=== PATIENT | male | born 1980 ===

== ENCOUNTER 2017-09-23 04:29 | Inpatient (IN) | payer OTHER ==
[2017-09-23 04:47] VITALS: BMI 35.9
[2017-09-23 05:37] LABS: EOS # 0.1 K/uL (0.0-0.7); HEMOGLOBIN 7.9 g/dL (12.0-18.0); NRBC % 0.1 % (0.0-2.0)
[2017-09-23 05:48] LABS: ALB/GLOB RATIO 0.6 (1.0-2.1); ALBUMIN 3.6 g/dL (3.5-5.0); ALT/SGPT 20 U/L (21-72); AST/SGOT 126 U/L (17-59); BLOOD UREA NITROGEN 12 mg/dL (9-20); CALCIUM 8.7 mg/dl (8.6-10.4); GFR AFRICAN-AMERICAN > 60; GFR NON-AFRICAN AMERICAN > 60; LIPASE 507 U/L (23-300)
[2017-09-23 05:50] LABS: BASO # 0.1 K/uL (0.0-0.2); EOS % 1.1 % (0.0-4.0); LYMPH # 0.6 K/uL (1.0-4.3); LYMPH % 6.6 % (20.0-40.0); MEAN CELL VOLUME 100.6 fL (80.0-94.0); MEAN CORPUSCULAR HEMOGLOBIN 34.8 pg (27.0-31.0); MEAN CORPUSCULAR HGB CONC 34.6 g/dL (33.0-37.0); MEAN PLATELET VOLUME 8.5 fL (7.2-11.7); MONO % 10.6 % (0.0-10.0); NEUT # 7.4 K/uL (1.8-7.0); NEUT % 80.7 % (50.0-75.0); PLATELET COUNT 64 K/uL (130-400); RBC 2.27 Mil/uL (4.40-5.90); RED CELL DISTRIBUTION WIDTH 19.7 % (11.5-14.5); WHITE BLOOD COUNT 9.1 K/uL (4.8-10.8)
[2017-09-23 05:54] LABS: INR 1.9; PROTHROMBIN TIME 21.5 SECONDS (9.7-12.2)
[2017-09-23] MEDS ORDERED: Iodixanol 320 MG/ML 100 ML BOTTLE IV ONE (05:55)
[2017-09-23 06:20] LABS: BARBITURATES, UR NEGATIVE (NEGATIVE); BENZODIAZEPINES, UR NEGATIVE (NEGATIVE); OPIATES, UR NEGATIVE (NEGATIVE); PHENCYCLIDINE, UR NEGATIVE (NEGATIVE)
--- NOTE | 2017-09-23 06:24 | C.PDOC ---
History Of Present Illness <Bhaskar Burrows - Last Filed: 09/23/17 06:39> <Devi Richards - Last Filed: 09/23/17 17:32> 37 year old male presents to the ER with a complaint of dark stools, icteric skin, and increasing leg edema for the past 4 days. Patient reports he drinks a liter of vodka a day for many years. Patient participated in ETOG detox in 2016 but relapsed soon after. Denies chest pain, SOB, fever, or chills. (Bhaskar Burrows) History Per: Patient History/Exam Limitations: no limitations Onset/Duration Of Symptoms: Days Current Symptoms Are (Timing): Still Present Recent travel outside of the [place]: No <Bhaskar Burrows - Last Filed: 09/23/17 06:39> <Devi Richards - Last Filed: 09/23/17 17:32> Time Seen by Provider: 09/23/17 04:55 Chief Complaint (Nursing): Lower Extremity Problem/Injury Past Medical History Reviewed: Historical Data, Nursing Documentation, Vital Signs Family History: States: Unknown Family Hx - Social History Hx Alcohol Use: Yes (1 LITER OF VODKA) Hx Substance Use: No - Immunization History Hx Tetanus Toxoid Vaccination: Yes Hx Influenza Vaccination: No Hx Pneumococcal Vaccination: No <Bhaskar Burrows - Last Filed: 09/23/17 06:39> Vital Signs: Last Vital Signs Temp 99.1 F 09/23/17 15:30 Pulse 112 H 09/23/17 15:30 Resp 20 09/23/17 15:30 BP 123/60 09/23/17 15:30 Pulse Ox 98 09/23/17 15:30 Review Of Systems Constitutional: Negative for: Fever, Chills Cardiovascular: Negative for: Chest Pain, Palpitations Respiratory: Negative for: Shortness of Breath Gastrointestinal: Positive for: Other (Dark stools). Negative for: Abdominal Pain Skin: Positive for: Jaundice <Bhaskar Burrows - Last Filed: 09/23/17 06:39> Physical Exam - Physical Exam Appears: Non-toxic, Other (Tremulous and anxious) Skin: Warm, Dry, Jaundice Head: Atraumatic, Normacephalic Eye(s): bilateral: Scleral Icterus Oral Mucosa: Moist Neck: Normal, Supple Chest: Symmetrical, No Tenderness Cardiovascular: Rhythm Regular Respiratory: Normal Breath Sounds, No Rales, No Rhonchi, No Wheezing Gastrointestinal/Abdominal: Soft, Other (Obese, enlarged liver, positive fluid wave) Extremity: Pedal Edema (Pitting to lower extremity up to the hips 4/4 symmetrically) Neurological/Psych: Oriented x3, Normal Speech <Bhaskar Burrows - Last Filed: 09/23/17 06:39> ED Course And Treatment - Laboratory Results Result Diagrams: 09/23/17 05:29 09/23/17 05:29 Lab Interpretation: Abnormal (t-bili) O2 Sat by Pulse Oximetry: 98 (Room air) Pulse Ox Interpretation: Normal - Radiology CXR: Interpreted by Hi CXR Interpretation: Yes: No Acute Disease Progress Note: CT abd/pel, blood work, CXR, and urinalysis ordered. Ativan administered. Reevaluation Time: 06:41 Reassessment Condition: Improved - Physician Consult Information Outcome Of Conversation: [id number]: d/w Medicine Household Coordinator- Dr. Kvng Ballard, ok to admit. <Bhaskar Burrows - Last Filed: 09/23/17 06:39> - Laboratory Results Result Diagrams: 09/23/17 11:18 09/23/17 05:29 <Devi Richards - Last Filed: 09/23/17 17:32> Medical Decision Making <Bhaskar Burrows - Last Filed: 09/23/17 06:39> <Devi Richards - Last Filed: 09/23/17 17:32> Medical Decision Making: alcohol abuse, hepatic cirrhosis, hepato-splenomegaly, upper GI bleed, probably variceal vs gastritis, liver failure with icterus. (Bhaskar Burrows) Disposition Doctor Will See Patient In The: Hospital Counseled Patient/Family Regarding: Studies Performed, Diagnosis - Disposition Disposition Time: 06:43 <Bhaskar Burrows - Last Filed: 09/23/17 06:39> <Devi Richards - Last Filed: 09/23/17 17:32> - Disposition Disposition: HOSPITALIZED Condition: FAIR - Clinical Impression Clinical Impression: Upper GI bleed, Decompensated hepatic cirrhosis - Scribe Statement The provider has reviewed the documentation as recorded by the Scribe <Bhaskar Burrows - Last Filed: 09/23/17 06:39> <Devi Richards - Last Filed: 09/23/17 17:32> - Scribe Statement Melvin Giraldo All medical record entries made by the Scribe were at my direction and personally dictated by me. I have reviewed the chart and agree that the record accurately reflects my personal performance of the history, physical exam, medical decision making, and the department course for this patient. I have also personally directed, reviewed, and agree with the discharge instructions and disposition. (Bhaskar Burrows) Addendum <Bhaskar Burrows - Last Filed: 09/23/17 06:39> <Devi Richards - Last Filed: 09/23/17 17:32> Addendum: 09/23/17 17:32 I was not involved in the care of this patient. (Devi Richards)
[2017-09-23 06:25] LABS: GRANULAR CAST 10 /lpf (0-1); SQUAMOUS EPITHIAL 1 /hpf (0-5); URINE BACTERIA RARE (<OCC); URINE BILIRUBIN 1+ (NEGATIVE); URINE BLOOD NEGATIVE (NEGATIVE); URINE CLARITY Hazy (Clear); URINE COLOR Amber (YELLOW); URINE GLUCOSE (UA) NORMAL (Normal); URINE LEUKOCYTE ESTERASE NEG Leu/uL (Negative); URINE PROTEIN 2+ mg/dL (NEGATIVE)
[2017-09-23 07:06] LABS: ANISOCYTOSIS MODERATE; BASOPHIL 1 % (0-2); EOSINOPHIL 1 % (0-4); LYMPHOCYTE 4 % (20-40); MONOCYTE 8 % (0-10); NEUTROPHIL 86 % (50-75); PLATELET ESTIMATE DECREASED (NORMAL); TARGET CELLS SLIGHT; TOTAL CELLS COUNTED 100
[2017-09-23 07:07] LABS: POLYCHROMIC SLIGHT; TEARDROP CELLS SLIGHT
--- NOTE | 2017-09-23 07:59 | CT ---
EXAM: CT Abdomen and Pelvis With Intravenous Contrast EXAM DATE/TIME: 09/23/2017 5:10 AM CLINICAL HISTORY: 37 years old, male; Pain; Abdominal pain and other: Abd ascites, liver failure TECHNIQUE: Axial computed tomography images of the abdomen and pelvis with intravenous contrast. All CT scans at this facility use one or more dose reduction techniques, viz.: automated exposure control; ma/kV adjustment per patient size (including targeted exams where dose is matched to indication; i.e. head); or iterative reconstruction technique. Coronal and sagittal reformatted images were created and reviewed. CONTRAST: 100 mL of [id number] administered intravenously. COMPARISON: No relevant prior studies available. FINDINGS: There is only faint contrast present within the vasculature and solid organs. There is sludge and calculi within the gallbladder. The gallbladder wall is thickened which could be due to overall edema versus acute infectious/inflammatory process. The liver and spleen are enlarged. There are varices throughout the upper abdomen. Pancreas, adrenals, and kidneys are normal. Decompressed urinary bladder limiting evaluation for wall thickness. The suprarenal aorta measures 2.1 cm in maximal dimensions of the infrarenal aorta measures 1.8 cm. There is a trace amount of perihepatic fluid. The right psoas muscle and right iliopsoas muscle are enlarged with indistinct borders (measuring 8 x 6.5 cm on the right compared to 5 x 4.5 cm on the left). There is stranding surrounding the right psoas muscle most notably along the anterior aspect. Diagnostic possibilities would include infectious/inflammatory process versus hematoma. Correlation with clinical symptoms and laboratory values may be helpful. There is slight mass effect upon the right femoral vessels by the enlarged right iliopsoas muscle. IMPRESSION: Hepatomegaly and splenomegaly. Varices. Cholelithiasis with thickened gallbladder wall. Clinical correlation with regard to signs/symptoms of cholecystitis. Ultrasound if indicated. Enlarged indistinct right psoas muscle and right iliopsoas muscle with surrounding stranding most notably along the anterior aspect. Diagnostic possibilities would include infectious/inflammatory process versus hematoma. Correlation with clinical symptoms and laboratory values may be helpful
--- NOTE | 2017-09-23 08:39 | RAD ---
PROCEDURE: CHEST RADIOGRAPH, 1 VIEW HISTORY: abd pain COMPARISON: None available. FINDINGS: LUNGS: Examination limited by severe apical lordotic positioning. No infiltrate. PLEURA: No pneumothorax or pleural fluid seen. CARDIOVASCULAR: Normal. OSSEOUS STRUCTURES: No significant abnormalities. VISUALIZED UPPER ABDOMEN: Normal. OTHER FINDINGS: None. IMPRESSION: No active disease.
[2017-09-23] MEDS ORDERED: Pneumococcal 23-Valent Vaccine SC ONE (09:41)
[2017-09-23] MEDS: Potassium Chloride 20 mEq ER Tab PO SCH (11:04)
[2017-09-23 11:51] LABS: BASO # 0.1 K/uL (0.0-0.2); BASO % 0.9 % (0.0-2.0); EOS # 0.1 K/uL (0.0-0.7); EOS % 1.5 % (0.0-4.0); HEMOGLOBIN 7.3 g/dL (12.0-18.0); LYMPH # 1.1 K/uL (1.0-4.3); LYMPH % 12.8 % (20.0-40.0); MEAN CORPUSCULAR HEMOGLOBIN 34.4 pg (27.0-31.0); MEAN CORPUSCULAR HGB CONC 34.1 g/dL (33.0-37.0); MEAN PLATELET VOLUME 8.5 fL (7.2-11.7); MONO % 11.9 % (0.0-10.0); NEUT % 72.9 % (50.0-75.0); NRBC % 0.2 % (0.0-2.0); RBC 2.11 Mil/uL (4.40-5.90); WHITE BLOOD COUNT 8.3 K/uL (4.8-10.8)
[2017-09-23] MEDS ORDERED: FOLIC ACID IV SCH (14:30)
[2017-09-23] MEDS: metroNIDAZOLE IV 250mg/50 ml 250 MG/50 ML BAG IVPB SCH (14:30)
[2017-09-23] MEDS ORDERED: THIAMINE IV SCH (14:30)
[2017-09-23] MEDS ORDERED: [UNRECOGNIZED DRUG - OTHER] IV SCH (14:30)
[2017-09-23] MEDS ORDERED: MULTIVITAMIN IV SCH (14:30)
--- NOTE | 2017-09-23 14:40 | CP.PCM.HP ---
Past Patient History - Past Medical History & Family History Past Medical History?: No - Past Social History Smoking Status: Former Smoker - HEMATOLOGICAL/ONCOLOGICAL Hx Cirrhosis: Yes - MUSCULOSKELETAL/RHEUMATOLOGICAL Hx Falls: Yes - PSYCHIATRIC Hx Substance Use: No - SURGICAL HISTORY Hx Surgeries: No - ANESTHESIA Hx Anesthesia: No Meds Allergies/Adverse Reactions: Allergies Allergy/AdvReac Type Severity Reaction Status Date / Time No Known Allergies Allergy Verified 09/23/17 04:46 Physical Exam - Constitutional Appears: Well - Head Exam Head Exam: ATRAUMATIC, NORMAL INSPECTION, NORMOCEPHALIC - Eye Exam Eye Exam: EOMI, Normal appearance, PERRL Pupil Exam: NORMAL ACCOMODATION, PERRL - ENT Exam ENT Exam: Mucous Membranes Moist, Normal Exam - Neck Exam Neck exam: Positive for: Normal Inspection - Respiratory Exam Respiratory Exam: Decreased Breath Sounds - Cardiovascular Exam Cardiovascular Exam: REGULAR RHYTHM, +S1, +S2 - GI/Abdominal Exam GI & Abdominal Exam: Diminished Bowel Sounds, Soft - Rectal Exam Rectal Exam: Deferred Results - Vital Signs Recent Vital Signs: Last Vital Signs Temp 98.6 F 09/23/17 08:39 Pulse 114 H 09/23/17 08:39 Resp 20 09/23/17 08:39 BP 127/60 09/23/17 10:59 Pulse Ox 99 09/23/17 08:39 - Labs Result Diagrams: 09/23/17 11:18 09/23/17 05:29 Labs: Laboratory Results - last 24 hr 09/23/17 09/23/17 09/23/17 05:29 05:29 05:29 WBC 9.1 RBC 2.27 L Hgb 7.9 L Hct 22.8 L MCV 100.6 H MCH 34.8 H MCHC 34.6 RDW 19.7 H Plt Count 64 L MPV 8.5 Neut % (Auto) 80.7 H Lymph % (Auto) 6.6 L Crawford % (Auto) 10.6 H Eos % (Auto) 1.1 Baso % (Auto) 1.0 Neut # (Auto) 7.4 H Lymph # (Auto) 0.6 L Crawford # (Auto) 1.0 H Eos # (Auto) 0.1 Baso # (Auto) 0.1 Neutrophils % (Manual) 86 H Lymphocytes % (Manual) 4 L Monocytes % (Manual) 8 Eosinophils % (Manual) 1 Basophils % (Manual) 1 Platelet Estimate Decreased L Polychromasia Slight Anisocytosis (manual) Moderate Macrocytosis (manual) Moderate Target Cells Slight Tear Drop Cells Slight PT 21.5 H INR 1.9 APTT 39 H Sodium 140 Potassium 3.3 L Chloride 101 Carbon Dioxide 17 L Anion Gap 25 H BUN 12 Creatinine 0.6 L Est GFR ( Amer) > 60 Est GFR (Non-Af Amer) > 60 Random Glucose 116 H Lactic Acid Calcium 8.7 Total Bilirubin 12.1 H AST 126 H ALT 20 L Alkaline Phosphatase 147 H Ammonia Total Protein 9.7 H Albumin 3.6 Globulin 6.1 H Albumin/Globulin Ratio 0.6 L Lipase 507 H Urine Color Urine Clarity Urine pH Ur Specific [place] Urine Protein Urine Glucose (UA) Urine Ketones Urine Blood Urine Nitrate Urine Bilirubin Urine Urobilinogen Ur Leukocyte Esterase Urine WBC (Auto) Urine RBC (Auto) Ur Squamous Epith Cells Urine Bacteria Hyaline Casts Granular Casts (Auto) Urine Opiates Screen Urine Methadone Screen Ur Barbiturates Screen Ur Phencyclidine Scrn Ur Amphetamines Screen U Benzodiazepines Scrn U Oth Cocaine Metabols U Cannabinoids Screen Alcohol, Quantitative < 10 Blood Type Blood Type Confirm Antibody Screen 09/23/17 09/23/17 09/23/17 05:29 05:36 06:01 WBC RBC Hgb Hct MCV MCH MCHC RDW Plt Count MPV Neut % (Auto) Lymph % (Auto) Crawford % (Auto) Eos % (Auto) Baso % (Auto) Neut # (Auto) Lymph # (Auto) Crawford # (Auto) Eos # (Auto) Baso # (Auto) Neutrophils % (Manual) Lymphocytes % (Manual) Monocytes % (Manual) Eosinophils % (Manual) Basophils % (Manual) Platelet Estimate Polychromasia Anisocytosis (manual) Macrocytosis (manual) Target Cells Tear Drop Cells PT INR APTT Sodium Potassium Chloride Carbon Dioxide Anion Gap BUN Creatinine Est GFR ( Amer) Est GFR (Non-Af Amer) Random Glucose Lactic Acid 4.0 H* Calcium Total Bilirubin AST ALT Alkaline Phosphatase Ammonia 40 H Total Protein Albumin Globulin Albumin/Globulin Ratio Lipase Urine Color Shahana Urine Clarity Hazy Urine pH 5.0 Ur Specific [place] 1.023 Urine Protein 2+ H Urine Glucose (UA) Normal Urine Ketones 1+ H Urine Blood Negative Urine Nitrate Negative Urine Bilirubin 1+ H Urine Urobilinogen 4.0 Ur Leukocyte Esterase Neg Urine WBC (Auto) 3 Urine RBC (Auto) < 1 Ur Squamous Epith Cells 1 Urine Bacteria Rare Hyaline Casts 6-10 H Granular Casts (Auto) 10 Urine Opiates Screen Urine Methadone Screen Ur Barbiturates Screen Ur Phencyclidine Scrn Ur Amphetamines Screen U Benzodiazepines Scrn U Oth Cocaine Metabols U Cannabinoids Screen Alcohol, Quantitative Blood Type Blood Type Confirm Antibody Screen 09/23/17 09/23/17 09/23/17 06:01 06:50 11:18 WBC 8.3 RBC 2.11 L Hgb 7.3 L Hct 21.3 L MCV 101.0 H MCH 34.4 H MCHC 34.1 RDW 20.0 H Plt Count 61 L MPV 8.5 Neut % (Auto) 72.9 Lymph % (Auto) 12.8 L Crawford % (Auto) 11.9 H Eos % (Auto) 1.5 Baso % (Auto) 0.9 Neut # (Auto) 6.0 Lymph # (Auto) 1.1 Crawford # (Auto) 1.0 H Eos # (Auto) 0.1 Baso # (Auto) 0.1 Neutrophils % (Manual) Lymphocytes % (Manual) Monocytes % (Manual) Eosinophils % (Manual) Basophils % (Manual) Platelet Estimate Polychromasia Anisocytosis (manual) Macrocytosis (manual) Target Cells Tear Drop Cells PT INR APTT Sodium Potassium Chloride Carbon Dioxide Anion Gap BUN Creatinine Est GFR ( Amer) Est GFR (Non-Af Amer) Random Glucose Lactic Acid Calcium Total Bilirubin AST ALT Alkaline Phosphatase Ammonia Total Protein Albumin Globulin Albumin/Globulin Ratio Lipase Urine Color Urine Clarity Urine pH Ur Specific [place] Urine Protein Urine Glucose (UA) Urine Ketones Urine Blood Urine Nitrate Urine Bilirubin Urine Urobilinogen Ur Leukocyte Esterase Urine WBC (Auto) Urine RBC (Auto) Ur Squamous Epith Cells Urine Bacteria Hyaline Casts Granular Casts (Auto) Urine Opiates Screen Negative Urine Methadone Screen Negative Ur Barbiturates Screen Negative Ur Phencyclidine Scrn Negative Ur Amphetamines Screen Negative U Benzodiazepines Scrn Negative U Oth Cocaine Metabols Negative U Cannabinoids Screen Negative Alcohol, Quantitative Blood Type B NEGATIVE Blood Type Confirm B NEGATIVE Antibody Screen Negative 09/23/17 11:38 WBC RBC Hgb Hct MCV MCH MCHC RDW Plt Count MPV Neut % (Auto) Lymph % (Auto) Crawford % (Auto) Eos % (Auto) Baso % (Auto) Neut # (Auto) Lymph # (Auto) Crawford # (Auto) Eos # (Auto) Baso # (Auto) Neutrophils % (Manual) Lymphocytes % (Manual) Monocytes % (Manual) Eosinophils % (Manual) Basophils % (Manual) Platelet Estimate Polychromasia Anisocytosis (manual) Macrocytosis (manual) Target Cells Tear Drop Cells PT INR APTT Sodium Potassium Chloride Carbon Dioxide Anion Gap BUN Creatinine Est GFR ( Amer) Est GFR (Non-Af Amer) Random Glucose Lactic Acid 1.3 Calcium Total Bilirubin AST ALT Alkaline Phosphatase Ammonia Total Protein Albumin Globulin Albumin/Globulin Ratio Lipase Urine Color Urine Clarity Urine pH Ur Specific [place] Urine Protein Urine Glucose (UA) Urine Ketones Urine Blood Urine Nitrate Urine Bilirubin Urine Urobilinogen Ur Leukocyte Esterase Urine WBC (Auto) Urine RBC (Auto) Ur Squamous Epith Cells Urine Bacteria Hyaline Casts Granular Casts (Auto) Urine Opiates Screen Urine Methadone Screen Ur Barbiturates Screen Ur Phencyclidine Scrn Ur Amphetamines Screen U Benzodiazepines Scrn U Oth Cocaine Metabols U Cannabinoids Screen Alcohol, Quantitative Blood Type Blood Type Confirm Antibody Screen
--- NOTE | 2017-09-23 15:55 | CP.PCM.CON ---
Addendum entered and electronically signed by Katrina Ballard DO 09/23/17 16:09: Abdominal varcies thorugout noted on CT, will start on octreotide Original Note: <Katrina Ballard - Last Filed: 09/23/17 15:55> History of Present Illness - History of Present Illness History of Present Illness: PGY4 Initial GI Consult Liam Haque is a 37M w/ hx of ETOH abuse who presents to the ER due to juandice. He reports drinking 1L of vodka daily for the past 4-5 years. He notes that he was sober for a few months after attending rehab in 03/2017, but soon relapsed after discharge. He denies ny abd pain. He notes having black stool for 3-4 days at the beginning of the week. He notes that his last drink was 2-3 days prior to arrival. He denies any previous admission for liver or pancreatitis related issues. He currently denies any melena, hematemesis, or coffee-ground emesis. He was found to have a hgb of 7.9. Her was started on PPI and ativan for withdrawl protocol. Denies any previous endoscopies or colonoscopies. Denies any recent NSAID use. PMHx: ETOH use PSHx: Denies Social hx: ETOH use 1L daily for 4-5 years, denies smoking or other illicit drug use Family hx: denies any colon or GI related cancer Endo Hx: denies ROS: 12-point ROS conducted, neg other than above Past Patient History - Past Medical History & Family History Past Medical History?: No - Past Social History Smoking Status: Former Smoker - HEMATOLOGICAL/ONCOLOGICAL Hx Cirrhosis: Yes - MUSCULOSKELETAL/RHEUMATOLOGICAL Hx Falls: Yes - PSYCHIATRIC Hx Substance Use: No - SURGICAL HISTORY Hx Surgeries: No - ANESTHESIA Hx Anesthesia: No Meds Allergies/Adverse Reactions: Allergies Allergy/AdvReac Type Severity Reaction Status Date / Time No Known Allergies Allergy Verified 09/23/17 04:46 - Medications Medications: Current Medications Furosemide (Lasix) 20 mg IVP DAILY [facility] Last Admin: 09/23/17 10:59 Dose: 20 mg Ceftriaxone Sodium 1 gm/ (Sodium Chloride) 100 mls @ 100 mls/hr IVPB Q24H [facility] PRN Reason: Protocol Last Admin: 09/23/17 12:11 Dose: 100 mls/hr Metronidazole (Flagyl) 250 mg in 50 mls @ 100 mls/hr IVPB Q8 [facility] PRN Reason: Protocol Last Admin: 09/23/17 14:30 Dose: 100 mls/hr Multivitamins/Vitamin C 10 ml/Folic Acid 1 mg/ Thiamine HCl 1 mg/ Dextrose/ Sodium Chloride 1,010.21 mls @ 100 mls/hr IV .Q10H7M [facility] Stop: 09/24/17 00:36 Last Admin: 09/23/17 15:28 Dose: 100 mls/hr Potassium Chloride (K-Dur 20 Meq Er Tab) 40 meq PO DAILY [facility] Stop: 09/24/17 10:01 Last Admin: 09/23/17 11:04 Dose: 40 meq Physical Exam - Constitutional Appears: No Acute Distress, Chronically Ill - Head Exam Head Exam: ATRAUMATIC, NORMOCEPHALIC - Eye Exam Eye Exam: Scleral icterus - ENT Exam ENT Exam: Mucous Membranes Moist, Normal Exam - Neck Exam Neck exam: Positive for: Normal Inspection - Respiratory Exam Respiratory Exam: Clear to Auscultation Bilateral, NORMAL BREATHING PATTERN. absent: Rales, Rhonchi, Wheezes - Cardiovascular Exam Cardiovascular Exam: REGULAR RHYTHM, +S1, +S2 - GI/Abdominal Exam GI & Abdominal Exam: Normal Bowel Sounds, Soft. absent: Organomegaly, Rebound, Rigid - Rectal Exam Rectal Exam: NORMAL INSPECTION. absent: Black Stool, Bloody Stool - Extremities Exam Extremities exam: Positive for: pedal edema. Negative for: joint swelling - Psychiatric Exam Psychiatric exam: Normal Affect, Normal Mood - Skin Skin Exam: Dry, Intact, Warm Additional comments: juandice Results - Vital Signs Recent Vital Signs: Last Vital Signs Temp 99.1 F 09/23/17 15:30 Pulse 112 H 09/23/17 15:30 Resp 20 09/23/17 15:30 BP 123/60 09/23/17 15:30 Pulse Ox 98 09/23/17 15:30 - Labs Result Diagrams: 09/23/17 11:18 09/23/17 05:29 Labs: Laboratory Results - last 24 hr 09/23/17 09/23/17 09/23/17 05:29 05:29 05:29 WBC 9.1 RBC 2.27 L Hgb 7.9 L Hct 22.8 L MCV 100.6 H MCH 34.8 H MCHC 34.6 RDW 19.7 H Plt Count 64 L MPV 8.5 Neut % (Auto) 80.7 H Lymph % (Auto) 6.6 L [place] % (Auto) 10.6 H Eos % (Auto) 1.1 Baso % (Auto) 1.0 Neut # (Auto) 7.4 H Lymph # (Auto) 0.6 L [place] # (Auto) 1.0 H Eos # (Auto) 0.1 Baso # (Auto) 0.1 Neutrophils % (Manual) 86 H Lymphocytes % (Manual) 4 L Monocytes % (Manual) 8 Eosinophils % (Manual) 1 Basophils % (Manual) 1 Platelet Estimate Decreased L Polychromasia Slight Anisocytosis (manual) Moderate Macrocytosis (manual) Moderate Target Cells Slight Tear Drop Cells Slight PT 21.5 H INR 1.9 APTT 39 H Sodium 140 Potassium 3.3 L Chloride 101 Carbon Dioxide 17 L Anion Gap 25 H BUN 12 Creatinine 0.6 L Est GFR ( Amer) > 60 Est GFR (Non-Af Amer) > 60 Random Glucose 116 H Lactic Acid Calcium 8.7 Total Bilirubin 12.1 H AST 126 H ALT 20 L Alkaline Phosphatase 147 H Ammonia Total Protein 9.7 H Albumin 3.6 Globulin 6.1 H Albumin/Globulin Ratio 0.6 L Lipase 507 H Urine Color Urine Clarity Urine pH Ur Specific [place] Urine Protein Urine Glucose (UA) Urine Ketones Urine Blood Urine Nitrate Urine Bilirubin Urine Urobilinogen Ur Leukocyte Esterase Urine WBC (Auto) Urine RBC (Auto) Ur Squamous Epith Cells Urine Bacteria Hyaline Casts Granular Casts (Auto) Urine Opiates Screen Urine Methadone Screen Ur Barbiturates Screen Ur Phencyclidine Scrn Ur Amphetamines Screen U Benzodiazepines Scrn U Oth Cocaine Metabols U Cannabinoids Screen Alcohol, Quantitative < 10 Blood Type Blood Type Confirm Antibody Screen 09/23/17 09/23/17 09/23/17 05:29 05:36 06:01 WBC RBC Hgb Hct MCV MCH MCHC RDW Plt Count MPV Neut % (Auto) Lymph % (Auto) [place] % (Auto) Eos % (Auto) Baso % (Auto) Neut # (Auto) Lymph # (Auto) [place] # (Auto) Eos # (Auto) Baso # (Auto) Neutrophils % (Manual) Lymphocytes % (Manual) Monocytes % (Manual) Eosinophils % (Manual) Basophils % (Manual) Platelet Estimate Polychromasia Anisocytosis (manual) Macrocytosis (manual) Target Cells Tear Drop Cells PT INR APTT Sodium Potassium Chloride Carbon Dioxide Anion Gap BUN Creatinine Est GFR ( Amer) Est GFR (Non-Af Amer) Random Glucose Lactic Acid 4.0 H* Calcium Total Bilirubin AST ALT Alkaline Phosphatase Ammonia 40 H Total Protein Albumin Globulin Albumin/Globulin Ratio Lipase Urine Color Shahana Urine Clarity Hazy Urine pH 5.0 Ur Specific [place] 1.023 Urine Protein 2+ H Urine Glucose (UA) Normal Urine Ketones 1+ H Urine Blood Negative Urine Nitrate Negative Urine Bilirubin 1+ H Urine Urobilinogen 4.0 Ur Leukocyte Esterase Neg Urine WBC (Auto) 3 Urine RBC (Auto) < 1 Ur Squamous Epith Cells 1 Urine Bacteria Rare Hyaline Casts 6-10 H Granular Casts (Auto) 10 Urine Opiates Screen Urine Methadone Screen Ur Barbiturates Screen Ur Phencyclidine Scrn Ur Amphetamines Screen U Benzodiazepines Scrn U Oth Cocaine Metabols U Cannabinoids Screen Alcohol, Quantitative Blood Type Blood Type Confirm Antibody Screen 09/23/17 09/23/17 09/23/17 06:01 06:50 11:18 WBC 8.3 RBC 2.11 L Hgb 7.3 L Hct 21.3 L MCV 101.0 H MCH 34.4 H MCHC 34.1 RDW 20.0 H Plt Count 61 L MPV 8.5 Neut % (Auto) 72.9 Lymph % (Auto) 12.8 L [place] % (Auto) 11.9 H Eos % (Auto) 1.5 Baso % (Auto) 0.9 Neut # (Auto) 6.0 Lymph # (Auto) 1.1 [place] # (Auto) 1.0 H Eos # (Auto) 0.1 Baso # (Auto) 0.1 Neutrophils % (Manual) Lymphocytes % (Manual) Monocytes % (Manual) Eosinophils % (Manual) Basophils % (Manual) Platelet Estimate Polychromasia Anisocytosis (manual) Macrocytosis (manual) Target Cells Tear Drop Cells PT INR APTT Sodium Potassium Chloride Carbon Dioxide Anion Gap BUN Creatinine Est GFR ( Amer) Est GFR (Non-Af Amer) Random Glucose Lactic Acid Calcium Total Bilirubin AST ALT Alkaline Phosphatase Ammonia Total Protein Albumin Globulin Albumin/Globulin Ratio Lipase Urine Color Urine Clarity Urine pH Ur Specific [place] Urine Protein Urine Glucose (UA) Urine Ketones Urine Blood Urine Nitrate Urine Bilirubin Urine Urobilinogen Ur Leukocyte Esterase Urine WBC (Auto) Urine RBC (Auto) Ur Squamous Epith Cells Urine Bacteria Hyaline Casts Granular Casts (Auto) Urine Opiates Screen Negative Urine Methadone Screen Negative Ur Barbiturates Screen Negative Ur Phencyclidine Scrn Negative Ur Amphetamines Screen Negative U Benzodiazepines Scrn Negative U Oth Cocaine Metabols Negative U Cannabinoids Screen Negative Alcohol, Quantitative Blood Type B NEGATIVE Blood Type Confirm B NEGATIVE Antibody Screen Negative 09/23/17 11:38 WBC RBC Hgb Hct MCV MCH MCHC RDW Plt Count MPV Neut % (Auto) Lymph % (Auto) [place] % (Auto) Eos % (Auto) Baso % (Auto) Neut # (Auto) Lymph # (Auto) [place] # (Auto) Eos # (Auto) Baso # (Auto) Neutrophils % (Manual) Lymphocytes % (Manual) Monocytes % (Manual) Eosinophils % (Manual) Basophils % (Manual) Platelet Estimate Polychromasia Anisocytosis (manual) Macrocytosis (manual) Target Cells Tear Drop Cells PT INR APTT Sodium Potassium Chloride Carbon Dioxide Anion Gap BUN Creatinine Est GFR ( Amer) Est GFR (Non-Af Amer) Random Glucose Lactic Acid 1.3 Calcium Total Bilirubin AST ALT Alkaline Phosphatase Ammonia Total Protein Albumin Globulin Albumin/Globulin Ratio Lipase Urine Color Urine Clarity Urine pH Ur Specific [place] Urine Protein Urine Glucose (UA) Urine Ketones Urine Blood Urine Nitrate Urine Bilirubin Urine Urobilinogen Ur Leukocyte Esterase Urine WBC (Auto) Urine RBC (Auto) Ur Squamous Epith Cells Urine Bacteria Hyaline Casts Granular Casts (Auto) Urine Opiates Screen Urine Methadone Screen Ur Barbiturates Screen Ur Phencyclidine Scrn Ur Amphetamines Screen U Benzodiazepines Scrn U Oth Cocaine Metabols U Cannabinoids Screen Alcohol, Quantitative Blood Type Blood Type Confirm Antibody Screen Assessment & Plan - Assessment and Plan (Free Text) Assessment: Liam Haque is a 37M w/ hx of chronic ETOH use who presents for juandice Juandice Alcoholic hepatitis, DF 51 Anemia Plan: -clears okay -EGD on monday -continue PPI BID -transfuse if hgb < 7 or symptomatic -Abd U/S -will send for viral hep serologies and autoimmune -steroids not indicated in possible setting of GI bleed -monitor LFTs and INR -will continue to follow -advised ETOH cessation D/W Dr. Edwards <Breonna Edwards - Last Filed: 09/23/17 17:24> Meds - Medications Medications: Current Medications Furosemide (Lasix) 20 mg IVP DAILY [facility] Last Admin: 09/23/17 10:59 Dose: 20 mg Ceftriaxone Sodium 1 gm/ (Sodium Chloride) 100 mls @ 100 mls/hr IVPB Q24H [facility] PRN Reason: Protocol Last Admin: 09/23/17 12:11 Dose: 100 mls/hr Metronidazole (Flagyl) 250 mg in 50 mls @ 100 mls/hr IVPB Q8 [facility] PRN Reason: Protocol Last Admin: 09/23/17 14:30 Dose: 100 mls/hr Multivitamins/Vitamin C 10 ml/Folic Acid 1 mg/ Thiamine HCl 1 mg/ Dextrose/ Sodium Chloride 1,010.21 mls @ 100 mls/hr IV .Q10H7M [facility] Stop: 09/24/17 00:36 Last Admin: 09/23/17 15:28 Dose: 100 mls/hr Octreotide Acetate 1,250 mcg/ (Sodium Chloride) 252.5 mls @ 5.05 mls/hr SC .Q24H [facility]; 25 MCG/HR PRN Reason: Protocol Pantoprazole Sodium (Protonix Inj) 40 mg IVP Q12H [facility] Potassium Chloride (K-Dur 20 Meq Er Tab) 40 meq PO DAILY [facility] Stop: 09/24/17 10:01 Last Admin: 09/23/17 11:04 Dose: 40 meq Results - Vital Signs Recent Vital Signs: Last Vital Signs Temp 99.1 F 09/23/17 15:30 Pulse 112 H 09/23/17 15:30 Resp 20 09/23/17 15:30 BP 123/60 09/23/17 15:30 Pulse Ox 98 09/23/17 15:30 - Labs Result Diagrams: 09/23/17 11:18 09/23/17 05:29 Labs: Laboratory Results - last 24 hr 09/23/17 09/23/17 09/23/17 05:29 05:29 05:29 WBC 9.1 RBC 2.27 L Hgb 7.9 L Hct 22.8 L MCV 100.6 H MCH 34.8 H MCHC 34.6 RDW 19.7 H Plt Count 64 L MPV 8.5 Neut % (Auto) 80.7 H Lymph % (Auto) 6.6 L [place] % (Auto) 10.6 H Eos % (Auto) 1.1 Baso % (Auto) 1.0 Neut # (Auto) 7.4 H Lymph # (Auto) 0.6 L [place] # (Auto) 1.0 H Eos # (Auto) 0.1 Baso # (Auto) 0.1 Neutrophils % (Manual) 86 H Lymphocytes % (Manual) 4 L Monocytes % (Manual) 8 Eosinophils % (Manual) 1 Basophils % (Manual) 1 Platelet Estimate Decreased L Polychromasia Slight Anisocytosis (manual) Moderate Macrocytosis (manual) Moderate Target Cells Slight Tear Drop Cells Slight PT 21.5 H INR 1.9 APTT 39 H Sodium 140 Potassium 3.3 L Chloride 101 Carbon Dioxide 17 L Anion Gap 25 H BUN 12 Creatinine 0.6 L Est GFR ( Amer) > 60 Est GFR (Non-Af Amer) > 60 Random Glucose 116 H Lactic Acid Calcium 8.7 Total Bilirubin 12.1 H AST 126 H ALT 20 L Alkaline Phosphatase 147 H Ammonia Total Protein 9.7 H Albumin 3.6 Globulin 6.1 H Albumin/Globulin Ratio 0.6 L Lipase 507 H Urine Color Urine Clarity Urine pH Ur Specific [place] Urine Protein Urine Glucose (UA) Urine Ketones Urine Blood Urine Nitrate Urine Bilirubin Urine Urobilinogen Ur Leukocyte Esterase Urine WBC (Auto) Urine RBC (Auto) Ur Squamous Epith Cells Urine Bacteria Hyaline Casts Granular Casts (Auto) Urine Opiates Screen Urine Methadone Screen Ur Barbiturates Screen Ur Phencyclidine Scrn Ur Amphetamines Screen U Benzodiazepines Scrn U Oth Cocaine Metabols U Cannabinoids Screen Alcohol, Quantitative < 10 Blood Type Blood Type Confirm Antibody Screen 09/23/17 09/23/17 09/23/17 05:29 05:36 06:01 WBC RBC Hgb Hct MCV MCH MCHC RDW Plt Count MPV Neut % (Auto) Lymph % (Auto) [place] % (Auto) Eos % (Auto) Baso % (Auto) Neut # (Auto) Lymph # (Auto) [place] # (Auto) Eos # (Auto) Baso # (Auto) Neutrophils % (Manual) Lymphocytes % (Manual) Monocytes % (Manual) Eosinophils % (Manual) Basophils % (Manual) Platelet Estimate Polychromasia Anisocytosis (manual) Macrocytosis (manual) Target Cells Tear Drop Cells PT INR APTT Sodium Potassium Chloride Carbon Dioxide Anion Gap BUN Creatinine Est GFR ( Amer) Est GFR (Non-Af Amer) Random Glucose Lactic Acid 4.0 H* Calcium Total Bilirubin AST ALT Alkaline Phosphatase Ammonia 40 H Total Protein Albumin Globulin Albumin/Globulin Ratio Lipase Urine Color Shahana Urine Clarity Hazy Urine pH 5.0 Ur Specific [place] 1.023 Urine Protein 2+ H Urine Glucose (UA) Normal Urine Ketones 1+ H Urine Blood Negative Urine Nitrate Negative Urine Bilirubin 1+ H Urine Urobilinogen 4.0 Ur Leukocyte Esterase Neg Urine WBC (Auto) 3 Urine RBC (Auto) < 1 Ur Squamous Epith Cells 1 Urine Bacteria Rare Hyaline Casts 6-10 H Granular Casts (Auto) 10 Urine Opiates Screen Urine Methadone Screen Ur Barbiturates Screen Ur Phencyclidine Scrn Ur Amphetamines Screen U Benzodiazepines Scrn U Oth Cocaine Metabols U Cannabinoids Screen Alcohol, Quantitative Blood Type Blood Type Confirm Antibody Screen 09/23/17 09/23/17 09/23/17 06:01 06:50 11:18 WBC 8.3 RBC 2.11 L Hgb 7.3 L Hct 21.3 L MCV 101.0 H MCH 34.4 H MCHC 34.1 RDW 20.0 H Plt Count 61 L MPV 8.5 Neut % (Auto) 72.9 Lymph % (Auto) 12.8 L [place] % (Auto) 11.9 H Eos % (Auto) 1.5 Baso % (Auto) 0.9 Neut # (Auto) 6.0 Lymph # (Auto) 1.1 [place] # (Auto) 1.0 H Eos # (Auto) 0.1 Baso # (Auto) 0.1 Neutrophils % (Manual) Lymphocytes % (Manual) Monocytes % (Manual) Eosinophils % (Manual) Basophils % (Manual) Platelet Estimate Polychromasia Anisocytosis (manual) Macrocytosis (manual) Target Cells Tear Drop Cells PT INR APTT Sodium Potassium Chloride Carbon Dioxide Anion Gap BUN Creatinine Est GFR ( Amer) Est GFR (Non-Af Amer) Random Glucose Lactic Acid Calcium Total Bilirubin AST ALT Alkaline Phosphatase Ammonia Total Protein Albumin Globulin Albumin/Globulin Ratio Lipase Urine Color Urine Clarity Urine pH Ur Specific [place] Urine Protein Urine Glucose (UA) Urine Ketones Urine Blood Urine Nitrate Urine Bilirubin Urine Urobilinogen Ur Leukocyte Esterase Urine WBC (Auto) Urine RBC (Auto) Ur Squamous Epith Cells Urine Bacteria Hyaline Casts Granular Casts (Auto) Urine Opiates Screen Negative Urine Methadone Screen Negative Ur Barbiturates Screen Negative Ur Phencyclidine Scrn Negative Ur Amphetamines Screen Negative U Benzodiazepines Scrn Negative U Oth Cocaine Metabols Negative U Cannabinoids Screen Negative Alcohol, Quantitative Blood Type B NEGATIVE Blood Type Confirm B NEGATIVE Antibody Screen Negative 09/23/17 11:38 WBC RBC Hgb Hct MCV MCH MCHC RDW Plt Count MPV Neut % (Auto) Lymph % (Auto) [place] % (Auto) Eos % (Auto) Baso % (Auto) Neut # (Auto) Lymph # (Auto) [place] # (Auto) Eos # (Auto) Baso # (Auto) Neutrophils % (Manual) Lymphocytes % (Manual) Monocytes % (Manual) Eosinophils % (Manual) Basophils % (Manual) Platelet Estimate Polychromasia Anisocytosis (manual) Macrocytosis (manual) Target Cells Tear Drop Cells PT INR APTT Sodium Potassium Chloride Carbon Dioxide Anion Gap BUN Creatinine Est GFR ( Amer) Est GFR (Non-Af Amer) Random Glucose Lactic Acid 1.3 Calcium Total Bilirubin AST ALT Alkaline Phosphatase Ammonia Total Protein Albumin Globulin Albumin/Globulin Ratio Lipase Urine Color Urine Clarity Urine pH Ur Specific [place] Urine Protein Urine Glucose (UA) Urine Ketones Urine Blood Urine Nitrate Urine Bilirubin Urine Urobilinogen Ur Leukocyte Esterase Urine WBC (Auto) Urine RBC (Auto) Ur Squamous Epith Cells Urine Bacteria Hyaline Casts Granular Casts (Auto) Urine Opiates Screen Urine Methadone Screen Ur Barbiturates Screen Ur Phencyclidine Scrn Ur Amphetamines Screen U Benzodiazepines Scrn U Oth Cocaine Metabols U Cannabinoids Screen Alcohol, Quantitative Blood Type Blood Type Confirm Antibody Screen Attending/Attestation - Attestation I have personally seen and examined this patient.: Yes I have fully participated in the care of the patient.: Yes I have reviewed all pertinent clinical information: Yes Notes (Text): 09/23/17 17:00 Patient seen with GI fellow. This is a 37 yr old M with alcohol dependance and chronic ETOH use who presents for new onset jaundice in setting of alcoholic hepatitis. GI consulted for GI bleeding. Patient denies melena, hematemesis and hematochezia. rectal exam with brown stool. DF 51. Had dried blood on lips and mouth. EGD on Monday. Continue PPI bid. Will send for hepatitis and autoimmune serologies. Transfuse if hgb < 7 or symptomatic. Steroids not indicated in possible setting of GI bleed. Monitor LFTs and INR. Will continue to follow and alcohol cessation advised
[2017-09-23] MEDS ORDERED: Octreotide 1,250 MCG in Dextrose 5% In Water 250 ML SC SCH (16:15)
[2017-09-24] MEDS: metroNIDAZOLE IV 250mg/50 ml 250 MG/50 ML BAG IVPB SCH ×2 (06:37)
[2017-09-24 08:43] LABS: PROTHROMBIN TIME 22.9 SECONDS (9.7-12.2)
[2017-09-24 09:13] LABS: ALB/GLOB RATIO 0.6 (1.0-2.1); ALBUMIN 3.3 g/dL (3.5-5.0); ALT/SGPT 28 U/L (21-72); AST/SGOT 155 U/L (17-59); BLOOD UREA NITROGEN 13 mg/dL (9-20); CALCIUM 7.9 mg/dl (8.6-10.4); GFR AFRICAN-AMERICAN > 60; GFR NON-AFRICAN AMERICAN > 60
[2017-09-24 09:24] LABS: HEMOGLOBIN 6.7 g/dL (12.0-18.0); MEAN CELL VOLUME 101.4 fL (80.0-94.0); MEAN CORPUSCULAR HEMOGLOBIN 34.9 pg (27.0-31.0); MEAN CORPUSCULAR HGB CONC 34.5 g/dL (33.0-37.0); MEAN PLATELET VOLUME 8.7 fL (7.2-11.7); PLATELET COUNT 69 K/uL (130-400); RBC 1.92 Mil/uL (4.40-5.90); RED CELL DISTRIBUTION WIDTH 19.9 % (11.5-14.5); WHITE BLOOD COUNT 9.5 K/uL (4.8-10.8)
[2017-09-24 10:23] LABS: BASO # 0.1 K/uL (0.0-0.2); EOS # 0.4 K/uL (0.0-0.7); LYMPH # 0.4 K/uL (1.0-4.3); MONO # 1.2 K/uL (0.0-0.8); NEUT # 7.4 K/uL (1.8-7.0)
[2017-09-24 10:24] LABS: ANISOCYTOSIS MODERATE; BANDS 2 % (0-2); BASOPHIL 1 % (0-2); EOSINOPHIL 5 % (0-4); LYMPHOCYTE 4 % (20-40); MONOCYTE 12 % (0-10); NEUTROPHIL 76 % (50-75); PLATELET ESTIMATE DECREASED (NORMAL); TOTAL CELLS COUNTED 100
[2017-09-24 10:25] LABS: HYPOCHROMIC MODERATE; POIKILOCYTOSIS SLIGHT
[2017-09-24 10:26] LABS: TARGET CELLS SLIGHT; TOXIC GRANULATION PRESENT
[2017-09-24 10:36] VITALS: BP 124/62
[2017-09-24] MEDS: Potassium Chloride 20 mEq ER Tab PO SCH (10:36)
--- NOTE | 2017-09-24 10:54 | US ---
HISTORY: eval liver, r/o portal vein thrombosis COMPARISON: None. TECHNIQUE: Sonographic evaluation of the abdomen. FINDINGS: LIVER: Measures enlarged, measuring 25.3 cm craniocaudal. Diffusely increased echogenicity. Smooth contour. No mass. No intrahepatic biliary dilatation. Portal vein is patent and demonstrates normal direction of flow. GALLBLADDER: Sludge. No cholelithiasis. Mural thickening up to 5 mm. Negative sonographic Castillo sign. Probable adenomyomatosis. COMMON BILE DUCT: Measures 6 mm. No stones. No dilatation. PANCREAS: Unremarkable as visualized. No mass. No ductal dilatation. RIGHT KIDNEY: Measures 14.4cm. Normal echogenicity. No calculus, mass, or hydronephrosis. LEFT KIDNEY: Measures 14.3cm. Normal echogenicity. No calculus, mass, or hydronephrosis. SPLEEN: Splenomegaly. The spleen measures 18.2 cm in greatest dimension. No focal mass. AORTA: No aneurysmal dilatation. IVC: Unremarkable. OTHER FINDINGS: None. IMPRESSION: Hepatic splenomegaly. Fatty liver. Gallbladder sludge. Adenomyomatosis the gallbladder. Nonspecific mural thickening of the gallbladder. Negative sonographic Castillo sign. Patent portal vein with normal direction of flow.
--- NOTE | 2017-09-24 10:58 | PCM.PSYCH ---
Initial Psychiatric Evaluation - Initial Psychiatric Evaluation Type of Admission: Voluntary Legal Status: Capacity Chief Complaint (in patient's own words): "I'm fine" History of Present Illness and Precipitating Events: Consultation was asked for his alcohol dependence The pt is seen, chart reviewed and case discussed He is a 37 y/o male, single, no child, lives with a friend, recently left work He has hepatic failure, jaundiced, has bilateral edema, but still he minimizes his condition adn thinks if he can only eat better he would be OK. He acknowledged that he had been drinking 1 lt x5 years and denied any major issues so far. Agreed with detox but later on left AMA Past psych hx: Denied. One detox/rehab, no drugs, smokes 1 ppd Medical hx: As above Family hx: None Current Medications: Active Medications Generic Name Dose Route Start Last Admin Trade Name Freq PRN Reason Stop Dose Admin Furosemide 20 mg 09/23/17 10:00 09/24/17 10:35 Lasix IVP 20 mg DAILY [facility] Administration Ceftriaxone Sodium 1 gm/ 100 mls @ 100 mls/hr 09/23/17 11:30 09/24/17 10:35 Sodium Chloride IVPB 100 mls/hr Q24H [facility] Administration Protocol Metronidazole 250 mg in 50 mls @ 100 mls/hr 09/23/17 14:00 09/24/17 06:37 Flagyl IVPB 100 mls/hr Q8 [facility] Administration Protocol Octreotide Acetate 1,250 mcg/ 252.5 mls @ 5.05 mls/hr 09/23/17 16:30 17:25 Sodium Chloride SC 5.05 mls/hr .Q24H [facility] Administration Protocol 25 MCG/HR Pantoprazole Sodium 40 mg 09/23/17 16:15 09/24/17 04:15 Protonix Inj IVP 40 mg Q12H [facility] Administration Past Psychiatric History - Past Psychiatric History Previous Treatment History: None Pertinent Medical Hx (Current Medical&Sleep Prob, Allergies): Allergies Allergy/AdvReac Type Severity Reaction Status Date / Time No Known Allergies Allergy Verified 09/23/17 04:46 No Known Home Med 09/23/17 Review of Systems - Psychiatric Psychiatric: Abnormal Sleep Pattern, Anxiety, Irritability. absent: Hallucinations, Homicidal Ideation, Suicidal Ideation Mental Status Examination - Personal Presentation Personal Presentation: Looks stated age - Affect Affect: Constricted - Motor Activity Motor Activity: Calm - Reliability in Providing Information Reliability in Providing Information: Good - Speech Speech: Organized - Mood Mood: Anxious - Formal Thought Process Formal Thought Process: No Impairment - Cognitive Functions Orientation: Person, Place, Situation, Time Sensorium: Alert Attention/Concentration: Attentive Estimate of Intelligence: Average Judgement: Imparied, as evidence by: Poor judgement (wants to leave) Memory: Recent intact, as evidence by: Ability to recall events of the day, Remote intact, as evidenced by: Abilit to recall sig. life events - Risk Risk: Seizure, Withdrawal, Diminished functioning - Strength & Assets Inventory Strength & Assets Inventory: Cooperative - Limitations Limitations: Living alone DSM 5 DX - DSM 5 DSM 5 Diagnosis: Alcohol withdrawal Alcohol use d/o - severe - Recommended/Plan of Treatment Treatment Recommendations and Plan of Treatment: Ativan detox As needed medications Gabapentin for augmentation All risks, benefits and alternatives of medications, including no medications, discussed and the patient understood and agreed. Supportive therapy and psychoeducation [place] for abstinence CBT for relapse prevention Refer to rehab or IOP Attend self-help groups as well AK for smoking cessation and patch if needed 34 min
[2017-09-24] MEDS ORDERED: Multiple Vitamins Tab PO SCH (11:00)
--- NOTE | 2017-09-24 13:13 | CP.PCM.PN ---
<Katrina Ballard - Last Filed: 09/24/17 13:19> Subjective - Date & Time of Evaluation Date of Evaluation: 09/24/17 Time of Evaluation: 12:00 - Subjective Subjective: PGY4 GI Follow-up Pt seen and examined bedside state that he feels better does not want an endoscopy at this time tolerating diet ROS: 10 point ROS conducted neg other than above Objective - Vital Signs/Intake and Output Vital Signs (last 24 hours): Temp Pulse Resp BP Pulse Ox 99.6 F 103 H 20 124/62 96 09/24/17 00:05 09/24/17 01:00 09/24/17 00:05 09/24/17 10:35 09/24/17 00:05 - Medications Medications: Current Medications Folic Acid (Folic Acid) 1 mg PO DAILY [facility] Last Admin: 09/24/17 11:42 Dose: 1 mg Furosemide (Lasix) 20 mg IVP DAILY [facility] Last Admin: 09/24/17 10:35 Dose: 20 mg Ceftriaxone Sodium 1 gm/ (Sodium Chloride) 100 mls @ 100 mls/hr IVPB Q24H [place] PRN Reason: Protocol Last Admin: 09/24/17 10:35 Dose: 100 mls/hr Metronidazole (Flagyl) 250 mg in 50 mls @ 100 mls/hr IVPB Q8 [place] PRN Reason: Protocol Last Admin: 09/24/17 06:37 Dose: 100 mls/hr Octreotide Acetate 1,250 mcg/ (Sodium Chloride) 252.5 mls @ 5.05 mls/hr IV .Q24H [place]Y; 25 MCG/HR PRN Reason: Protocol Lorazepam (Ativan) 1 mg PO Q4H PRN PRN Reason: Symptoms of alcohol withdrawl Lorazepam (Ativan) 1 mg PO Q4H [place] PRN Reason: Taper Stop: 09/28/17 10:59 Last Admin: 09/24/17 11:42 Dose: 1 mg Multivitamins (Hexavitamin) 1 tab PO DAILY [facility] Last Admin: 09/24/17 11:42 Dose: 1 tab Pantoprazole Sodium (Protonix Inj) 40 mg IVP Q12H [place] Last Admin: 09/24/17 04:15 Dose: 40 mg Thiamine HCl (Vitamin B1 Tab) 100 mg PO DAILY [facility] Last Admin: 09/24/17 11:42 Dose: 100 mg Trazodone HCl (Desyrel) 50 mg PO HS [facility] - Labs Labs: 09/24/17 09:14 09/24/17 08:29 PT 22.9 SECONDS (9.7-12.2) H 09/24/17 08:29 INR 2.0 09/24/17 08:29 APTT 39 SECONDS (21-34) H 09/23/17 05:29 - Constitutional Appears: Well, No Acute Distress - Head Exam Head Exam: ATRAUMATIC, NORMOCEPHALIC - Eye Exam Eye Exam: Scleral icterus - ENT Exam ENT Exam: Mucous Membranes Moist, Normal Exam - Neck Exam Neck Exam: Normal Inspection - Respiratory Exam Respiratory Exam: Clear to Ausculation Bilateral, NORMAL BREATHING PATTERN. absent: Rales, Rhonchi, Wheezes, Respiratory Distress - Cardiovascular Exam Cardiovascular Exam: REGULAR RHYTHM, +S1, +S2 - GI/Abdominal Exam GI & Abdominal Exam: Soft, Normal Bowel Sounds. absent: Guarding, Rigid, Tenderness, Organomegaly - Extremities Exam Extremities Exam: absent: Joint Swelling, Pedal Edema - Neurological Exam Neurological Exam: Alert, Awake, Oriented x3 - Psychiatric Exam Psychiatric exam: Normal Affect, Normal Mood - Skin Skin Exam: Dry, Intact, Warm Additional comments: juandice Assessment and Plan - Assessment and Plan (Free Text) Assessment: Liam Haque is a 37M w/ hx of chronic ETOH use who presents for juandice. U/S revealed patent portal vein, fatty infiltrate Alcoholic hepatitis Juandice Anemia, hgb 6.7 Plan: -advance to full liquid -refused EGD for tomorrow, will reeval tomorrow -NPO after midnight, for possible EGD tomorrow -continue PPI BID -will hold on octreotide for now -no blood or melena, initial rectal was neg -transfuse if hgb < 7 or symptomatic -steroids not indicated in possible setting of GI bleed -monitor LFTs and INR -will continue to follow -advised ETOH cessation D/W Dr. Edwards <Breonna Edwards - Last Filed: 09/24/17 17:06> Objective - Vital Signs/Intake and Output Vital Signs (last 24 hours): Temp Pulse Resp BP Pulse Ox 98.2 F 118 H 18 124/62 97 09/24/17 08:10 09/24/17 08:10 09/24/17 08:10 09/24/17 10:35 09/24/17 08:10 Intake and Output: 09/24/17 09/24/17 06:59 18:59 Intake Total 730 Balance 730 - Labs Labs: 09/24/17 09:14 09/24/17 08:29 PT 22.9 SECONDS (9.7-12.2) H 09/24/17 08:29 INR 2.0 09/24/17 08:29 APTT 39 SECONDS (21-34) H 09/23/17 05:29 Attending/Attestation - Attestation I have personally seen and examined this patient.: Yes I have fully participated in the care of the patient.: Yes I have reviewed all pertinent clinical information, including history, physical exam and plan: Yes Notes (Text): 09/24/17 17:06 Patient seen with GI fellow. This is a 37 yr old M with alcohol dependance and chronic ETOH use who presents for new onset jaundice in setting of alcoholic hepatitis. GI consulted for GI bleeding. Patient denies melena, hematemesis and hematochezia. rectal exam with brown stool. DF 53. Had dried blood on lips and mouth. EGD on Monday. Continue PPI bid. Will send for hepatitis and autoimmune serologies. Transfuse if hgb < 7 or symptomatic. Steroids not indicated in possible setting of GI bleed. Monitor LFTs and INR. Will continue to follow and alcohol cessation advised
--- NOTE | 2017-09-24 14:24 | CP.PCM.PN ---
Subjective - Date & Time of Evaluation Date of Evaluation: 09/24/17 Time of Evaluation: 01:00 - Subjective Subjective: Patient requested to sign out against medical advise. Risks and dangers of leaving against medical advise was extensively discussed with the patient. Patient understood and insisted on leaving. AMA form sign with RN witness. Attending physician Dr. Ballard was notified. Objective - Vital Signs/Intake and Output Vital Signs (last 24 hours): Temp Pulse Resp BP Pulse Ox 99.6 F 103 H 20 124/62 96 09/24/17 00:05 09/24/17 01:00 09/24/17 00:05 09/24/17 10:35 09/24/17 00:05 - Labs Labs: 09/24/17 09:14 09/24/17 08:29 PT 22.9 SECONDS (9.7-12.2) H 09/24/17 08:29 INR 2.0 09/24/17 08:29 APTT 39 SECONDS (21-34) H 09/23/17 05:29
[2017-09-24 16:21] VITALS: PULSE 118; RESP 18; TEMP 98.2; O2SAT 97
[2017-09-26 08:56] LABS: CERULOPLASMIN 30 mg/dL (18-36)
== END 2017-09-24 13:44 | disposition left against medical advice (07) | DRG 557 ==
LOC: C.ER 04:29 → C.5S 06:38 → MERGE 06:38 → C.5S 18:20
PROVIDERS: ADMIT Internal Medicine Nephrology; ATTEND Internal Medicine Nephrology
DX: K70.10 Alcoholic hepatitis without ascites (principal); K72.90 Hepatic failure, unspecified without coma; K74.60 Unspecified cirrhosis of liver; K92.2 Gastrointestinal hemorrhage, unspecified; R16.1 Splenomegaly, not elsewhere classified; F10.239 Alcohol dependence with withdrawal, unspecified; D64.9 Anemia, unspecified; Z87.891 Personal history of nicotine dependence

== ENCOUNTER 2018-06-18 17:57 | Inpatient (IN) | payer SELFPAY ==
[2018-06-18] MEDS ORDERED: Dextrose 50% SYRINGE Inj (50 ml) IVP STA (18:00)
[2018-06-18 18:01] VITALS: BMI 32.8
[2018-06-18] MEDS ORDERED: Dextrose 50% SYRINGE Inj (50 ml) ONE (18:14)
[2018-06-18 18:16] LABS: VENOUS BLOOD GAS PCO2 53 mmHg (40-60); VENOUS BLOOD GAS PO2 41 mm/Hg (30-55); VENOUS BLOOD PH < 6.80 (7.32-7.43)
[2018-06-18 18:20] LABS: BASO # 0.1 K/uL (0.0-0.2); BASO % 0.9 % (0.0-2.0); EOS % 0.2 % (0.0-4.0); LYMPH # 1.2 K/uL (1.0-4.3); MEAN CORPUSCULAR HEMOGLOBIN 38.7 pg (27.0-31.0); MEAN CORPUSCULAR HGB CONC 29.7 g/dL (33.0-37.0); MEAN PLATELET VOLUME 8.3 fL (7.2-11.7); MONO # 1.9 K/uL (0.0-0.8); MONO % 15.8 % (0.0-10.0); NEUT # 8.9 K/uL (1.8-7.0); NEUT % 73.1 % (50.0-75.0); RBC 0.88 Mil/uL (4.40-5.90); RED CELL DISTRIBUTION WIDTH 19.2 % (11.5-14.5); WHITE BLOOD COUNT 12.2 K/uL (4.8-10.8)
--- NOTE | 2018-06-18 18:23 | C.PDOC ---
History Of Present Illness 38 y/o male,w/PMhx of liver cirrhosis,renal failure, and GI bleed, brought to ER by ambulance for evaluation s/p cardiac arrest. Per EMS, patient was in respiratory distress and hypoxia upon arrival to patient's home. EMS reports that he was struggling to breathe and they used BIPAP. However, the patient went into cardiac arrest as they were transferring him down the stairs of his home. Patient was intubated and given 2 epi and bicarb. ROSC occurred upon patient's arrival to ER. Patient has positive pulse and blood pressure. Time Seen by Provider: 06/18/18 18:05 Chief Complaint (Nursing): Cardiac Arrest History Per: EMS Circumstances: Brought To ED By EMS Medications Given Prior To MD Arrival: Yes: Epinephrine, Sodium Bicarb Past Medical History Reviewed: Historical Data, Nursing Documentation, Vital Signs Vital Signs: Last Vital Signs Temp 100.1 F H 06/18/18 18:01 Pulse 93 H 06/18/18 18:01 Resp 18 06/18/18 18:01 BP 170/145 H 06/18/18 18:01 Pulse Ox 96 06/18/18 18:01 - Medical History PMH: No Chronic Diseases Surgical History: No Surg Hx Family History: States: No Known Family Hx - Social History Hx Alcohol Use: Yes Hx Substance Use: No - Immunization History Hx Tetanus Toxoid Vaccination: Yes Hx Influenza Vaccination: No Hx Pneumococcal Vaccination: No Review Of Systems Review Of Systems: ROS cannot be obtained secondary to pt's inabilty to answer questions. Physical Exam - Physical Exam Appears: No Acute Distress Skin: Warm, Dry, Jaundice Head: Atraumatic, Normacephalic Eye(s): bilateral: Normal Inspection Nose: Normal Oral Mucosa: Moist Neck: Supple Chest: Symmetrical Cardiovascular: Rhythm Regular Respiratory: Decreased Breath Sounds (mild diminished breath sounds), No Rales, No Rhonchi, No Wheezing Gastrointestinal/Abdominal: Soft, No Tenderness, Distention (tympanic to percussion), No Guarding, No Rebound, Ascites (significant ascites) Extremity: Normal ROM, Swelling (anasarca) Neurological/Psych: Oriented x3 ED Course And Treatment O2 Sat by Pulse Oximetry: 96 (RA) Pulse Ox Interpretation: Normal Disposition Discussed With : Yoon Leal Doctor Will See Patient In The: Hospital Counseled Patient/Family Regarding: Studies Performed, Diagnosis - Disposition Disposition: HOSPITALIZED Disposition Time: 18:22 Condition: CRITICAL Forms: [facility] (Citizen Of [place]) - Clinical Impression Clinical Impression: Cardiac arrest - Scribe Statement The provider has reviewed the documentation as recorded by the Ramiroibe Adan Brooks Provider Attestation: All medical record entries made by the Scribe were at my direction and personally dictated by me. I have reviewed the chart and agree that the record accurately reflects my personal performance of the history, physical exam, medical decision making, and the department course for this patient. I have also personally directed, reviewed, and agree with the discharge instructions and disposition. Decision To Admit - Pt Status Changed To: Hospital Disposition Of: Inpatient - Admit Certification Admit to Inpatient:: After my assessment, the patient will require hospitalization for at least two midnights. This is because of the severity of symptoms shown, intensity of services needed, and/or the medical risk in this patient being treated as an outpatient. - InPatient: Physician Admission Certification:: post cardiac arrest - . Bed Request Type: ICU Patient Diagnosis: Cardiac arrest
[2018-06-18 18:27] LABS: HEMOGLOBIN 3.4 g/dL (12.0-18.0)
[2018-06-18 18:31] LABS: MEAN CELL VOLUME 130.3 fL (80.0-94.0); PLATELET COUNT 57 K/uL (130-400)
--- NOTE | 2018-06-18 18:38 | RAD ---
Date of service: 06/18/2018 HISTORY: chest pain COMPARISON: None available. FINDINGS: In situ ETT, tip of which lies approximately 2.1 cm above jl. LUNGS: Low lung volumes with crowded bronchovascular markings and bibasilar atelectasis. Right greater the than left. PLEURA: No significant pleural effusion identified, no pneumothorax apparent. CARDIOVASCULAR: No aortic atherosclerotic calcification present. Heart size upper limits of normal.. No pulmonary vascular congestion. OSSEOUS STRUCTURES: No significant abnormalities. VISUALIZED UPPER ABDOMEN: Normal. OTHER FINDINGS: None. IMPRESSION: In situ ETT as described. Low lung volumes with crowded bronchovascular markings and bibasilar atelectasis. Right greater the than left.
[2018-06-18 18:40] LABS: ALBUMIN 2.4 g/dL (3.5-5.0); BLOOD UREA NITROGEN 9 mg/dL (9-20); CALCIUM 7.4 mg/dl (8.6-10.4); GFR NON-AFRICAN AMERICAN > 60
[2018-06-18 18:41] LABS: ALB/GLOB RATIO 0.6 (1.0-2.1); ALT/SGPT 24 U/L (21-72); AST/SGOT 129 U/L (17-59); HDL CHOLESTEROL 41 mg/dL (30-70); LIPASE 160 U/L (23-300); PROTHROMBIN TIME 64.3 SECONDS (9.7-12.2)
[2018-06-18 18:42] LABS: INR 5.8
[2018-06-18 18:44] LABS: LDL CHOLESTEROL < 30 mg/dL (0-129)
[2018-06-18] MEDS ORDERED: Phytonadione 10 mg/ml Inj (Adult) IV STA (18:45)
[2018-06-18 18:47] LABS: B-TYPE NATRIURETIC PEPTIDE 1730 pg/mL (0-450)
[2018-06-18 18:51] LABS: BARBITURATES, UR NEGATIVE (NEGATIVE); BENZODIAZEPINES, UR NEGATIVE (NEGATIVE); OPIATES, UR NEGATIVE (NEGATIVE); PHENCYCLIDINE, UR NEGATIVE (NEGATIVE)
[2018-06-18 18:53] LABS: URINE BILIRUBIN 1+ (NEGATIVE); URINE BLOOD 1+ (NEGATIVE); URINE CLARITY Hazy (Clear); URINE COLOR Amber (YELLOW); URINE GLUCOSE (UA) NORMAL (Normal); URINE LEUKOCYTE ESTERASE NEG Leu/uL (Negative); URINE PROTEIN 1+ mg/dL (NEGATIVE)
[2018-06-18] MEDS ORDERED: Phytonadione 10 mg/ml Inj (Adult) ONE (19:01)
[2018-06-18 19:06] LABS: ARTERIAL BLOOD GAS HCO3 6.9 mmol/L (21-28); ARTERIAL BLOOD GAS HEMOGLOBIN 3.3 g/dL (11.7-17.4); ARTERIAL BLOOD GAS O2 SAT 101.9 % (95-98); ARTERIAL BLOOD GAS PCO2 30 mm/Hg (35-45); ARTERIAL BLOOD GAS PH 6.93 (7.35-7.45); ARTERIAL BLOOD GAS PO2 233 mm/Hg (80-100); ARTERIAL BLOOD GAS TCO2 7.2 mmol/L (22-28)
[2018-06-18] MEDS ORDERED: Sodium Bicarbonate (8.4%) 50 Meq Syringe IVP ONE (20:55)
[2018-06-18 21:07] LABS: BANDS 9 % (0-2); LYMPHOCYTE 14 % (20-40); MONOCYTE 9 % (0-10); MYELOCYTE 5 % (0-0); NEUTROPHIL 63 % (50-75); TOTAL CELLS COUNTED 100
[2018-06-18 21:08] LABS: ANISOCYTOSIS MODERATE; MICROCYTOSIS MODERATE; NUCLEATED RED BLOOD CELL 6 % (0-0); PLATELET ESTIMATE DECREASED (NORMAL); POIKILOCYTOSIS MODERATE
[2018-06-18 21:09] LABS: ACANTHOCYTES MODERATE; BURR CELLS MODERATE; HYPOCHROMIC MARKED; OVALOCYTES SLIGHT; POLYCHROMIC SLIGHT; TARGET CELLS SLIGHT; TEARDROP CELLS SLIGHT
[2018-06-18] MEDS ORDERED: Norepinephrine 16 MG in Sodium Chloride 0.9% 500 ML IV PRN (21:50)
--- NOTE | 2018-06-18 21:50 | CP.PCM.CON ---
History of Present Illness - History of Present Illness History of Present Illness: 38 y/o male with h/o alchohol abuse,liver disease brought to ER intubated.Patient had complained of difficulty breathing and 911 was ca lled.Patient was intubated by EMS for cardiac arrest.In ER patient with severe anemia Hb 3.4 with INR of 5.8,respiratory acidosis transferred to ICU after Ct scans patient with recurrent siezures,bleeding from mouth,NGT with coffee ground secretions Patient lives alone.Spoke to Uncle and patients frient.He has not left home in atleast 2 wks.Patient has been yellow for some time no further history available Review of Systems - Review of Systems Review of Systems: patient unresponsive,ho history available Past Patient History - Past Medical History & Family History Past Medical History?: No - Past Social History Smoking Status: Former Smoker Alcohol: > 2 Drinks/Day - HEMATOLOGICAL/ONCOLOGICAL Hx Blood Disorders: Yes Hx Cirrhosis: Yes Other/Comment: liver problems - MUSCULOSKELETAL/RHEUMATOLOGICAL Hx Musculoskeletal Disorders: Yes Hx Falls: Yes - PSYCHIATRIC Hx Substance Use: No - SURGICAL HISTORY Hx Surgeries: No - ANESTHESIA Hx Anesthesia: No Meds Allergies/Adverse Reactions: Allergies Allergy/AdvReac Type Severity Reaction Status Date / Time No Known Allergies Allergy Verified 06/18/18 18:00 - Medications Medications: Current Medications Norepinephrine Bitartrate 4 mg (/ Dextrose) 254 mls @ 15.24 mls/hr IV .[id number] PRN; Protocol PRN Reason: TITRATE PER MD ORDER Last Titration: 06/18/18 19:30 Dose: 30 mcg/min, 114.3 mls/hr Vasopressin 40 units/ Dextrose 40 mls @ 0.6 mls/hr IV .Q24H [facility]; Protocol Sodium Bicarbonate 150 meq/ (Dextrose) 1,150 mls @ 150 mls/hr IV .Q7H40M [facility] Piperacillin Sod/Tazobactam (Sod 3.375 gm/ Sodium Chloride) 100 mls @ 200 mls/hr IVPB Q6H [facility]; Protocol Physical Exam - Constitutional Additional comments: orally intubated,siezing,bloody discharge from mouth - Head Exam Head Exam: ATRAUMATIC, NORMOCEPHALIC - Eye Exam Eye Exam: Conjunctival injection, Scleral icterus - ENT Exam ENT Exam: Mucous Membranes Moist - Neck Exam Neck exam: Positive for: Normal Inspection - Respiratory Exam Additional comments: decreased breath sounds in bases - Cardiovascular Exam Cardiovascular Exam: REGULAR RHYTHM. absent: JVD - GI/Abdominal Exam GI & Abdominal Exam: Distended, Firm, Normal Bowel Sounds, Soft Additional comments: ascites + - Extremities Exam Additional comments: bilateral 3+ leg edema - Neurological Exam Additional comments: unresponsive to verbal or painful stimuli - Skin Skin Exam: Intact, Pallor Results - Vital Signs Recent Vital Signs: Last Vital Signs Temp 97.5 F L 06/18/18 21:15 Pulse 87 06/18/18 21:15 Resp 22 06/18/18 21:15 BP 76/23 L 06/18/18 21:15 Pulse Ox 96 06/18/18 18:44 - Labs Result Diagrams: 06/18/18 18:15 06/18/18 18:15 Labs: Laboratory Results - last 24 hr 06/18/18 06/18/18 06/18/18 18:10 18:15 18:15 WBC 12.2 H RBC 0.88 L Hgb 3.4 L* D Hct 11.5 L MCV 130.3 H D MCH 38.7 H MCHC 29.7 L RDW 19.2 H Plt Count 57 L MPV 8.3 Neut % (Auto) 73.1 Lymph % (Auto) 10.0 L [place] % (Auto) 15.8 H Eos % (Auto) 0.2 Baso % (Auto) 0.9 Neut # (Auto) 8.9 H Lymph # (Auto) 1.2 Sab[place] # (Auto) 1.9 H Eos # (Auto) 0.0 Baso # (Auto) 0.1 Neutrophils % (Manual) 63 Band Neutrophils % 9 H Lymphocytes % (Manual) 14 L Monocytes % (Manual) 9 Myelocytes % 5 H Nucleated RBC % 6 H Platelet Estimate Decreased L Polychromasia Slight Hypochromasia (manual) Marked Poikilocytosis (manual Moderate Anisocytosis (manual) Moderate Microcytosis (manual) Moderate Macrocytosis (manual) Moderate Target Cells Slight Tear Drop Cells Slight Ovalocytes Slight [place] Cells Moderate Acanthocytes (Spur) Moderate PT 64.3 H INR 5.8 H* APTT 97 H Puncture Site pCO2 pO2 41 HCO3 ABG pH ABG Total CO2 ABG O2 Saturation ABG Base Excess ABG Hemoglobin ABG Carboxyhemoglobin POC ABG HHb (Measured) ABG Methemoglobin Jorge Test VBG pH < 6.80 L* VBG pCO2 53 VBG O2 Sat (Calc) 52.9 VBG Potassium 4.2 A-a O2 Difference Respiratory Index Hgb O2 Saturation Sodium 134.0 Chloride 104.0 Glucose 64 L Lactate 18.7 H* Vent Mode Mechanical Rate FiO2 Tidal Volume PEEP Crit Value Called To Dr carrasco Crit Value Called By Edie rt Crit Value Read Back Y Blood Gas Notified Time 1815 Potassium Carbon Dioxide Anion Gap BUN Creatinine Est GFR ( Amer) Est GFR (Non-Af Amer) Random Glucose Calcium Phosphorus Magnesium Total Bilirubin AST ALT Alkaline Phosphatase Ammonia Troponin I NT-Pro-B Natriuret Pep Total Protein Albumin Globulin Albumin/Globulin Ratio Triglycerides Cholesterol LDL Cholesterol Direct HDL Cholesterol Lipase Venous Blood Potassium 4.2 Urine Color Urine Clarity Urine pH Ur Specific [place] Urine Protein Urine Glucose (UA) Urine Ketones Urine Blood Urine Nitrate Urine Bilirubin Urine Urobilinogen Ur Leukocyte Esterase Urine WBC (Auto) Urine RBC (Auto) Urine Opiates Screen Urine Methadone Screen Ur Barbiturates Screen Ur Phencyclidine Scrn Ur Amphetamines Screen U Benzodiazepines Scrn U Oth Cocaine Metabols U Cannabinoids Screen Blood Type Antibody Screen 06/18/18 06/18/18 06/18/18 18:15 18:15 18:15 WBC RBC Hgb Hct MCV MCH MCHC RDW Plt Count MPV Neut % (Auto) Lymph % (Auto) [place] % (Auto) Eos % (Auto) Baso % (Auto) Neut # (Auto) Lymph # (Auto) [place] # (Auto) Eos # (Auto) Baso # (Auto) Neutrophils % (Manual) Band Neutrophils % Lymphocytes % (Manual) Monocytes % (Manual) Myelocytes % Nucleated RBC % Platelet Estimate Polychromasia Hypochromasia (manual) Poikilocytosis (manual Anisocytosis (manual) Microcytosis (manual) Macrocytosis (manual) Target Cells Tear Drop Cells Ovalocytes Luis Cells Acanthocytes (Spur) PT INR APTT Puncture Site pCO2 pO2 HCO3 ABG pH ABG Total CO2 ABG O2 Saturation ABG Base Excess ABG Hemoglobin ABG Carboxyhemoglobin POC ABG HHb (Measured) ABG Methemoglobin Jorge Test VBG pH VBG pCO2 VBG O2 Sat (Calc) VBG Potassium A-a O2 Difference Respiratory Index Hgb O2 Saturation Sodium 132 Chloride 101 Glucose Lactate Vent Mode Mechanical Rate FiO2 Tidal Volume PEEP Crit Value Called To Crit Value Called By Crit Value Read Back Blood Gas Notified Time Potassium 4.5 Carbon Dioxide 7 L* D Anion Gap 28 H BUN 9 Creatinine 1.2 Est GFR ( Amer) > 60 Est GFR (Non-Af Amer) > 60 Random Glucose 63 L Calcium 7.4 L Phosphorus Magnesium Total Bilirubin 11.8 H AST 129 H ALT 24 Alkaline Phosphatase 76 Ammonia 235 H D Troponin I 0.0860 NT-Pro-B Natriuret Pep 1730 H Total Protein 6.3 Albumin 2.4 L D Globulin 3.9 Albumin/Globulin Ratio 0.6 L Triglycerides 92 Cholesterol 127 LDL Cholesterol Direct < 30 HDL Cholesterol 41 Lipase 160 Venous Blood Potassium Urine Color Urine Clarity Urine pH Ur Specific [place] Urine Protein Urine Glucose (UA) Urine Ketones Urine Blood Urine Nitrate Urine Bilirubin Urine Urobilinogen Ur Leukocyte Esterase Urine WBC (Auto) Urine RBC (Auto) Urine Opiates Screen Urine Methadone Screen Ur Barbiturates Screen Ur Phencyclidine Scrn Ur Amphetamines Screen U Benzodiazepines Scrn U Oth Cocaine Metabols U Cannabinoids Screen Blood Type B NEGATIVE Antibody Screen Negative 06/18/18 06/18/18 06/18/18 18:30 18:30 19:00 WBC RBC Hgb Hct MCV MCH MCHC RDW Plt Count MPV Neut % (Auto) Lymph % (Auto) [place] % (Auto) Eos % (Auto) Baso % (Auto) Neut # (Auto) Lymph # (Auto) [place] # (Auto) Eos # (Auto) Baso # (Auto) Neutrophils % (Manual) Band Neutrophils % Lymphocytes % (Manual) Monocytes % (Manual) Myelocytes % Nucleated RBC % Platelet Estimate Polychromasia Hypochromasia (manual) Poikilocytosis (manual Anisocytosis (manual) Microcytosis (manual) Macrocytosis (manual) Target Cells Tear Drop Cells Ovalocytes [place] Cells Acanthocytes (Spur) PT INR APTT Puncture Site Rba pCO2 30 L pO2 233 H HCO3 6.9 L* ABG pH 6.93 L* ABG Total CO2 7.2 L ABG O2 Saturation 101.9 H ABG Base Excess -23.2 L ABG Hemoglobin 3.3 L ABG Carboxyhemoglobin 5.2 H POC ABG HHb (Measured) -1.8 L ABG Methemoglobin 2.4 Jorge Test Na VBG pH VBG pCO2 VBG O2 Sat (Calc) VBG Potassium A-a O2 Difference 443.0 Respiratory Index 1.9 Hgb O2 Saturation 94.3 L Sodium Chloride Glucose Lactate Vent Mode Prvc Mechanical Rate 18 FiO2 100.0 Tidal Volume 550 PEEP 6 Crit Value Called To Er nurse vance Crit Value Called By Edie rt Crit Value Read Back Y Blood Gas Notified Time 190 Potassium Carbon Dioxide Anion Gap BUN Creatinine Est GFR ( Amer) Est GFR (Non-Af Amer) Random Glucose Calcium Phosphorus Magnesium Total Bilirubin AST ALT Alkaline Phosphatase Ammonia Troponin I NT-Pro-B Natriuret Pep Total Protein Albumin Globulin Albumin/Globulin Ratio Triglycerides Cholesterol LDL Cholesterol Direct HDL Cholesterol Lipase Venous Blood Potassium Urine Color Shahana Urine Clarity Hazy Urine pH 5.0 Ur Specific [place] 1.015 Urine Protein 1+ H Urine Glucose (UA) Normal Urine Ketones Negative Urine Blood 1+ H Urine Nitrate Negative Urine Bilirubin 1+ H Urine Urobilinogen 4.0 Ur Leukocyte Esterase Neg Urine WBC (Auto) < 1 Urine RBC (Auto) < 1 Urine Opiates Screen Negative Urine Methadone Screen Negative Ur Barbiturates Screen Negative Ur Phencyclidine Scrn Negative Ur Amphetamines Screen Negative U Benzodiazepines Scrn Negative U Oth Cocaine Metabols Negative U Cannabinoids Screen Negative Blood Type Antibody Screen 06/18/18 19:02 WBC RBC Hgb Hct MCV MCH MCHC RDW Plt Count MPV Neut % (Auto) Lymph % (Auto) [place] % (Auto) Eos % (Auto) Baso % (Auto) Neut # (Auto) Lymph # (Auto) [place] # (Auto) Eos # (Auto) Baso # (Auto) Neutrophils % (Manual) Band Neutrophils % Lymphocytes % (Manual) Monocytes % (Manual) Myelocytes % Nucleated RBC % Platelet Estimate Polychromasia Hypochromasia (manual) Poikilocytosis (manual Anisocytosis (manual) Microcytosis (manual) Macrocytosis (manual) Target Cells Tear Drop Cells Ovalocytes Luis Cells Acanthocytes (Spur) PT INR APTT Puncture Site pCO2 pO2 HCO3 ABG pH ABG Total CO2 ABG O2 Saturation ABG Base Excess ABG Hemoglobin ABG Carboxyhemoglobin POC ABG HHb (Measured) ABG Methemoglobin Jorge Test VBG pH VBG pCO2 VBG O2 Sat (Calc) VBG Potassium A-a O2 Difference Respiratory Index Hgb O2 Saturation Sodium Chloride Glucose Lactate Vent Mode Mechanical Rate FiO2 Tidal Volume PEEP Crit Value Called To Crit Value Called By Crit Value Read Back Blood Gas Notified Time Potassium Carbon Dioxide Anion Gap BUN Creatinine Est GFR ( Amer) Est GFR (Non-Af Amer) Random Glucose Calcium Phosphorus 8.8 H Magnesium 2.0 Total Bilirubin AST ALT Alkaline Phosphatase Ammonia Troponin I NT-Pro-B Natriuret Pep Total Protein Albumin Globulin Albumin/Globulin Ratio Triglycerides Cholesterol LDL Cholesterol Direct HDL Cholesterol Lipase Venous Blood Potassium Urine Color Urine Clarity Urine pH Ur Specific [place] Urine Protein Urine Glucose (UA) Urine Ketones Urine Blood Urine Nitrate Urine Bilirubin Urine Urobilinogen Ur Leukocyte Esterase Urine WBC (Auto) Urine RBC (Auto) Urine Opiates Screen Urine Methadone Screen Ur Barbiturates Screen Ur Phencyclidine Scrn Ur Amphetamines Screen U Benzodiazepines Scrn U Oth Cocaine Metabols U Cannabinoids Screen Blood Type Antibody Screen - EKG Data EKG Interpreted by: Myself - Imaging and Cardiology Chest x-ray Status: Image reviewed by me, Report reviewed by me CT scan - abdomen Status: Image reviewed by me, Report reviewed by me Assessment & Plan - Assessment and Plan (Free Text) Assessment: 1.Cardiopulmonary arrest/Hypotension/Severe acidosis continue Vent support pressors 2.Siezures-CT head done discussed with Neurologist.continue dilantin,start phenobarb 3.Pneumonia/r/o sepsis-Antibiotics 4.Liver disease/Coagulopathy,retroperitoneal bleed,severe anemia transfuse RBC,FFP condition Critical/Prognosis poor spoke to patients Uncle,friend ([facility]) and mother in [place] over the phone.aware of condition central line inserted as emergency
[2018-06-18] MEDS: Vasopressin 40 UNITS in Dextrose 5% In Water 38 ML IV SCH (21:54)
[2018-06-18] MEDS: Sodium Bicarbonate 8.4% 150 MEQ in Dextrose 5% In Water 1,000 ML IV SCH (22:10)
[2018-06-18] MEDS: Piperacillin/Tazobact 3.375 GM in Sodium Chloride 100 ML IVPB SCH (22:11)
[2018-06-18] MEDS ORDERED: PHENobarbital 1,000 MG in Sodium Chloride 0.9% 100 ML IV ONE (22:15)
[2018-06-18] MEDS ORDERED: Folic Acid 1 MG, Thiamine 100 MG, Multivitamin (MVI) 10 ML in Dextrose 5% In Water 1,00... IV SCH (22:30)
[2018-06-18] MEDS ORDERED: DOPamine 400mg/250ml D5W 400 MG/250 ML BAG IV ONE (22:33)
--- NOTE | 2018-06-18 22:34 | PCM.PROC ---
Procedures Attestation:: I certify that I have explained the specified Operation(s) or Procedure(s), risks, benefits and reasonable alternatives to the Patient and/or other person responsible. The opportunity was given to ask questions and all questions answered - Central Line Placement Right Femoral Aseptic technique was employed throughout the procedure: Full sterile barriers (mask, hair cover, sterile gown, sterile gloves), Full body sterile drape, Chloraprep Antiseptic: 2 minute prep for Femoral CVP Time Out Performed: Yes Pt. Placed on Pulse Ox Monitor: Yes Central Line Prep: Chlorhexidine-Alcohol Combination Local Anesthesia Used: Lidocaine 2% Amount of Anesthesia Used (mls): 5 Ultrasound Used for Placement: No Central Line Lumen Inserted: triple Post Procedure: Sutured in Place Secured by: Suture Post procedure dressing: Gauze Post Procedure X-Ray: No
[2018-06-18] MEDS ORDERED: Gentamicin 240 MG in Sodium Chloride 0.9% 100 ML IVPB STA (22:37)
[2018-06-18] MEDS ORDERED: Midazolam 50 mg/10 ml 100 MG in Dextrose 5% In Water 80 ML IV SCH (22:45)
[2018-06-18] MEDS: DOPamine 400mg/250ml D5W 400 MG/250 ML BAG IV PRN (22:46)
[2018-06-18] MEDS: Phenylephrine 30 MG in Sodium Chloride 0.9% 250 ML IV PRN (22:59)
[2018-06-18 23:27] LABS: BASO # 0.1 K/uL (0.0-0.2); BASO % 0.5 % (0.0-2.0); EOS # 0.1 K/uL (0.0-0.7); EOS % 0.6 % (0.0-4.0); LYMPH # 2.1 K/uL (1.0-4.3); LYMPH % 13.1 % (20.0-40.0); MEAN CELL VOLUME 109.4 fL (80.0-94.0); MEAN CORPUSCULAR HEMOGLOBIN 34.5 pg (27.0-31.0); MEAN CORPUSCULAR HGB CONC 31.6 g/dL (33.0-37.0); MEAN PLATELET VOLUME 11.1 fL (7.2-11.7); MONO # 1.9 K/uL (0.0-0.8); MONO % 12.2 % (0.0-10.0); NEUT # 11.7 K/uL (1.8-7.0); NEUT % 73.6 % (50.0-75.0); NRBC % 4.6 % (0.0-2.0); RBC 1.12 Mil/uL (4.40-5.90); RED CELL DISTRIBUTION WIDTH 25.5 % (11.5-14.5); WHITE BLOOD COUNT 15.9 K/uL (4.8-10.8)
[2018-06-18 23:29] LABS: HEMOGLOBIN 3.9 g/dL (12.0-18.0)
[2018-06-19 00:11] LABS: PROTHROMBIN TIME 97.9 SECONDS (9.7-12.2)
[2018-06-19 00:13] LABS: INR 8.9
[2018-06-19 00:26] LABS: ARTERIAL BLOOD GAS HCO3 3.6 mmol/L (21-28); ARTERIAL BLOOD GAS O2 SAT 99.5 % (95-98); ARTERIAL BLOOD GAS PCO2 31 mm/Hg (35-45); ARTERIAL BLOOD GAS PH 6.87 (7.35-7.45); ARTERIAL BLOOD GAS PO2 99 mm/Hg (80-100); ARTERIAL BLOOD GAS TCO2 6.7 mmol/L (22-28)
[2018-06-19] MEDS ORDERED: Sodium Bicarbonate (8.4%) 50 Meq Syringe IVP ONE ×5 (00:27→07:47)
[2018-06-19 01:00] LABS: BLOOD UREA NITROGEN 10 mg/dL (9-20); CALCIUM 6.5 mg/dl (8.6-10.4); GFR NON-AFRICAN AMERICAN 52
[2018-06-19] MEDS: DOPamine 400mg/250ml D5W 400 MG/250 ML BAG IV PRN ×5 (01:26→11:25)
[2018-06-19] MEDS: Phenylephrine 30 MG in Sodium Chloride 0.9% 250 ML IV PRN ×4 (01:53→11:28)
[2018-06-19 02:09] LABS: VENOUS BLOOD GAS PCO2 32 mmHg (40-60); VENOUS BLOOD GAS PO2 102 mm/Hg (30-55); VENOUS BLOOD PH 6.93 (7.32-7.43)
[2018-06-19] MEDS: Piperacillin/Tazobact 3.375 GM in Sodium Chloride 100 ML IVPB SCH (04:49)
[2018-06-19] MEDS: Vasopressin 40 UNITS in Dextrose 5% In Water 38 ML IV SCH (05:06)
[2018-06-19] MEDS: Sodium Bicarbonate 8.4% 150 MEQ in Dextrose 5% In Water 1,000 ML IV SCH (05:10)
[2018-06-19 05:18] LABS: BASO % 0.3 % (0.0-2.0); EOS % 0.5 % (0.0-4.0); LYMPH # 0.9 K/uL (1.0-4.3); LYMPH % 9.6 % (20.0-40.0); MEAN CELL VOLUME 101.7 fL (80.0-94.0); MEAN CORPUSCULAR HGB CONC 32.5 g/dL (33.0-37.0); MEAN PLATELET VOLUME 6.9 fL (7.2-11.7); MONO # 1.4 K/uL (0.0-0.8); MONO % 14.6 % (0.0-10.0); NEUT # 7.1 K/uL (1.8-7.0); NRBC % 6.3 % (0.0-2.0); PLATELET COUNT 44 K/uL (130-400); RBC 0.79 Mil/uL (4.40-5.90); RED CELL DISTRIBUTION WIDTH 17.4 % (11.5-14.5); WHITE BLOOD COUNT 9.4 K/uL (4.8-10.8)
[2018-06-19 05:21] LABS: HEMOGLOBIN 2.6 g/dL (12.0-18.0)
[2018-06-19 05:44] LABS: ALB/GLOB RATIO 0.7 (1.0-2.1); ALBUMIN 1.4 g/dL (3.5-5.0); CALCIUM 5.7 mg/dl (8.6-10.4)
[2018-06-19 05:50] LABS: ARTERIAL BLOOD GAS HCO3 3.2 mmol/L (21-28); ARTERIAL BLOOD GAS HEMOGLOBIN < 3.0 g/dL (11.7-17.4); ARTERIAL BLOOD GAS PCO2 31 mm/Hg (35-45); ARTERIAL BLOOD GAS PO2 45 mm/Hg (80-100); ARTERIAL BLOOD GAS TCO2 7.1 mmol/L (22-28)
[2018-06-19 05:59] LABS: PROTHROMBIN TIME 36.1 SECONDS (9.7-12.2)
[2018-06-19 06:00] LABS: INR 3.3
[2018-06-19] MEDS ORDERED: SODIUM CHLORIDE 0.9% IM SCH (06:00)
[2018-06-19] MEDS ORDERED: PHENOBARBITAL IM SCH (06:00)
[2018-06-19] MEDS ORDERED: Calcium Gluconate 4.65 mEq/10 ml Inj ONE (06:29)
--- NOTE | 2018-06-19 07:26 | CP.PCM.CON ---
History of Present Illness - History of Present Illness History of Present Illness: CONSULTATION DICTATED ANOXIC ENCEPHALOPATHY S/P STATUS EPILEPTICUS ON DPH AND PB WITH GIVEN MIDALZOM BOLUS - CLINICAL SZ CONTROLLED COMATOSED NO PHYSOLOGICAL REFLEXES OVER ALL PROGNOSIS - GRAVE EEG CONTINUE SUPPORTIVE CARE Past Patient History - Past Medical History & Family History Past Medical History?: Yes - Past Social History Smoking Status: Former Smoker Alcohol: > 2 Drinks/Day - HEMATOLOGICAL/ONCOLOGICAL Hx Blood Disorders: Yes Hx Cirrhosis: Yes Other/Comment: liver problems - INTEGUMENTARY Hx Dermatological Problems: No - MUSCULOSKELETAL/RHEUMATOLOGICAL Hx Musculoskeletal Disorders: Yes Hx Falls: Yes - GASTROINTESTINAL Hx Liver Failure: Yes - GENITOURINARY/GYNECOLOGICAL Hx Genitourinary Disorders: No - PSYCHIATRIC Hx Substance Use: No - SURGICAL HISTORY Hx Surgeries: No - ANESTHESIA Hx Anesthesia: No Meds Allergies/Adverse Reactions: Allergies Allergy/AdvReac Type Severity Reaction Status Date / Time No Known Allergies Allergy Verified 06/18/18 18:00 - Medications Medications: Current Medications Vasopressin 40 units/ Dextrose 40 mls @ 0.6 mls/hr IV .Q24H [facility]; Protocol Last Admin: 06/19/18 05:06 Dose: 0.04 units/min, 2.4 mls/hr Sodium Bicarbonate 150 meq/ (Dextrose) 1,150 mls @ 150 mls/hr IV .Q7H40M [facility] Last Admin: 06/19/18 05:10 Dose: 150 mls/hr Piperacillin Sod/Tazobactam (Sod 3.375 gm/ Sodium Chloride) 100 mls @ 200 mls/hr IVPB Q6H [facility]; Protocol Last Admin: 06/19/18 04:49 Dose: 200 mls/hr Norepinephrine Bitartrate 16 (mg/ Sodium Chloride) 516 mls @ 7.74 mls/hr IV .Q24H PRN; Protocol PRN Reason: TITRATE PER MD ORDER Last Admin: 06/18/18 22:07 Dose: 30 mcg/min, 58.05 mls/hr Phenytoin 100 mg/ Sodium (Chloride) 52 mls @ 240 mls/hr IVPB Q8H [facility] Last Admin: 06/19/18 04:51 Dose: 240 mls/hr Phenobarbital 90 mg/ Sodium (Chloride) 101.3846 mls @ 200 mls/hr IM Q8H [facility] Last Admin: 06/19/18 05:09 Dose: 200 mls/hr Folic Acid 1 mg/ Thiamine HCl 100 mg/ Multivitamins/Vitamin C 10 ml/ Dextrose 1,011.2 mls @ 40 mls/hr IV .Q24H [facility] Last Admin: 06/19/18 04:51 Dose: 40 mls/hr Dopamine HCl/Dextrose (Dopamine 400mg/250ml D5w) 400 mg in 250 mls @ 8.233 mls/hr IV .Q24H PRN; Protocol PRN Reason: TITRATE PER MD ORDER Last Admin: 06/19/18 05:22 Dose: 20 mcg/kg/min, 82.327 mls/hr Phenylephrine HCl 30 mg/ (Sodium Chloride) 253 mls @ 10.12 mls/hr IV .Q24H PRN; Protocol PRN Reason: TITRATE PER MD ORDER Last Admin: 06/19/18 05:11 Dose: 180 mcg/min, 91.08 mls/hr Midazolam HCl 100 mg/ Dextrose 100 mls @ 4.39 mls/hr IV .[id number] [facility]; Protocol Last Admin: 06/18/18 23:12 Dose: 0.04 mg/kg/hr, 4.39 mls/hr Calcium Gluconate 4.65 meq/ (Sodium Chloride) 110 mls @ 100 mls/hr IV ONCE ONE Stop: 06/19/18 07:26 Last Admin: 06/19/18 06:54 Dose: 100 mls/hr Calcium Gluconate 9.3 meq/ (Sodium Chloride) 120 mls @ 100 mls/hr IV ONCE ONE Stop: 06/19/18 07:54 Results - Vital Signs Recent Vital Signs: Last Vital Signs Temp 96 F L 06/19/18 06:40 Pulse 66 06/19/18 06:40 Resp 23 06/19/18 06:40 BP 119/78 06/19/18 06:40 Pulse Ox 100 06/19/18 01:26 - Labs Result Diagrams: 06/19/18 05:15 06/19/18 05:15 Labs: Laboratory Results - last 24 hr 06/18/18 06/18/18 06/18/18 18:10 18:15 18:15 WBC 12.2 H RBC 0.88 L Hgb 3.4 L* D Hct 11.5 L MCV 130.3 H D MCH 38.7 H MCHC 29.7 L RDW 19.2 H Plt Count 57 L MPV 8.3 Neut % (Auto) 73.1 Lymph % (Auto) 10.0 L [place] % (Auto) 15.8 H Eos % (Auto) 0.2 Baso % (Auto) 0.9 Neut # (Auto) 8.9 H Lymph # (Auto) 1.2 [place] # (Auto) 1.9 H Eos # (Auto) 0.0 Baso # (Auto) 0.1 Neutrophils % (Manual) 63 Band Neutrophils % 9 H Lymphocytes % (Manual) 14 L Monocytes % (Manual) 9 Myelocytes % 5 H Nucleated RBC % 6 H Platelet Estimate Decreased L Polychromasia Slight Hypochromasia (manual) Marked Poikilocytosis (manual Moderate Anisocytosis (manual) Moderate Microcytosis (manual) Moderate Macrocytosis (manual) Moderate Target Cells Slight Tear Drop Cells Slight Ovalocytes Slight [place] Cells Moderate Acanthocytes (Spur) Moderate PT 64.3 H INR 5.8 H* APTT 97 H Fibrinogen Puncture Site pCO2 pO2 41 HCO3 ABG pH ABG Total CO2 ABG O2 Saturation ABG Base Excess ABG Hemoglobin ABG Carboxyhemoglobin POC ABG HHb (Measured) ABG Methemoglobin Jorge Test ABG Potassium VBG pH < 6.80 L* VBG pCO2 53 VBG HCO3 VBG Total CO2 VBG O2 Sat (Calc) 52.9 VBG Base Excess VBG Potassium 4.2 A-a O2 Difference Respiratory Index Hgb O2 Saturation Sodium 134.0 Chloride 104.0 Glucose 64 L Lactate 18.7 H* Vent Mode Mechanical Rate FiO2 Tidal Volume PEEP Crit Value Called To Dr carrasco Crit Value Called By Edie rt Crit Value Read Back Y Blood Gas Notified Time 1815 Potassium Carbon Dioxide Anion Gap BUN Creatinine Est GFR ( Amer) Est GFR (Non-Af Amer) POC Glucose (mg/dL) Random Glucose Calcium Phosphorus Magnesium Total Bilirubin AST ALT Alkaline Phosphatase Ammonia Troponin I NT-Pro-B Natriuret Pep Total Protein Albumin Globulin Albumin/Globulin Ratio Triglycerides Cholesterol LDL Cholesterol Direct HDL Cholesterol Lipase Arterial Blood Potassium Venous Blood Potassium 4.2 Urine Color Urine Clarity Urine pH Ur Specific [place] Urine Protein Urine Glucose (UA) Urine Ketones Urine Blood Urine Nitrate Urine Bilirubin Urine Urobilinogen Ur Leukocyte Esterase Urine WBC (Auto) Urine RBC (Auto) Urine Opiates Screen Urine Methadone Screen Ur Barbiturates Screen Ur Phencyclidine Scrn Ur Amphetamines Screen U Benzodiazepines Scrn U Oth Cocaine Metabols U Cannabinoids Screen Blood Type Antibody Screen 06/18/18 06/18/18 06/18/18 18:15 18:15 18:15 WBC RBC Hgb Hct MCV MCH MCHC RDW Plt Count MPV Neut % (Auto) Lymph % (Auto) [place] % (Auto) Eos % (Auto) Baso % (Auto) Neut # (Auto) Lymph # (Auto) [place] # (Auto) Eos # (Auto) Baso # (Auto) Neutrophils % (Manual) Band Neutrophils % Lymphocytes % (Manual) Monocytes % (Manual) Myelocytes % Nucleated RBC % Platelet Estimate Polychromasia Hypochromasia (manual) Poikilocytosis (manual Anisocytosis (manual) Microcytosis (manual) Macrocytosis (manual) Target Cells Tear Drop Cells Ovalocytes [place] Cells Acanthocytes (Spur) PT INR APTT Fibrinogen Puncture Site pCO2 pO2 HCO3 ABG pH ABG Total CO2 ABG O2 Saturation ABG Base Excess ABG Hemoglobin ABG Carboxyhemoglobin POC ABG HHb (Measured) ABG Methemoglobin Jorge Test ABG Potassium VBG pH VBG pCO2 VBG HCO3 VBG Total CO2 VBG O2 Sat (Calc) VBG Base Excess VBG Potassium A-a O2 Difference Respiratory Index Hgb O2 Saturation Sodium 132 Chloride 101 Glucose Lactate Vent Mode Mechanical Rate FiO2 Tidal Volume PEEP Crit Value Called To Crit Value Called By Crit Value Read Back Blood Gas Notified Time Potassium 4.5 Carbon Dioxide 7 L* D Anion Gap 28 H BUN 9 Creatinine 1.2 Est GFR ( Amer) > 60 Est GFR (Non-Af Amer) > 60 POC Glucose (mg/dL) Random Glucose 63 L Calcium 7.4 L Phosphorus Magnesium Total Bilirubin 11.8 H AST 129 H ALT 24 Alkaline Phosphatase 76 Ammonia 235 H D Troponin I 0.0860 NT-Pro-B Natriuret Pep 1730 H Total Protein 6.3 Albumin 2.4 L D Globulin 3.9 Albumin/Globulin Ratio 0.6 L Triglycerides 92 Cholesterol 127 LDL Cholesterol Direct < 30 HDL Cholesterol 41 Lipase 160 Arterial Blood Potassium Venous Blood Potassium Urine Color Urine Clarity Urine pH Ur Specific [place] Urine Protein Urine Glucose (UA) Urine Ketones Urine Blood Urine Nitrate Urine Bilirubin Urine Urobilinogen Ur Leukocyte Esterase Urine WBC (Auto) Urine RBC (Auto) Urine Opiates Screen Urine Methadone Screen Ur Barbiturates Screen Ur Phencyclidine Scrn Ur Amphetamines Screen U Benzodiazepines Scrn U Oth Cocaine Metabols U Cannabinoids Screen Blood Type B NEGATIVE Antibody Screen Negative 06/18/18 06/18/18 06/18/18 18:29 18:30 18:30 WBC RBC Hgb Hct MCV MCH MCHC RDW Plt Count MPV Neut % (Auto) Lymph % (Auto) [place] % (Auto) Eos % (Auto) Baso % (Auto) Neut # (Auto) Lymph # (Auto) [place] # (Auto) Eos # (Auto) Baso # (Auto) Neutrophils % (Manual) Band Neutrophils % Lymphocytes % (Manual) Monocytes % (Manual) Myelocytes % Nucleated RBC % Platelet Estimate Polychromasia Hypochromasia (manual) Poikilocytosis (manual Anisocytosis (manual) Microcytosis (manual) Macrocytosis (manual) Target Cells Tear Drop Cells Ovalocytes Luis Cells Acanthocytes (Spur) PT INR APTT Fibrinogen Puncture Site pCO2 pO2 HCO3 ABG pH ABG Total CO2 ABG O2 Saturation ABG Base Excess ABG Hemoglobin ABG Carboxyhemoglobin POC ABG HHb (Measured) ABG Methemoglobin Jorge Test ABG Potassium VBG pH VBG pCO2 VBG HCO3 VBG Total CO2 VBG O2 Sat (Calc) VBG Base Excess VBG Potassium A-a O2 Difference Respiratory Index Hgb O2 Saturation Sodium Chloride Glucose Lactate Vent Mode Mechanical Rate FiO2 Tidal Volume PEEP Crit Value Called To Crit Value Called By Crit Value Read Back Blood Gas Notified Time Potassium Carbon Dioxide Anion Gap BUN Creatinine Est GFR ( Amer) Est GFR (Non-Af Amer) POC Glucose (mg/dL) 118 H Random Glucose Calcium Phosphorus Magnesium Total Bilirubin AST ALT Alkaline Phosphatase Ammonia Troponin I NT-Pro-B Natriuret Pep Total Protein Albumin Globulin Albumin/Globulin Ratio Triglycerides Cholesterol LDL Cholesterol Direct HDL Cholesterol Lipase Arterial Blood Potassium Venous Blood Potassium Urine Color Shahana Urine Clarity Hazy Urine pH 5.0 Ur Specific [place] 1.015 Urine Protein 1+ H Urine Glucose (UA) Normal Urine Ketones Negative Urine Blood 1+ H Urine Nitrate Negative Urine Bilirubin 1+ H Urine Urobilinogen 4.0 Ur Leukocyte Esterase Neg Urine WBC (Auto) < 1 Urine RBC (Auto) < 1 Urine Opiates Screen Negative Urine Methadone Screen Negative Ur Barbiturates Screen Negative Ur Phencyclidine Scrn Negative Ur Amphetamines Screen Negative U Benzodiazepines Scrn Negative U Oth Cocaine Metabols Negative U Cannabinoids Screen Negative Blood Type Antibody Screen 06/18/18 06/18/18 06/18/18 19:00 19:02 21:44 WBC RBC Hgb Hct MCV MCH MCHC RDW Plt Count MPV Neut % (Auto) Lymph % (Auto) [place] % (Auto) Eos % (Auto) Baso % (Auto) Neut # (Auto) Lymph # (Auto) [place] # (Auto) Eos # (Auto) Baso # (Auto) Neutrophils % (Manual) Band Neutrophils % Lymphocytes % (Manual) Monocytes % (Manual) Myelocytes % Nucleated RBC % Platelet Estimate Polychromasia Hypochromasia (manual) Poikilocytosis (manual Anisocytosis (manual) Microcytosis (manual) Macrocytosis (manual) Target Cells Tear Drop Cells Ovalocytes Luis Cells Acanthocytes (Spur) PT INR APTT Fibrinogen < 35 L Puncture Site Rba pCO2 30 L pO2 233 H HCO3 6.9 L* ABG pH 6.93 L* ABG Total CO2 7.2 L ABG O2 Saturation 101.9 H ABG Base Excess -23.2 L ABG Hemoglobin 3.3 L ABG Carboxyhemoglobin 5.2 H POC ABG HHb (Measured) -1.8 L ABG Methemoglobin 2.4 Jorge Test Na ABG Potassium VBG pH VBG pCO2 VBG HCO3 VBG Total CO2 VBG O2 Sat (Calc) VBG Base Excess VBG Potassium A-a O2 Difference 443.0 Respiratory Index 1.9 Hgb O2 Saturation 94.3 L Sodium Chloride Glucose Lactate Vent Mode Prvc Mechanical Rate 18 FiO2 100.0 Tidal Volume 550 PEEP 6 Crit Value Called To Er nurse vance Crit Value Called By Edie rt Crit Value Read Back Y Blood Gas Notified Time 1905 Potassium Carbon Dioxide Anion Gap BUN Creatinine Est GFR ( Amer) Est GFR (Non-Af Amer) POC Glucose (mg/dL) Random Glucose Calcium Phosphorus 8.8 H Magnesium 2.0 Total Bilirubin AST ALT Alkaline Phosphatase Ammonia Troponin I NT-Pro-B Natriuret Pep Total Protein Albumin Globulin Albumin/Globulin Ratio Triglycerides Cholesterol LDL Cholesterol Direct HDL Cholesterol Lipase Arterial Blood Potassium Venous Blood Potassium Urine Color Urine Clarity Urine pH Ur Specific [place] Urine Protein Urine Glucose (UA) Urine Ketones Urine Blood Urine Nitrate Urine Bilirubin Urine Urobilinogen Ur Leukocyte Esterase Urine WBC (Auto) Urine RBC (Auto) Urine Opiates Screen Urine Methadone Screen Ur Barbiturates Screen Ur Phencyclidine Scrn Ur Amphetamines Screen U Benzodiazepines Scrn U Oth Cocaine Metabols U Cannabinoids Screen Blood Type Antibody Screen 06/18/18 06/18/18 06/19/18 23:25 23:25 00:21 WBC 15.9 H RBC 1.12 L Hgb 3.9 L* Hct 12.3 L MCV 109.4 H D MCH 34.5 H MCHC 31.6 L RDW 25.5 H Plt Count 13 L* D MPV 11.1 Neut % (Auto) 73.6 Lymph % (Auto) 13.1 L [place] % (Auto) 12.2 H Eos % (Auto) 0.6 Baso % (Auto) 0.5 Neut # (Auto) 11.7 H Lymph # (Auto) 2.1 [place] # (Auto) 1.9 H Eos # (Auto) 0.1 Baso # (Auto) 0.1 Neutrophils % (Manual) Band Neutrophils % Lymphocytes % (Manual) Monocytes % (Manual) Myelocytes % Nucleated RBC % Platelet Estimate Polychromasia Hypochromasia (manual) Poikilocytosis (manual Anisocytosis (manual) Microcytosis (manual) Macrocytosis (manual) Target Cells Tear Drop Cells Ovalocytes Luis Cells Acanthocytes (Spur) PT 97.9 H D INR 8.9 H* D APTT 184 H* D Fibrinogen Puncture Site Lb pCO2 31 L pO2 99 HCO3 3.6 L* ABG pH 6.87 L* ABG Total CO2 6.7 L ABG O2 Saturation 99.5 H ABG Base Excess -27.1 L ABG Hemoglobin ABG Carboxyhemoglobin POC ABG HHb (Measured) ABG Methemoglobin Jorge Test Na ABG Potassium 5.2 VBG pH VBG pCO2 VBG HCO3 VBG Total CO2 VBG O2 Sat (Calc) VBG Base Excess VBG Potassium A-a O2 Difference 575.0 Respiratory Index 5.8 Hgb O2 Saturation Sodium 132.0 Chloride 102.0 Glucose 87 Lactate > 20.0 H* Vent Mode Prvc Mechanical Rate 20 FiO2 100.0 Tidal Volume 550 PEEP 5 Crit Value Called To Dr. reyna Crit Value Called By Sofía coupon manifest clerk Crit Value Read Back Y Blood Gas Notified Time 26 Potassium Carbon Dioxide Anion Gap BUN Creatinine Est GFR ( Amer) Est GFR (Non-Af Amer) POC Glucose (mg/dL) Random Glucose Calcium Phosphorus Magnesium Total Bilirubin AST ALT Alkaline Phosphatase Ammonia Troponin I NT-Pro-B Natriuret Pep Total Protein Albumin Globulin Albumin/Globulin Ratio Triglycerides Cholesterol LDL Cholesterol Direct HDL Cholesterol Lipase Arterial Blood Potassium 5.2 Venous Blood Potassium Urine Color Urine Clarity Urine pH Ur Specific [place] Urine Protein Urine Glucose (UA) Urine Ketones Urine Blood Urine Nitrate Urine Bilirubin Urine Urobilinogen Ur Leukocyte Esterase Urine WBC (Auto) Urine RBC (Auto) Urine Opiates Screen Urine Methadone Screen Ur Barbiturates Screen Ur Phencyclidine Scrn Ur Amphetamines Screen U Benzodiazepines Scrn U Oth Cocaine Metabols U Cannabinoids Screen Blood Type Antibody Screen 06/19/18 06/19/18 06/19/18 00:30 02:05 05:15 WBC 9.4 RBC 0.79 L Hgb 2.6 L* Hct 8.1 L MCV 101.7 H D MCH 33.0 H MCHC 32.5 L RDW 17.4 H Plt Count 44 L D MPV 6.9 L Neut % (Auto) 75.0 Lymph % (Auto) 9.6 L [place] % (Auto) 14.6 H Eos % (Auto) 0.5 Baso % (Auto) 0.3 Neut # (Auto) 7.1 H Lymph # (Auto) 0.9 L [place] # (Auto) 1.4 H Eos # (Auto) 0.0 Baso # (Auto) 0.0 Neutrophils % (Manual) Band Neutrophils % Lymphocytes % (Manual) Monocytes % (Manual) Myelocytes % Nucleated RBC % Platelet Estimate Polychromasia Hypochromasia (manual) Poikilocytosis (manual Anisocytosis (manual) Microcytosis (manual) Macrocytosis (manual) Target Cells Tear Drop Cells Ovalocytes [place] Cells Acanthocytes (Spur) PT INR APTT Fibrinogen Puncture Site pCO2 pO2 102 H HCO3 ABG pH ABG Total CO2 ABG O2 Saturation ABG Base Excess ABG Hemoglobin ABG Carboxyhemoglobin POC ABG HHb (Measured) ABG Methemoglobin Jorge Test ABG Potassium VBG pH 6.93 L* VBG pCO2 32 L VBG HCO3 5.3 VBG Total CO2 7.7 L VBG O2 Sat (Calc) 99.7 H VBG Base Excess -25.0 L VBG Potassium 5.1 A-a O2 Difference Respiratory Index Hgb O2 Saturation Sodium 133 132.0 Chloride 102 101.0 Glucose 145 H Lactate > 20.0 H* Vent Mode Mechanical Rate FiO2 100.0 Tidal Volume PEEP 5 Crit Value Called To Olamide rn Crit Value Called By Sofía coupon manifest clerk Crit Value Read Back Y Blood Gas Notified Time 209 Potassium 5.3 H Carbon Dioxide 6 L* Anion Gap 30 H BUN 10 Creatinine 1.5 Est GFR ( Amer) > 60 Est GFR (Non-Af Amer) 52 POC Glucose (mg/dL) Random Glucose 85 Calcium 6.5 L Phosphorus Magnesium Total Bilirubin AST ALT Alkaline Phosphatase Ammonia Troponin I NT-Pro-B Natriuret Pep Total Protein Albumin Globulin Albumin/Globulin Ratio Triglycerides Cholesterol LDL Cholesterol Direct HDL Cholesterol Lipase Arterial Blood Potassium Venous Blood Potassium 5.1 Urine Color Urine Clarity Urine pH Ur Specific [place] Urine Protein Urine Glucose (UA) Urine Ketones Urine Blood Urine Nitrate Urine Bilirubin Urine Urobilinogen Ur Leukocyte Esterase Urine WBC (Auto) Urine RBC (Auto) Urine Opiates Screen Urine Methadone Screen Ur Barbiturates Screen Ur Phencyclidine Scrn Ur Amphetamines Screen U Benzodiazepines Scrn U Oth Cocaine Metabols U Cannabinoids Screen Blood Type Antibody Screen 06/19/18 06/19/18 06/19/18 05:15 05:15 05:40 WBC RBC Hgb Hct MCV MCH MCHC RDW Plt Count MPV Neut % (Auto) Lymph % (Auto) [place] % (Auto) Eos % (Auto) Baso % (Auto) Neut # (Auto) Lymph # (Auto) [place] # (Auto) Eos # (Auto) Baso # (Auto) Neutrophils % (Manual) Band Neutrophils % Lymphocytes % (Manual) Monocytes % (Manual) Myelocytes % Nucleated RBC % Platelet Estimate Polychromasia Hypochromasia (manual) Poikilocytosis (manual Anisocytosis (manual) Microcytosis (manual) Macrocytosis (manual) Target Cells Tear Drop Cells Ovalocytes Luis Cells Acanthocytes (Spur) PT 36.1 H D INR 3.3 H* D APTT 156 H* D Fibrinogen Puncture Site Lb/rn pCO2 31 L pO2 45 L HCO3 3.2 L* ABG pH 6.90 L* ABG Total CO2 7.1 L ABG O2 Saturation ABG Base Excess -26.1 L ABG Hemoglobin < 3.0 L ABG Carboxyhemoglobin POC ABG HHb (Measured) ABG Methemoglobin Jorge Test Na ABG Potassium VBG pH VBG pCO2 VBG HCO3 VBG Total CO2 VBG O2 Sat (Calc) VBG Base Excess VBG Potassium A-a O2 Difference 629.0 Respiratory Index 14.0 Hgb O2 Saturation Sodium 134 Chloride 100 Glucose Lactate Vent Mode Prvc Mechanical Rate 24 FiO2 100.0 Tidal Volume 550 PEEP 5 Crit Value Called To Jack montgomery/rn Crit Value Called By Candelario doran/rt Crit Value Read Back Y Blood Gas Notified Time 555 Potassium 4.9 Carbon Dioxide 6 L* Anion Gap 33 H BUN 9 Creatinine 1.6 H Est GFR ( Amer) 58 Est GFR (Non-Af Amer) 48 POC Glucose (mg/dL) Random Glucose 117 H Calcium 5.7 L* Phosphorus 10.4 H Magnesium 2.0 Total Bilirubin 5.9 H AST 410 H D ALT 75 H D Alkaline Phosphatase 21 L D Ammonia Troponin I NT-Pro-B Natriuret Pep Total Protein 3.5 L Albumin 1.4 L D Globulin 2.0 L Albumin/Globulin Ratio 0.7 L Triglycerides Cholesterol LDL Cholesterol Direct HDL Cholesterol Lipase Arterial Blood Potassium Venous Blood Potassium Urine Color Urine Clarity Urine pH Ur Specific [place] Urine Protein Urine Glucose (UA) Urine Ketones Urine Blood Urine Nitrate Urine Bilirubin Urine Urobilinogen Ur Leukocyte Esterase Urine WBC (Auto) Urine RBC (Auto) Urine Opiates Screen Urine Methadone Screen Ur Barbiturates Screen Ur Phencyclidine Scrn Ur Amphetamines Screen U Benzodiazepines Scrn U Oth Cocaine Metabols U Cannabinoids Screen Blood Type Antibody Screen
[2018-06-19 07:52] VITALS: TEMP 96
--- NOTE | 2018-06-19 07:53 | CON ---
DATE: 06/18/2018 ATTENDING PHYSICIAN: Dawood Ballard MD LOCATION: The patient's room number ICU, bed 4. REASON FOR THE CONSULTATION Unresponsiveness. CHIEF COMPLAINT: The patient was brought in by EMS from home with a history of cardiac arrest at the scene. The patient was evaluated because of the unchanged mental status. I was called in to assess his unchanged mental status. HISTORY OF PRESENT ILLNESS: Mr. Liam Haque is a 38-year-old morbidly obese male with the significant medical history of alcohol-induced liver cirrhosis, renal failure, and GI bleed. The patient was found to be struggling breathing while he was at home. The patient was given BiPAP, however, the patient went into the cardiac arrest, transferring him to the hospital for further evaluation. The patient was intubated and given epinephrine and sodium bicarbonate the emergency room. The patient did have a CT of the head and brought into ICU for further management. PAST MEDICAL HISTORY: As stated above. ALLERGIES: NO KNOWN ALLERGIES. SOCIAL HISTORY: As per the documentation, no history of substance abuse and history of alcohol use. REVIEW OF SYSTEM: Twelve-point system is being reviewed, from neuro, change in mental status. MEDICATIONS: At present, he is getting IV fluids, dopamine, norepinephrine, thiamine supplements, phenytoin, and phenobarbital. The patient is also getting piperacillin. PHYSICAL EXAMINATION: VITAL SIGNS: Blood pressure 119/78 with mean artery pressure of 67, respiratory rate 23 on vent, temperature 96-degree Fahrenheit, and pulse rate is 66 sinus. GENERAL: The patient is on sedation. Deeply comatosed even though with noxious stimuli. Eyes are closed. Eyes are edematous, and both the extremities are also edematous and externally rotated. NEUROLOGIC EXAMINATION: The patient is deeply comatosed. Eyes are closed. On forcibly opening the eyelid, pupils are 6 mm, fixed, no ocular movements are noted, oculocephalic is negative. No facial asymmetry. All four extremities are flaccid. Areflexic. Plantars are mute. Sensory examination, not responds to pain. Coordination, gait deferred at this time. LABORATORY DATA: His workup CT of the head reviewed by me, no acute pathology. Blood workup: WBC 9.4, hemoglobin 2.6, hematocrit 8.1, platelets 44. PT 36.1, INR 33.3, PTT of 156. ABG: PH 6.90, pCO2 of 31, pO2 of 45 with oxygen saturation of 99%. Sodium 134, potassium 4.9 which is corrected from 5.3, chloride 100, bicarbonate 6, lactic acid high, GFR is 58, BUN 9, creatinine 1.6. Urine shows 1+ proteinuria. EKG sinus rhythm. CONCLUSION: Liam Haque is presenting with global anoxic encephalopathy, superimposed with status epilepticus, being uncontrolled with triple antiepileptic drugs at present. At present, the patient does not show any physiological reflexes even I do not see any respiration of event. The overall prognosis is grave. Continue the present management to support his vital functions. The patient can have electroencephalogram at the bedside to assess nonconvulsive status. The patient's condition has been discussed with machine operators also. Maykel Woodard MD
--- NOTE | 2018-06-19 07:54 | CP.CCUPN ---
<Delvin Justice - Last Filed: 06/19/18 12:22> CCU Subjective - Physician Review Subjective (Free Text): 06/19/18 07:52 Patient is unresponsive, pupils are fixed and dilated. Patient received 9 units of PRBC, 5 units of FFP, 10 units of cryoprecipitate, 1 unit of platelets, and 13 bags of bicarb since admission. CCU Objective - Vital Signs / Intake & Output Vital Signs (Last 4 hours): Vital Signs Temp Pulse Resp BP 06/19/18 07:50 96.0 F L 72 24 75/30 L 06/19/18 06:40 96 F L 66 23 119/78 06/19/18 06:30 96 F L 67 23 77/30 L 06/19/18 06:15 96.1 F L 73 24 71/32 L 06/19/18 06:00 96 F L 75 25 H 82/27 L 06/19/18 05:22 77/31 L 06/19/18 05:11 77/31 L 06/19/18 05:06 79/37 L 06/19/18 04:00 96.5 F L Intake and Output (Last 8hrs): Intake & Output 06/18/18 06/19/18 06/19/18 22:59 06:59 14:59 Intake Total 2966.0 7747.0 508.0 Output Total 5 Balance 2961.0 7747.0 508.0 Weight 110 kg 123.377 kg Intake: IV 54 1296 Intake, IV Amount 1986.0 3484.0 508.0 Left Antecubital 1250 500 100 Left Forearm 40 40 Right Distal Port 195.0 780.0 97.5 Right Distal Port Femoral 4.8 19.2 2.4 Right Medial Port Femoral 300 1200 150 Right Proximal Port 180 720 90 Right Proximal Port 56.2 224.8 28.1 Femoral Blood Product 926 2967 0 Apheresis Plts Acda Lr 310 Irr 2nd Unit [id number] Apheresis Rbc Cp2d As3 Lr 276 1st Unit [id number] Apheresis Rbc Cp2d As3 Lr 282 1st Unit [id number] Apheresis Rbc Cp2d As3 Lr 0 2nd Unit [id number] Red Blood Cells Cpd As1 325 Lr Unit [id number] Red Blood Cells Cpd As1 325 Lr Unit [id number] Red Blood Cells Cpd As1 325 Lr Unit [id number] Red Blood Cells Cpd As1 325 Lr Unit [id number] Red Blood Cells Cpd As1 325 Lr Unit [id number] Output: Urine 5 Urethral (Garcia) 5 Other: Voiding Method Indwelling Catheter # Bowel Movements 1 - Physical Exam Physical Exam Limitations: Positive for: Clinical Condition Head: Positive for: Atraumatic, Normocephalic Pupils: Positive for: Non-Reactive, Other (Fixed and dilated) Conjunctiva: Positive for: Icteric Nose (Internal): Positive for: Epistaxis Cardiovascular: Positive for: Regular Rate and Rhythm, Normal S1, S2 Abdomen: Positive for: Distention, Peritoneal Signs - Medications Active Medications: Active Medications Generic Name Dose Route Start Last Admin Trade Name Freq PRN Reason Stop Dose Admin Vasopressin 40 units/ Dextrose 40 mls @ 0.6 mls/hr 06/18/18 21:00 06/19/18 05:06 IV 0.04 units/min .Q24H LINDSEY 2.4 mls/hr Administration Protocol 0.01 UNITS/MIN Sodium Bicarbonate 150 meq/ 1,150 mls @ 150 mls/hr 06/18/18 21:15 06/19/18 05:10 Dextrose IV 150 mls/hr .[id number] LINDSEY Administration Piperacillin Sod/Tazobactam 100 mls @ 200 mls/hr 06/18/18 21:30 06/19/18 04:49 Sod 3.375 gm/ Sodium Chloride IVPB 200 mls/hr Q6H LINDSEY Administration Protocol Norepinephrine Bitartrate 16 516 mls @ 7.74 mls/hr 06/18/18 21:50 06/18/18 22:07 mg/ Sodium Chloride IV 30 mcg/min .Q24H PRN 58.05 mls/hr TITRATE PER MD ORDER Administration Protocol 4 MCG/MIN Phenytoin 100 mg/ Sodium 52 mls @ 240 mls/hr 06/19/18 05:00 06/19/18 04:51 Chloride IVPB 240 mls/hr Q8H LINDSEY Administration Phenobarbital 90 mg/ Sodium 101.3846 mls @ 200 mls/hr 06/19/18 06:00 06/19/18 05:09 Chloride IM 200 mls/hr Q8H LINDSEY Administration Folic Acid 1 mg/ Thiamine HCl 1,011.2 mls @ 40 mls/hr 06/18/18 22:30 06/19/18 04:51 100 mg/ Multivitamins/Vitamin IV 40 mls/hr C 10 ml/ Dextrose .Q24H LINDSEY Administration Dopamine HCl/Dextrose 400 mg in 250 mls @ 8.233 mls/hr 06/18/18 22:29 06/19/18 05:22 Dopamine 400mg/250ml D5w IV 20 mcg/kg/min .Q24H PRN 82.327 mls/hr TITRATE PER MD ORDER Administration Protocol 2 MCG/KG/MIN Phenylephrine HCl 30 mg/ 253 mls @ 10.12 mls/hr 06/18/18 22:34 06/19/18 05:11 Sodium Chloride IV 180 mcg/min .Q24H PRN 91.08 mls/hr TITRATE PER MD ORDER Administration Protocol 20 MCG/MIN Midazolam HCl 100 mg/ Dextrose 100 mls @ 4.39 mls/hr 06/18/18 22:45 06/18/18 23:12 IV 0.04 mg/kg/hr .[id number] LINDSEY 4.39 mls/hr Administration Protocol 0.04 MG/KG/HR Calcium Gluconate 9.3 meq/ 120 mls @ 100 mls/hr 06/19/18 06:49 Sodium Chloride IV 06/19/18 07:54 ONCE ONE Sodium Bicarbonate 100 meq 06/19/18 07:47 Sodium Bicarbonate (8.4%) 50 Meq Syringe IVP 06/19/18 07:48 ONCE ONE - Patient Studies Lab Studies: Lab Studies 06/19/18 06/19/18 06/19/18 Range/Units 05:40 05:15 05:15 WBC (4.8-10.8) K/uL RBC (4.40-5.90) Mil/uL Hgb (12.0-18.0) g/dL Hct (35.0-51.0) % MCV (80.0-94.0) fL MCH (27.0-31.0) pg MCHC (33.0-37.0) g/dL RDW (11.5-14.5) % Plt Count (130-400) K/uL MPV (7.2-11.7) fL Neut % (Auto) (50.0-75.0) % Lymph % (Auto) (20.0-40.0) % Hardy % (Auto) (0.0-10.0) % Eos % (Auto) (0.0-4.0) % Baso % (Auto) (0.0-2.0) % Neut # (Auto) (1.8-7.0) K/uL Lymph # (Auto) (1.0-4.3) K/uL Hardy # (Auto) (0.0-0.8) K/uL Eos # (Auto) (0.0-0.7) K/uL Baso # (Auto) (0.0-0.2) K/uL Neutrophils % (Manual) (50-75) % Band Neutrophils % (0-2) % Lymphocytes % (Manual) (20-40) % Monocytes % (Manual) (0-10) % Myelocytes % (0-0) % Nucleated RBC % (0-0) % Platelet Estimate (NORMAL) Polychromasia Hypochromasia (manual) Poikilocytosis (manual Anisocytosis (manual) Microcytosis (manual) Macrocytosis (manual) Target Cells Tear Drop Cells Ovalocytes Plush Cells Acanthocytes (Spur) PT 36.1 H D (9.7-12.2) SECONDS INR 3.3 H* D APTT 156 H* D (21-34) SECONDS Fibrinogen (200-400) mg/dL Puncture Site Lb/rn pCO2 31 L (35-45) mm/Hg pO2 45 L (30-55) mm/Hg HCO3 3.2 L* (21-28) mmol/L ABG pH 6.90 L* (7.35-7.45) ABG Total CO2 7.1 L (22-28) mmol/L ABG O2 Saturation (95-98) % ABG Base Excess -26.1 L (-2.0-3.0) mmol/L ABG Hemoglobin < 3.0 L (11.7-17.4) g/dL ABG Carboxyhemoglobin (0.5-1.5) % POC ABG HHb (Measured) (0.0-5.0) % ABG Methemoglobin (0.0-3.0) % Jorge Test Na ABG Potassium (3.6-5.2) mmol/L VBG pH (7.32-7.43) VBG pCO2 (40-60) mmHg VBG HCO3 mmol/L VBG Total CO2 (22-28) mmol/L VBG O2 Sat (Calc) (40-65) % VBG Base Excess (0.0-2.0) mmol/L VBG Potassium (3.6-5.2) mmol/L A-a O2 Difference 629.0 mm/Hg Respiratory Index 14.0 Hgb O2 Saturation (95.0-98.0) % Sodium 134 (132-148) mmol/l Chloride 100 (98-107) mmol/L Glucose (75-110) mg/dl Lactate (0.7-2.1) mmol/L Vent Mode Prvc Mechanical Rate 24 FiO2 100.0 % Tidal Volume 550 PEEP 5 Crit Value Called To Jack montgomery/rn Crit Value Called By Candelario doran/rt Crit Value Read Back Y Blood Gas Notified Time 555 Potassium 4.9 (3.6-5.2) mmol/L Carbon Dioxide 6 L* (22-30) mmol/L Anion Gap 33 H (10-20) BUN 9 (9-20) mg/dL Creatinine 1.6 H (0.8-1.5) mg/dL Est GFR ( Amer) 58 Est GFR (Non-Af Amer) 48 POC Glucose (mg/dL) (65-110) mg/dL Random Glucose 117 H (75-110) mg/dL Calcium 5.7 L* (8.6-10.4) mg/dl Phosphorus 10.4 H (2.5-4.5) mg/dL Magnesium 2.0 (1.6-2.3) mg/dL Total Bilirubin 5.9 H (0.2-1.3) mg/dL AST 410 H D (17-59) U/L ALT 75 H D (21-72) U/L Alkaline Phosphatase 21 L D (38-126) U/L Ammonia (9-33) umol/L Troponin I (0.00-0.120) ng/mL NT-Pro-B Natriuret Pep (0-450) pg/mL Total Protein 3.5 L (6.3-8.3) g/dL Albumin 1.4 L D (3.5-5.0) g/dL Globulin 2.0 L (2.2-3.9) gm/dL Albumin/Globulin Ratio 0.7 L (1.0-2.1) Triglycerides (0-149) mg/dL Cholesterol (0-199) mg/dL LDL Cholesterol Direct (0-129) mg/dL HDL Cholesterol (30-70) mg/dL Lipase (23-300) U/L Arterial Blood Potassium (3.6-5.2) mmol/L Venous Blood Potassium (3.6-5.2) mmol/L Urine Color (YELLOW) Urine Clarity (Clear) Urine pH (5.0-8.0) Ur Specific [place] (1.003-1.030) Urine Protein (NEGATIVE) mg/dL Urine Glucose (UA) (Normal) mg/dL Urine Ketones (NEGATIVE) mg/dL Urine Blood (NEGATIVE) Urine Nitrate (NEGATIVE) Urine Bilirubin (NEGATIVE) Urine Urobilinogen (0.2-1.0) mg/dL Ur Leukocyte Esterase (Negative) Ru/uL Urine WBC (Auto) (0-5) /hpf Urine RBC (Auto) (0-3) /hpf Urine Opiates Screen (NEGATIVE) Urine Methadone Screen (NEGATIVE) Ur Barbiturates Screen (NEGATIVE) Ur Phencyclidine Scrn (NEGATIVE) Ur Amphetamines Screen (NEGATIVE) U Benzodiazepines Scrn (NEGATIVE) U Oth Cocaine Metabols (NEGATIVE) U Cannabinoids Screen (NEGATIVE) Blood Type Antibody Screen 06/19/18 06/19/18 06/19/18 Range/Units 05:15 02:05 00:30 WBC 9.4 (4.8-10.8) K/uL RBC 0.79 L (4.40-5.90) Mil/uL Hgb 2.6 L* (12.0-18.0) g/dL Hct 8.1 L (35.0-51.0) % MCV 101.7 H D (80.0-94.0) fL MCH 33.0 H (27.0-31.0) pg MCHC 32.5 L (33.0-37.0) g/dL RDW 17.4 H (11.5-14.5) % Plt Count 44 L D (130-400) K/uL MPV 6.9 L (7.2-11.7) fL Neut % (Auto) 75.0 (50.0-75.0) % Lymph % (Auto) 9.6 L (20.0-40.0) % Hardy % (Auto) 14.6 H (0.0-10.0) % Eos % (Auto) 0.5 (0.0-4.0) % Baso % (Auto) 0.3 (0.0-2.0) % Neut # (Auto) 7.1 H (1.8-7.0) K/uL Lymph # (Auto) 0.9 L (1.0-4.3) K/uL Hardy # (Auto) 1.4 H (0.0-0.8) K/uL Eos # (Auto) 0.0 (0.0-0.7) K/uL Baso # (Auto) 0.0 (0.0-0.2) K/uL Neutrophils % (Manual) (50-75) % Band Neutrophils % (0-2) % Lymphocytes % (Manual) (20-40) % Monocytes % (Manual) (0-10) % Myelocytes % (0-0) % Nucleated RBC % (0-0) % Platelet Estimate (NORMAL) Polychromasia Hypochromasia (manual) Poikilocytosis (manual Anisocytosis (manual) Microcytosis (manual) Macrocytosis (manual) Target Cells Tear Drop Cells Ovalocytes Luis Cells Acanthocytes (Spur) PT (9.7-12.2) SECONDS INR APTT (21-34) SECONDS Fibrinogen (200-400) mg/dL Puncture Site pCO2 (35-45) mm/Hg pO2 102 H (30-55) mm/Hg HCO3 (21-28) mmol/L ABG pH (7.35-7.45) ABG Total CO2 (22-28) mmol/L ABG O2 Saturation (95-98) % ABG Base Excess (-2.0-3.0) mmol/L ABG Hemoglobin (11.7-17.4) g/dL ABG Carboxyhemoglobin (0.5-1.5) % POC ABG HHb (Measured) (0.0-5.0) % ABG Methemoglobin (0.0-3.0) % Jorge Test ABG Potassium (3.6-5.2) mmol/L VBG pH 6.93 L* (7.32-7.43) VBG pCO2 32 L (40-60) mmHg VBG HCO3 5.3 mmol/L VBG Total CO2 7.7 L (22-28) mmol/L VBG O2 Sat (Calc) 99.7 H (40-65) % VBG Base Excess -25.0 L (0.0-2.0) mmol/L VBG Potassium 5.1 (3.6-5.2) mmol/L A-a O2 Difference mm/Hg Respiratory Index Hgb O2 Saturation (95.0-98.0) % Sodium 132.0 133 (132-148) mmol/l Chloride 101.0 102 (98-107) mmol/L Glucose 145 H (75-110) mg/dl Lactate > 20.0 H* (0.7-2.1) mmol/L Vent Mode Mechanical Rate FiO2 100.0 % Tidal Volume PEEP 5 Crit Value Called To Olamide rn Crit Value Called By Sofía cemetery manager Crit Value Read Back Y Blood Gas Notified Time 209 Potassium 5.3 H (3.6-5.2) mmol/L Carbon Dioxide 6 L* (22-30) mmol/L Anion Gap 30 H (10-20) BUN 10 (9-20) mg/dL Creatinine 1.5 (0.8-1.5) mg/dL Est GFR ( Amer) > 60 Est GFR (Non-Af Amer) 52 POC Glucose (mg/dL) (65-110) mg/dL Random Glucose 85 (75-110) mg/dL Calcium 6.5 L (8.6-10.4) mg/dl Phosphorus (2.5-4.5) mg/dL Magnesium (1.6-2.3) mg/dL Total Bilirubin (0.2-1.3) mg/dL AST (17-59) U/L ALT (21-72) U/L Alkaline Phosphatase (38-126) U/L Ammonia (9-33) umol/L Troponin I (0.00-0.120) ng/mL NT-Pro-B Natriuret Pep (0-450) pg/mL Total Protein (6.3-8.3) g/dL Albumin (3.5-5.0) g/dL Globulin (2.2-3.9) gm/dL Albumin/Globulin Ratio (1.0-2.1) Triglycerides (0-149) mg/dL Cholesterol (0-199) mg/dL LDL Cholesterol Direct (0-129) mg/dL HDL Cholesterol (30-70) mg/dL Lipase (23-300) U/L Arterial Blood Potassium (3.6-5.2) mmol/L Venous Blood Potassium 5.1 (3.6-5.2) mmol/L Urine Color (YELLOW) Urine Clarity (Clear) Urine pH (5.0-8.0) Ur Specific [place] (1.003-1.030) Urine Protein (NEGATIVE) mg/dL Urine Glucose (UA) (Normal) mg/dL Urine Ketones (NEGATIVE) mg/dL Urine Blood (NEGATIVE) Urine Nitrate (NEGATIVE) Urine Bilirubin (NEGATIVE) Urine Urobilinogen (0.2-1.0) mg/dL Ur Leukocyte Esterase (Negative) Ru/uL Urine WBC (Auto) (0-5) /hpf Urine RBC (Auto) (0-3) /hpf Urine Opiates Screen (NEGATIVE) Urine Methadone Screen (NEGATIVE) Ur Barbiturates Screen (NEGATIVE) Ur Phencyclidine Scrn (NEGATIVE) Ur Amphetamines Screen (NEGATIVE) U Benzodiazepines Scrn (NEGATIVE) U Oth Cocaine Metabols (NEGATIVE) U Cannabinoids Screen (NEGATIVE) Blood Type Antibody Screen 06/19/18 06/18/18 06/18/18 Range/Units 00:21 23:25 23:25 WBC 15.9 H (4.8-10.8) K/uL RBC 1.12 L (4.40-5.90) Mil/uL Hgb 3.9 L* (12.0-18.0) g/dL Hct 12.3 L (35.0-51.0) % MCV 109.4 H D (80.0-94.0) fL MCH 34.5 H (27.0-31.0) pg MCHC 31.6 L (33.0-37.0) g/dL RDW 25.5 H (11.5-14.5) % Plt Count 13 L* D (130-400) K/uL MPV 11.1 (7.2-11.7) fL Neut % (Auto) 73.6 (50.0-75.0) % Lymph % (Auto) 13.1 L (20.0-40.0) % Hardy % (Auto) 12.2 H (0.0-10.0) % Eos % (Auto) 0.6 (0.0-4.0) % Baso % (Auto) 0.5 (0.0-2.0) % Neut # (Auto) 11.7 H (1.8-7.0) K/uL Lymph # (Auto) 2.1 (1.0-4.3) K/uL Hardy # (Auto) 1.9 H (0.0-0.8) K/uL Eos # (Auto) 0.1 (0.0-0.7) K/uL Baso # (Auto) 0.1 (0.0-0.2) K/uL Neutrophils % (Manual) (50-75) % Band Neutrophils % (0-2) % Lymphocytes % (Manual) (20-40) % Monocytes % (Manual) (0-10) % Myelocytes % (0-0) % Nucleated RBC % (0-0) % Platelet Estimate (NORMAL) Polychromasia Hypochromasia (manual) Poikilocytosis (manual Anisocytosis (manual) Microcytosis (manual) Macrocytosis (manual) Target Cells Tear Drop Cells Ovalocytes Luis Cells Acanthocytes (Spur) PT 97.9 H D (9.7-12.2) SECONDS INR 8.9 H* D APTT 184 H* D (21-34) SECONDS Fibrinogen (200-400) mg/dL Puncture Site Lb pCO2 31 L (35-45) mm/Hg pO2 99 (30-55) mm/Hg HCO3 3.6 L* (21-28) mmol/L ABG pH 6.87 L* (7.35-7.45) ABG Total CO2 6.7 L (22-28) mmol/L ABG O2 Saturation 99.5 H (95-98) % ABG Base Excess -27.1 L (-2.0-3.0) mmol/L ABG Hemoglobin (11.7-17.4) g/dL ABG Carboxyhemoglobin (0.5-1.5) % POC ABG HHb (Measured) (0.0-5.0) % ABG Methemoglobin (0.0-3.0) % Jorge Test Na ABG Potassium 5.2 (3.6-5.2) mmol/L VBG pH (7.32-7.43) VBG pCO2 (40-60) mmHg VBG HCO3 mmol/L VBG Total CO2 (22-28) mmol/L VBG O2 Sat (Calc) (40-65) % VBG Base Excess (0.0-2.0) mmol/L VBG Potassium (3.6-5.2) mmol/L A-a O2 Difference 575.0 mm/Hg Respiratory Index 5.8 Hgb O2 Saturation (95.0-98.0) % Sodium 132.0 (132-148) mmol/l Chloride 102.0 (98-107) mmol/L Glucose 87 (75-110) mg/dl Lactate > 20.0 H* (0.7-2.1) mmol/L Vent Mode Prvc Mechanical Rate 20 FiO2 100.0 % Tidal Volume 550 PEEP 5 Crit Value Called To Dr. reyna Crit Value Called By Sofía cemetery manager Crit Value Read Back Y Blood Gas Notified Time 26 Potassium (3.6-5.2) mmol/L Carbon Dioxide (22-30) mmol/L Anion Gap (10-20) BUN (9-20) mg/dL Creatinine (0.8-1.5) mg/dL Est GFR ( Amer) Est GFR (Non-Af Amer) POC Glucose (mg/dL) (65-110) mg/dL Random Glucose (75-110) mg/dL Calcium (8.6-10.4) mg/dl Phosphorus (2.5-4.5) mg/dL Magnesium (1.6-2.3) mg/dL Total Bilirubin (0.2-1.3) mg/dL AST (17-59) U/L ALT (21-72) U/L Alkaline Phosphatase (38-126) U/L Ammonia (9-33) umol/L Troponin I (0.00-0.120) ng/mL NT-Pro-B Natriuret Pep (0-450) pg/mL Total Protein (6.3-8.3) g/dL Albumin (3.5-5.0) g/dL Globulin (2.2-3.9) gm/dL Albumin/Globulin Ratio (1.0-2.1) Triglycerides (0-149) mg/dL Cholesterol (0-199) mg/dL LDL Cholesterol Direct (0-129) mg/dL HDL Cholesterol (30-70) mg/dL Lipase (23-300) U/L Arterial Blood Potassium 5.2 (3.6-5.2) mmol/L Venous Blood Potassium (3.6-5.2) mmol/L Urine Color (YELLOW) Urine Clarity (Clear) Urine pH (5.0-8.0) Ur Specific [place] (1.003-1.030) Urine Protein (NEGATIVE) mg/dL Urine Glucose (UA) (Normal) mg/dL Urine Ketones (NEGATIVE) mg/dL Urine Blood (NEGATIVE) Urine Nitrate (NEGATIVE) Urine Bilirubin (NEGATIVE) Urine Urobilinogen (0.2-1.0) mg/dL Ur Leukocyte Esterase (Negative) Ru/uL Urine WBC (Auto) (0-5) /hpf Urine RBC (Auto) (0-3) /hpf Urine Opiates Screen (NEGATIVE) Urine Methadone Screen (NEGATIVE) Ur Barbiturates Screen (NEGATIVE) Ur Phencyclidine Scrn (NEGATIVE) Ur Amphetamines Screen (NEGATIVE) U Benzodiazepines Scrn (NEGATIVE) U Oth Cocaine Metabols (NEGATIVE) U Cannabinoids Screen (NEGATIVE) Blood Type Antibody Screen 06/18/18 06/18/18 06/18/18 Range/Units 21:44 19:02 19:00 WBC (4.8-10.8) K/uL RBC (4.40-5.90) Mil/uL Hgb (12.0-18.0) g/dL Hct (35.0-51.0) % MCV (80.0-94.0) fL MCH (27.0-31.0) pg MCHC (33.0-37.0) g/dL RDW (11.5-14.5) % Plt Count (130-400) K/uL MPV (7.2-11.7) fL Neut % (Auto) (50.0-75.0) % Lymph % (Auto) (20.0-40.0) % Hardy % (Auto) (0.0-10.0) % Eos % (Auto) (0.0-4.0) % Baso % (Auto) (0.0-2.0) % Neut # (Auto) (1.8-7.0) K/uL Lymph # (Auto) (1.0-4.3) K/uL Hardy # (Auto) (0.0-0.8) K/uL Eos # (Auto) (0.0-0.7) K/uL Baso # (Auto) (0.0-0.2) K/uL Neutrophils % (Manual) (50-75) % Band Neutrophils % (0-2) % Lymphocytes % (Manual) (20-40) % Monocytes % (Manual) (0-10) % Myelocytes % (0-0) % Nucleated RBC % (0-0) % Platelet Estimate (NORMAL) Polychromasia Hypochromasia (manual) Poikilocytosis (manual Anisocytosis (manual) Microcytosis (manual) Macrocytosis (manual) Target Cells Tear Drop Cells Ovalocytes Plush Cells Acanthocytes (Spur) PT (9.7-12.2) SECONDS INR APTT (21-34) SECONDS Fibrinogen < 35 L (200-400) mg/dL Puncture Site Rba pCO2 30 L (35-45) mm/Hg pO2 233 H (30-55) mm/Hg HCO3 6.9 L* (21-28) mmol/L ABG pH 6.93 L* (7.35-7.45) ABG Total CO2 7.2 L (22-28) mmol/L ABG O2 Saturation 101.9 H (95-98) % ABG Base Excess -23.2 L (-2.0-3.0) mmol/L ABG Hemoglobin 3.3 L (11.7-17.4) g/dL ABG Carboxyhemoglobin 5.2 H (0.5-1.5) % POC ABG HHb (Measured) -1.8 L (0.0-5.0) % ABG Methemoglobin 2.4 (0.0-3.0) % Jorge Test Na ABG Potassium (3.6-5.2) mmol/L VBG pH (7.32-7.43) VBG pCO2 (40-60) mmHg VBG HCO3 mmol/L VBG Total CO2 (22-28) mmol/L VBG O2 Sat (Calc) (40-65) % VBG Base Excess (0.0-2.0) mmol/L VBG Potassium (3.6-5.2) mmol/L A-a O2 Difference 443.0 mm/Hg Respiratory Index 1.9 Hgb O2 Saturation 94.3 L (95.0-98.0) % Sodium (132-148) mmol/l Chloride (98-107) mmol/L Glucose (75-110) mg/dl Lactate (0.7-2.1) mmol/L Vent Mode Prvc Mechanical Rate 18 FiO2 100.0 % Tidal Volume 550 PEEP 6 Crit Value Called To Er nurse vance Crit Value Called By Edie rt Crit Value Read Back Y Blood Gas Notified Time 190 Potassium (3.6-5.2) mmol/L Carbon Dioxide (22-30) mmol/L Anion Gap (10-20) BUN (9-20) mg/dL Creatinine (0.8-1.5) mg/dL Est GFR ( Amer) Est GFR (Non-Af Amer) POC Glucose (mg/dL) (65-110) mg/dL Random Glucose (75-110) mg/dL Calcium (8.6-10.4) mg/dl Phosphorus 8.8 H (2.5-4.5) mg/dL Magnesium 2.0 (1.6-2.3) mg/dL Total Bilirubin (0.2-1.3) mg/dL AST (17-59) U/L ALT (21-72) U/L Alkaline Phosphatase (38-126) U/L Ammonia (9-33) umol/L Troponin I (0.00-0.120) ng/mL NT-Pro-B Natriuret Pep (0-450) pg/mL Total Protein (6.3-8.3) g/dL Albumin (3.5-5.0) g/dL Globulin (2.2-3.9) gm/dL Albumin/Globulin Ratio (1.0-2.1) Triglycerides (0-149) mg/dL Cholesterol (0-199) mg/dL LDL Cholesterol Direct (0-129) mg/dL HDL Cholesterol (30-70) mg/dL Lipase (23-300) U/L Arterial Blood Potassium (3.6-5.2) mmol/L Venous Blood Potassium (3.6-5.2) mmol/L Urine Color (YELLOW) Urine Clarity (Clear) Urine pH (5.0-8.0) Ur Specific [place] (1.003-1.030) Urine Protein (NEGATIVE) mg/dL Urine Glucose (UA) (Normal) mg/dL Urine Ketones (NEGATIVE) mg/dL Urine Blood (NEGATIVE) Urine Nitrate (NEGATIVE) Urine Bilirubin (NEGATIVE) Urine Urobilinogen (0.2-1.0) mg/dL Ur Leukocyte Esterase (Negative) Ru/uL Urine WBC (Auto) (0-5) /hpf Urine RBC (Auto) (0-3) /hpf Urine Opiates Screen (NEGATIVE) Urine Methadone Screen (NEGATIVE) Ur Barbiturates Screen (NEGATIVE) Ur Phencyclidine Scrn (NEGATIVE) Ur Amphetamines Screen (NEGATIVE) U Benzodiazepines Scrn (NEGATIVE) U Oth Cocaine Metabols (NEGATIVE) U Cannabinoids Screen (NEGATIVE) Blood Type Antibody Screen 06/18/18 06/18/18 06/18/18 Range/Units 18:30 18:30 18:29 WBC (4.8-10.8) K/uL RBC (4.40-5.90) Mil/uL Hgb (12.0-18.0) g/dL Hct (35.0-51.0) % MCV (80.0-94.0) fL MCH (27.0-31.0) pg MCHC (33.0-37.0) g/dL RDW (11.5-14.5) % Plt Count (130-400) K/uL MPV (7.2-11.7) fL Neut % (Auto) (50.0-75.0) % Lymph % (Auto) (20.0-40.0) % Hardy % (Auto) (0.0-10.0) % Eos % (Auto) (0.0-4.0) % Baso % (Auto) (0.0-2.0) % Neut # (Auto) (1.8-7.0) K/uL Lymph # (Auto) (1.0-4.3) K/uL Hardy # (Auto) (0.0-0.8) K/uL Eos # (Auto) (0.0-0.7) K/uL Baso # (Auto) (0.0-0.2) K/uL Neutrophils % (Manual) (50-75) % Band Neutrophils % (0-2) % Lymphocytes % (Manual) (20-40) % Monocytes % (Manual) (0-10) % Myelocytes % (0-0) % Nucleated RBC % (0-0) % Platelet Estimate (NORMAL) Polychromasia Hypochromasia (manual) Poikilocytosis (manual Anisocytosis (manual) Microcytosis (manual) Macrocytosis (manual) Target Cells Tear Drop Cells Ovalocytes Plush Cells Acanthocytes (Spur) PT (9.7-12.2) SECONDS INR APTT (21-34) SECONDS Fibrinogen (200-400) mg/dL Puncture Site pCO2 (35-45) mm/Hg pO2 (30-55) mm/Hg HCO3 (21-28) mmol/L ABG pH (7.35-7.45) ABG Total CO2 (22-28) mmol/L ABG O2 Saturation (95-98) % ABG Base Excess (-2.0-3.0) mmol/L ABG Hemoglobin (11.7-17.4) g/dL ABG Carboxyhemoglobin (0.5-1.5) % POC ABG HHb (Measured) (0.0-5.0) % ABG Methemoglobin (0.0-3.0) % Jorge Test ABG Potassium (3.6-5.2) mmol/L VBG pH (7.32-7.43) VBG pCO2 (40-60) mmHg VBG HCO3 mmol/L VBG Total CO2 (22-28) mmol/L VBG O2 Sat (Calc) (40-65) % VBG Base Excess (0.0-2.0) mmol/L VBG Potassium (3.6-5.2) mmol/L A-a O2 Difference mm/Hg Respiratory Index Hgb O2 Saturation (95.0-98.0) % Sodium (132-148) mmol/l Chloride (98-107) mmol/L Glucose (75-110) mg/dl Lactate (0.7-2.1) mmol/L Vent Mode Mechanical Rate FiO2 % Tidal Volume PEEP Crit Value Called To Crit Value Called By Crit Value Read Back Blood Gas Notified Time Potassium (3.6-5.2) mmol/L Carbon Dioxide (22-30) mmol/L Anion Gap (10-20) BUN (9-20) mg/dL Creatinine (0.8-1.5) mg/dL Est GFR ( Amer) Est GFR (Non-Af Amer) POC Glucose (mg/dL) 118 H (65-110) mg/dL Random Glucose (75-110) mg/dL Calcium (8.6-10.4) mg/dl Phosphorus (2.5-4.5) mg/dL Magnesium (1.6-2.3) mg/dL Total Bilirubin (0.2-1.3) mg/dL AST (17-59) U/L ALT (21-72) U/L Alkaline Phosphatase (38-126) U/L Ammonia (9-33) umol/L Troponin I (0.00-0.120) ng/mL NT-Pro-B Natriuret Pep (0-450) pg/mL Total Protein (6.3-8.3) g/dL Albumin (3.5-5.0) g/dL Globulin (2.2-3.9) gm/dL Albumin/Globulin Ratio (1.0-2.1) Triglycerides (0-149) mg/dL Cholesterol (0-199) mg/dL LDL Cholesterol Direct (0-129) mg/dL HDL Cholesterol (30-70) mg/dL Lipase (23-300) U/L Arterial Blood Potassium (3.6-5.2) mmol/L Venous Blood Potassium (3.6-5.2) mmol/L Urine Color Shahana (YELLOW) Urine Clarity Hazy (Clear) Urine pH 5.0 (5.0-8.0) Ur Specific [place] 1.015 (1.003-1.030) Urine Protein 1+ H (NEGATIVE) mg/dL Urine Glucose (UA) Normal (Normal) mg/dL Urine Ketones Negative (NEGATIVE) mg/dL Urine Blood 1+ H (NEGATIVE) Urine Nitrate Negative (NEGATIVE) Urine Bilirubin 1+ H (NEGATIVE) Urine Urobilinogen 4.0 (0.2-1.0) mg/dL Ur Leukocyte Esterase Neg (Negative) Ru/uL Urine WBC (Auto) < 1 (0-5) /hpf Urine RBC (Auto) < 1 (0-3) /hpf Urine Opiates Screen Negative (NEGATIVE) Urine Methadone Screen Negative (NEGATIVE) Ur Barbiturates Screen Negative (NEGATIVE) Ur Phencyclidine Scrn Negative (NEGATIVE) Ur Amphetamines Screen Negative (NEGATIVE) U Benzodiazepines Scrn Negative (NEGATIVE) U Oth Cocaine Metabols Negative (NEGATIVE) U Cannabinoids Screen Negative (NEGATIVE) Blood Type Antibody Screen 06/18/18 06/18/18 06/18/18 Range/Units 18:15 18:15 18:15 WBC (4.8-10.8) K/uL RBC (4.40-5.90) Mil/uL Hgb (12.0-18.0) g/dL Hct (35.0-51.0) % MCV (80.0-94.0) fL MCH (27.0-31.0) pg MCHC (33.0-37.0) g/dL RDW (11.5-14.5) % Plt Count (130-400) K/uL MPV (7.2-11.7) fL Neut % (Auto) (50.0-75.0) % Lymph % (Auto) (20.0-40.0) % Hardy % (Auto) (0.0-10.0) % Eos % (Auto) (0.0-4.0) % Baso % (Auto) (0.0-2.0) % Neut # (Auto) (1.8-7.0) K/uL Lymph # (Auto) (1.0-4.3) K/uL Hardy # (Auto) (0.0-0.8) K/uL Eos # (Auto) (0.0-0.7) K/uL Baso # (Auto) (0.0-0.2) K/uL Neutrophils % (Manual) (50-75) % Band Neutrophils % (0-2) % Lymphocytes % (Manual) (20-40) % Monocytes % (Manual) (0-10) % Myelocytes % (0-0) % Nucleated RBC % (0-0) % Platelet Estimate (NORMAL) Polychromasia Hypochromasia (manual) Poikilocytosis (manual Anisocytosis (manual) Microcytosis (manual) Macrocytosis (manual) Target Cells Tear Drop Cells Ovalocytes Plush Cells Acanthocytes (Spur) PT (9.7-12.2) SECONDS INR APTT (21-34) SECONDS Fibrinogen (200-400) mg/dL Puncture Site pCO2 (35-45) mm/Hg pO2 (30-55) mm/Hg HCO3 (21-28) mmol/L ABG pH (7.35-7.45) ABG Total CO2 (22-28) mmol/L ABG O2 Saturation (95-98) % ABG Base Excess (-2.0-3.0) mmol/L ABG Hemoglobin (11.7-17.4) g/dL ABG Carboxyhemoglobin (0.5-1.5) % POC ABG HHb (Measured) (0.0-5.0) % ABG Methemoglobin (0.0-3.0) % Jorge Test ABG Potassium (3.6-5.2) mmol/L VBG pH (7.32-7.43) VBG pCO2 (40-60) mmHg VBG HCO3 mmol/L VBG Total CO2 (22-28) mmol/L VBG O2 Sat (Calc) (40-65) % VBG Base Excess (0.0-2.0) mmol/L VBG Potassium (3.6-5.2) mmol/L A-a O2 Difference mm/Hg Respiratory Index Hgb O2 Saturation (95.0-98.0) % Sodium 132 (132-148) mmol/l Chloride 101 (98-107) mmol/L Glucose (75-110) mg/dl Lactate (0.7-2.1) mmol/L Vent Mode Mechanical Rate FiO2 % Tidal Volume PEEP Crit Value Called To Crit Value Called By Crit Value Read Back Blood Gas Notified Time Potassium 4.5 (3.6-5.2) mmol/L Carbon Dioxide 7 L* D (22-30) mmol/L Anion Gap 28 H (10-20) BUN 9 (9-20) mg/dL Creatinine 1.2 (0.8-1.5) mg/dL Est GFR ( Amer) > 60 Est GFR (Non-Af Amer) > 60 POC Glucose (mg/dL) (65-110) mg/dL Random Glucose 63 L (75-110) mg/dL Calcium 7.4 L (8.6-10.4) mg/dl Phosphorus (2.5-4.5) mg/dL Magnesium (1.6-2.3) mg/dL Total Bilirubin 11.8 H (0.2-1.3) mg/dL AST 129 H (17-59) U/L ALT 24 (21-72) U/L Alkaline Phosphatase 76 (38-126) U/L Ammonia 235 H D (9-33) umol/L Troponin I 0.0860 (0.00-0.120) ng/mL NT-Pro-B Natriuret Pep 1730 H (0-450) pg/mL Total Protein 6.3 (6.3-8.3) g/dL Albumin 2.4 L D (3.5-5.0) g/dL Globulin 3.9 (2.2-3.9) gm/dL Albumin/Globulin Ratio 0.6 L (1.0-2.1) Triglycerides 92 (0-149) mg/dL Cholesterol 127 (0-199) mg/dL LDL Cholesterol Direct < 30 (0-129) mg/dL HDL Cholesterol 41 (30-70) mg/dL Lipase 160 (23-300) U/L Arterial Blood Potassium (3.6-5.2) mmol/L Venous Blood Potassium (3.6-5.2) mmol/L Urine Color (YELLOW) Urine Clarity (Clear) Urine pH (5.0-8.0) Ur Specific [place] (1.003-1.030) Urine Protein (NEGATIVE) mg/dL Urine Glucose (UA) (Normal) mg/dL Urine Ketones (NEGATIVE) mg/dL Urine Blood (NEGATIVE) Urine Nitrate (NEGATIVE) Urine Bilirubin (NEGATIVE) Urine Urobilinogen (0.2-1.0) mg/dL Ur Leukocyte Esterase (Negative) Ru/uL Urine WBC (Auto) (0-5) /hpf Urine RBC (Auto) (0-3) /hpf Urine Opiates Screen (NEGATIVE) Urine Methadone Screen (NEGATIVE) Ur Barbiturates Screen (NEGATIVE) Ur Phencyclidine Scrn (NEGATIVE) Ur Amphetamines Screen (NEGATIVE) U Benzodiazepines Scrn (NEGATIVE) U Oth Cocaine Metabols (NEGATIVE) U Cannabinoids Screen (NEGATIVE) Blood Type B NEGATIVE Antibody Screen Negative 06/18/18 06/18/18 06/18/18 Range/Units 18:15 18:15 18:10 WBC 12.2 H (4.8-10.8) K/uL RBC 0.88 L (4.40-5.90) Mil/uL Hgb 3.4 L* D (12.0-18.0) g/dL Hct 11.5 L (35.0-51.0) % MCV 130.3 H D (80.0-94.0) fL MCH 38.7 H (27.0-31.0) pg MCHC 29.7 L (33.0-37.0) g/dL RDW 19.2 H (11.5-14.5) % Plt Count 57 L (130-400) K/uL MPV 8.3 (7.2-11.7) fL Neut % (Auto) 73.1 (50.0-75.0) % Lymph % (Auto) 10.0 L (20.0-40.0) % Hardy % (Auto) 15.8 H (0.0-10.0) % Eos % (Auto) 0.2 (0.0-4.0) % Baso % (Auto) 0.9 (0.0-2.0) % Neut # (Auto) 8.9 H (1.8-7.0) K/uL Lymph # (Auto) 1.2 (1.0-4.3) K/uL Hardy # (Auto) 1.9 H (0.0-0.8) K/uL Eos # (Auto) 0.0 (0.0-0.7) K/uL Baso # (Auto) 0.1 (0.0-0.2) K/uL Neutrophils % (Manual) 63 (50-75) % Band Neutrophils % 9 H (0-2) % Lymphocytes % (Manual) 14 L (20-40) % Monocytes % (Manual) 9 (0-10) % Myelocytes % 5 H (0-0) % Nucleated RBC % 6 H (0-0) % Platelet Estimate Decreased L (NORMAL) Polychromasia Slight Hypochromasia (manual) Marked Poikilocytosis (manual Moderate Anisocytosis (manual) Moderate Microcytosis (manual) Moderate Macrocytosis (manual) Moderate Target Cells Slight Tear Drop Cells Slight Ovalocytes Slight Luis Cells Moderate Acanthocytes (Spur) Moderate PT 64.3 H (9.7-12.2) SECONDS INR 5.8 H* APTT 97 H (21-34) SECONDS Fibrinogen (200-400) mg/dL Puncture Site pCO2 (35-45) mm/Hg pO2 41 (30-55) mm/Hg HCO3 (21-28) mmol/L ABG pH (7.35-7.45) ABG Total CO2 (22-28) mmol/L ABG O2 Saturation (95-98) % ABG Base Excess (-2.0-3.0) mmol/L ABG Hemoglobin (11.7-17.4) g/dL ABG Carboxyhemoglobin (0.5-1.5) % POC ABG HHb (Measured) (0.0-5.0) % ABG Methemoglobin (0.0-3.0) % Jorge Test ABG Potassium (3.6-5.2) mmol/L VBG pH < 6.80 L* (7.32-7.43) VBG pCO2 53 (40-60) mmHg VBG HCO3 mmol/L VBG Total CO2 (22-28) mmol/L VBG O2 Sat (Calc) 52.9 (40-65) % VBG Base Excess (0.0-2.0) mmol/L VBG Potassium 4.2 (3.6-5.2) mmol/L A-a O2 Difference mm/Hg Respiratory Index Hgb O2 Saturation (95.0-98.0) % Sodium 134.0 (132-148) mmol/l Chloride 104.0 (98-107) mmol/L Glucose 64 L (75-110) mg/dl Lactate 18.7 H* (0.7-2.1) mmol/L Vent Mode Mechanical Rate FiO2 % Tidal Volume PEEP Crit Value Called To Dr carrasco Crit Value Called By Edie hood Crit Value Read Back Y Blood Gas Notified Time 1815 Potassium (3.6-5.2) mmol/L Carbon Dioxide (22-30) mmol/L Anion Gap (10-20) BUN (9-20) mg/dL Creatinine (0.8-1.5) mg/dL Est GFR ( Amer) Est GFR (Non-Af Amer) POC Glucose (mg/dL) (65-110) mg/dL Random Glucose (75-110) mg/dL Calcium (8.6-10.4) mg/dl Phosphorus (2.5-4.5) mg/dL Magnesium (1.6-2.3) mg/dL Total Bilirubin (0.2-1.3) mg/dL AST (17-59) U/L ALT (21-72) U/L Alkaline Phosphatase (38-126) U/L Ammonia (9-33) umol/L Troponin I (0.00-0.120) ng/mL NT-Pro-B Natriuret Pep (0-450) pg/mL Total Protein (6.3-8.3) g/dL Albumin (3.5-5.0) g/dL Globulin (2.2-3.9) gm/dL Albumin/Globulin Ratio (1.0-2.1) Triglycerides (0-149) mg/dL Cholesterol (0-199) mg/dL LDL Cholesterol Direct (0-129) mg/dL HDL Cholesterol (30-70) mg/dL Lipase (23-300) U/L Arterial Blood Potassium (3.6-5.2) mmol/L Venous Blood Potassium 4.2 (3.6-5.2) mmol/L Urine Color (YELLOW) Urine Clarity (Clear) Urine pH (5.0-8.0) Ur Specific [place] (1.003-1.030) Urine Protein (NEGATIVE) mg/dL Urine Glucose (UA) (Normal) mg/dL Urine Ketones (NEGATIVE) mg/dL Urine Blood (NEGATIVE) Urine Nitrate (NEGATIVE) Urine Bilirubin (NEGATIVE) Urine Urobilinogen (0.2-1.0) mg/dL Ur Leukocyte Esterase (Negative) Ru/uL Urine WBC (Auto) (0-5) /hpf Urine RBC (Auto) (0-3) /hpf Urine Opiates Screen (NEGATIVE) Urine Methadone Screen (NEGATIVE) Ur Barbiturates Screen (NEGATIVE) Ur Phencyclidine Scrn (NEGATIVE) Ur Amphetamines Screen (NEGATIVE) U Benzodiazepines Scrn (NEGATIVE) U Oth Cocaine Metabols (NEGATIVE) U Cannabinoids Screen (NEGATIVE) Blood Type Antibody Screen Laboratory Results - last 24 hr 06/18/18 06/18/18 06/18/18 18:10 18:15 18:15 WBC 12.2 H RBC 0.88 L Hgb 3.4 L* D Hct 11.5 L MCV 130.3 H D MCH 38.7 H MCHC 29.7 L RDW 19.2 H Plt Count 57 L MPV 8.3 Neut % (Auto) 73.1 Lymph % (Auto) 10.0 L Hardy % (Auto) 15.8 H Eos % (Auto) 0.2 Baso % (Auto) 0.9 Neut # (Auto) 8.9 H Lymph # (Auto) 1.2 Hardy # (Auto) 1.9 H Eos # (Auto) 0.0 Baso # (Auto) 0.1 Neutrophils % (Manual) 63 Band Neutrophils % 9 H Lymphocytes % (Manual) 14 L Monocytes % (Manual) 9 Myelocytes % 5 H Nucleated RBC % 6 H Platelet Estimate Decreased L Polychromasia Slight Hypochromasia (manual) Marked Poikilocytosis (manual Moderate Anisocytosis (manual) Moderate Microcytosis (manual) Moderate Macrocytosis (manual) Moderate Target Cells Slight Tear Drop Cells Slight Ovalocytes Slight Plush Cells Moderate Acanthocytes (Spur) Moderate PT 64.3 H INR 5.8 H* APTT 97 H Fibrinogen Puncture Site pCO2 pO2 41 HCO3 ABG pH ABG Total CO2 ABG O2 Saturation ABG Base Excess ABG Hemoglobin ABG Carboxyhemoglobin POC ABG HHb (Measured) ABG Methemoglobin Jorge Test ABG Potassium VBG pH < 6.80 L* VBG pCO2 53 VBG HCO3 VBG Total CO2 VBG O2 Sat (Calc) 52.9 VBG Base Excess VBG Potassium 4.2 A-a O2 Difference Respiratory Index Hgb O2 Saturation Sodium 134.0 Chloride 104.0 Glucose 64 L Lactate 18.7 H* Vent Mode Mechanical Rate FiO2 Tidal Volume PEEP Crit Value Called To Dr carrasco Crit Value Called By Edie hood Crit Value Read Back Y Blood Gas Notified Time 181 Potassium Carbon Dioxide Anion Gap BUN Creatinine Est GFR ( Amer) Est GFR (Non-Af Amer) POC Glucose (mg/dL) Random Glucose Calcium Phosphorus Magnesium Total Bilirubin AST ALT Alkaline Phosphatase Ammonia Troponin I NT-Pro-B Natriuret Pep Total Protein Albumin Globulin Albumin/Globulin Ratio Triglycerides Cholesterol LDL Cholesterol Direct HDL Cholesterol Lipase Arterial Blood Potassium Venous Blood Potassium 4.2 Urine Color Urine Clarity Urine pH Ur Specific [place] Urine Protein Urine Glucose (UA) Urine Ketones Urine Blood Urine Nitrate Urine Bilirubin Urine Urobilinogen Ur Leukocyte Esterase Urine WBC (Auto) Urine RBC (Auto) Urine Opiates Screen Urine Methadone Screen Ur Barbiturates Screen Ur Phencyclidine Scrn Ur Amphetamines Screen U Benzodiazepines Scrn U Oth Cocaine Metabols U Cannabinoids Screen Blood Type Antibody Screen 06/18/18 06/18/18 06/18/18 18:15 18:15 18:15 WBC RBC Hgb Hct MCV MCH MCHC RDW Plt Count MPV Neut % (Auto) Lymph % (Auto) Hardy % (Auto) Eos % (Auto) Baso % (Auto) Neut # (Auto) Lymph # (Auto) Hardy # (Auto) Eos # (Auto) Baso # (Auto) Neutrophils % (Manual) Band Neutrophils % Lymphocytes % (Manual) Monocytes % (Manual) Myelocytes % Nucleated RBC % Platelet Estimate Polychromasia Hypochromasia (manual) Poikilocytosis (manual Anisocytosis (manual) Microcytosis (manual) Macrocytosis (manual) Target Cells Tear Drop Cells Ovalocytes Luis Cells Acanthocytes (Spur) PT INR APTT Fibrinogen Puncture Site pCO2 pO2 HCO3 ABG pH ABG Total CO2 ABG O2 Saturation ABG Base Excess ABG Hemoglobin ABG Carboxyhemoglobin POC ABG HHb (Measured) ABG Methemoglobin Jorge Test ABG Potassium VBG pH VBG pCO2 VBG HCO3 VBG Total CO2 VBG O2 Sat (Calc) VBG Base Excess VBG Potassium A-a O2 Difference Respiratory Index Hgb O2 Saturation Sodium 132 Chloride 101 Glucose Lactate Vent Mode Mechanical Rate FiO2 Tidal Volume PEEP Crit Value Called To Crit Value Called By Crit Value Read Back Blood Gas Notified Time Potassium 4.5 Carbon Dioxide 7 L* D Anion Gap 28 H BUN 9 Creatinine 1.2 Est GFR ( Amer) > 60 Est GFR (Non-Af Amer) > 60 POC Glucose (mg/dL) Random Glucose 63 L Calcium 7.4 L Phosphorus Magnesium Total Bilirubin 11.8 H AST 129 H ALT 24 Alkaline Phosphatase 76 Ammonia 235 H D Troponin I 0.0860 NT-Pro-B Natriuret Pep 1730 H Total Protein 6.3 Albumin 2.4 L D Globulin 3.9 Albumin/Globulin Ratio 0.6 L Triglycerides 92 Cholesterol 127 LDL Cholesterol Direct < 30 HDL Cholesterol 41 Lipase 160 Arterial Blood Potassium Venous Blood Potassium Urine Color Urine Clarity Urine pH Ur Specific [place] Urine Protein Urine Glucose (UA) Urine Ketones Urine Blood Urine Nitrate Urine Bilirubin Urine Urobilinogen Ur Leukocyte Esterase Urine WBC (Auto) Urine RBC (Auto) Urine Opiates Screen Urine Methadone Screen Ur Barbiturates Screen Ur Phencyclidine Scrn Ur Amphetamines Screen U Benzodiazepines Scrn U Oth Cocaine Metabols U Cannabinoids Screen Blood Type B NEGATIVE Antibody Screen Negative 06/18/18 06/18/18 06/18/18 18:29 18:30 18:30 WBC RBC Hgb Hct MCV MCH MCHC RDW Plt Count MPV Neut % (Auto) Lymph % (Auto) Hardy % (Auto) Eos % (Auto) Baso % (Auto) Neut # (Auto) Lymph # (Auto) Hardy # (Auto) Eos # (Auto) Baso # (Auto) Neutrophils % (Manual) Band Neutrophils % Lymphocytes % (Manual) Monocytes % (Manual) Myelocytes % Nucleated RBC % Platelet Estimate Polychromasia Hypochromasia (manual) Poikilocytosis (manual Anisocytosis (manual) Microcytosis (manual) Macrocytosis (manual) Target Cells Tear Drop Cells Ovalocytes Plush Cells Acanthocytes (Spur) PT INR APTT Fibrinogen Puncture Site pCO2 pO2 HCO3 ABG pH ABG Total CO2 ABG O2 Saturation ABG Base Excess ABG Hemoglobin ABG Carboxyhemoglobin POC ABG HHb (Measured) ABG Methemoglobin Jorge Test ABG Potassium VBG pH VBG pCO2 VBG HCO3 VBG Total CO2 VBG O2 Sat (Calc) VBG Base Excess VBG Potassium A-a O2 Difference Respiratory Index Hgb O2 Saturation Sodium Chloride Glucose Lactate Vent Mode Mechanical Rate FiO2 Tidal Volume PEEP Crit Value Called To Crit Value Called By Crit Value Read Back Blood Gas Notified Time Potassium Carbon Dioxide Anion Gap BUN Creatinine Est GFR ( Amer) Est GFR (Non-Af Amer) POC Glucose (mg/dL) 118 H Random Glucose Calcium Phosphorus Magnesium Total Bilirubin AST ALT Alkaline Phosphatase Ammonia Troponin I NT-Pro-B Natriuret Pep Total Protein Albumin Globulin Albumin/Globulin Ratio Triglycerides Cholesterol LDL Cholesterol Direct HDL Cholesterol Lipase Arterial Blood Potassium Venous Blood Potassium Urine Color Shahana Urine Clarity Hazy Urine pH 5.0 Ur Specific [place] 1.015 Urine Protein 1+ H Urine Glucose (UA) Normal Urine Ketones Negative Urine Blood 1+ H Urine Nitrate Negative Urine Bilirubin 1+ H Urine Urobilinogen 4.0 Ur Leukocyte Esterase Neg Urine WBC (Auto) < 1 Urine RBC (Auto) < 1 Urine Opiates Screen Negative Urine Methadone Screen Negative Ur Barbiturates Screen Negative Ur Phencyclidine Scrn Negative Ur Amphetamines Screen Negative U Benzodiazepines Scrn Negative U Oth Cocaine Metabols Negative U Cannabinoids Screen Negative Blood Type Antibody Screen 06/18/18 06/18/18 06/18/18 19:00 19:02 21:44 WBC RBC Hgb Hct MCV MCH MCHC RDW Plt Count MPV Neut % (Auto) Lymph % (Auto) Hardy % (Auto) Eos % (Auto) Baso % (Auto) Neut # (Auto) Lymph # (Auto) Hardy # (Auto) Eos # (Auto) Baso # (Auto) Neutrophils % (Manual) Band Neutrophils % Lymphocytes % (Manual) Monocytes % (Manual) Myelocytes % Nucleated RBC % Platelet Estimate Polychromasia Hypochromasia (manual) Poikilocytosis (manual Anisocytosis (manual) Microcytosis (manual) Macrocytosis (manual) Target Cells Tear Drop Cells Ovalocytes Plush Cells Acanthocytes (Spur) PT INR APTT Fibrinogen < 35 L Puncture Site Rba pCO2 30 L pO2 233 H HCO3 6.9 L* ABG pH 6.93 L* ABG Total CO2 7.2 L ABG O2 Saturation 101.9 H ABG Base Excess -23.2 L ABG Hemoglobin 3.3 L ABG Carboxyhemoglobin 5.2 H POC ABG HHb (Measured) -1.8 L ABG Methemoglobin 2.4 Jorge Test Na ABG Potassium VBG pH VBG pCO2 VBG HCO3 VBG Total CO2 VBG O2 Sat (Calc) VBG Base Excess VBG Potassium A-a O2 Difference 443.0 Respiratory Index 1.9 Hgb O2 Saturation 94.3 L Sodium Chloride Glucose Lactate Vent Mode Prvc Mechanical Rate 18 FiO2 100.0 Tidal Volume 550 PEEP 6 Crit Value Called To Er nurse vance Crit Value Called By Edie rt Crit Value Read Back Y Blood Gas Notified Time 190 Potassium Carbon Dioxide Anion Gap BUN Creatinine Est GFR ( Amer) Est GFR (Non-Af Amer) POC Glucose (mg/dL) Random Glucose Calcium Phosphorus 8.8 H Magnesium 2.0 Total Bilirubin AST ALT Alkaline Phosphatase Ammonia Troponin I NT-Pro-B Natriuret Pep Total Protein Albumin Globulin Albumin/Globulin Ratio Triglycerides Cholesterol LDL Cholesterol Direct HDL Cholesterol Lipase Arterial Blood Potassium Venous Blood Potassium Urine Color Urine Clarity Urine pH Ur Specific [place] Urine Protein Urine Glucose (UA) Urine Ketones Urine Blood Urine Nitrate Urine Bilirubin Urine Urobilinogen Ur Leukocyte Esterase Urine WBC (Auto) Urine RBC (Auto) Urine Opiates Screen Urine Methadone Screen Ur Barbiturates Screen Ur Phencyclidine Scrn Ur Amphetamines Screen U Benzodiazepines Scrn U Oth Cocaine Metabols U Cannabinoids Screen Blood Type Antibody Screen 06/18/18 06/18/18 06/19/18 23:25 23:25 00:21 WBC 15.9 H RBC 1.12 L Hgb 3.9 L* Hct 12.3 L MCV 109.4 H D MCH 34.5 H MCHC 31.6 L RDW 25.5 H Plt Count 13 L* D MPV 11.1 Neut % (Auto) 73.6 Lymph % (Auto) 13.1 L Hardy % (Auto) 12.2 H Eos % (Auto) 0.6 Baso % (Auto) 0.5 Neut # (Auto) 11.7 H Lymph # (Auto) 2.1 Hardy # (Auto) 1.9 H Eos # (Auto) 0.1 Baso # (Auto) 0.1 Neutrophils % (Manual) Band Neutrophils % Lymphocytes % (Manual) Monocytes % (Manual) Myelocytes % Nucleated RBC % Platelet Estimate Polychromasia Hypochromasia (manual) Poikilocytosis (manual Anisocytosis (manual) Microcytosis (manual) Macrocytosis (manual) Target Cells Tear Drop Cells Ovalocytes Luis Cells Acanthocytes (Spur) PT 97.9 H D INR 8.9 H* D APTT 184 H* D Fibrinogen Puncture Site Lb pCO2 31 L pO2 99 HCO3 3.6 L* ABG pH 6.87 L* ABG Total CO2 6.7 L ABG O2 Saturation 99.5 H ABG Base Excess -27.1 L ABG Hemoglobin ABG Carboxyhemoglobin POC ABG HHb (Measured) ABG Methemoglobin Jorge Test Na ABG Potassium 5.2 VBG pH VBG pCO2 VBG HCO3 VBG Total CO2 VBG O2 Sat (Calc) VBG Base Excess VBG Potassium A-a O2 Difference 575.0 Respiratory Index 5.8 Hgb O2 Saturation Sodium 132.0 Chloride 102.0 Glucose 87 Lactate > 20.0 H* Vent Mode Prvc Mechanical Rate 20 FiO2 100.0 Tidal Volume 550 PEEP 5 Crit Value Called To Dr. reyna Crit Value Called By Sofía cemetery manager Crit Value Read Back Y Blood Gas Notified Time 26 Potassium Carbon Dioxide Anion Gap BUN Creatinine Est GFR ( Amer) Est GFR (Non-Af Amer) POC Glucose (mg/dL) Random Glucose Calcium Phosphorus Magnesium Total Bilirubin AST ALT Alkaline Phosphatase Ammonia Troponin I NT-Pro-B Natriuret Pep Total Protein Albumin Globulin Albumin/Globulin Ratio Triglycerides Cholesterol LDL Cholesterol Direct HDL Cholesterol Lipase Arterial Blood Potassium 5.2 Venous Blood Potassium Urine Color Urine Clarity Urine pH Ur Specific [place] Urine Protein Urine Glucose (UA) Urine Ketones Urine Blood Urine Nitrate Urine Bilirubin Urine Urobilinogen Ur Leukocyte Esterase Urine WBC (Auto) Urine RBC (Auto) Urine Opiates Screen Urine Methadone Screen Ur Barbiturates Screen Ur Phencyclidine Scrn Ur Amphetamines Screen U Benzodiazepines Scrn U Oth Cocaine Metabols U Cannabinoids Screen Blood Type Antibody Screen 06/19/18 06/19/18 06/19/18 00:30 02:05 05:15 WBC 9.4 RBC 0.79 L Hgb 2.6 L* Hct 8.1 L MCV 101.7 H D MCH 33.0 H MCHC 32.5 L RDW 17.4 H Plt Count 44 L D MPV 6.9 L Neut % (Auto) 75.0 Lymph % (Auto) 9.6 L Hardy % (Auto) 14.6 H Eos % (Auto) 0.5 Baso % (Auto) 0.3 Neut # (Auto) 7.1 H Lymph # (Auto) 0.9 L Hardy # (Auto) 1.4 H Eos # (Auto) 0.0 Baso # (Auto) 0.0 Neutrophils % (Manual) Band Neutrophils % Lymphocytes % (Manual) Monocytes % (Manual) Myelocytes % Nucleated RBC % Platelet Estimate Polychromasia Hypochromasia (manual) Poikilocytosis (manual Anisocytosis (manual) Microcytosis (manual) Macrocytosis (manual) Target Cells Tear Drop Cells Ovalocytes Plush Cells Acanthocytes (Spur) PT INR APTT Fibrinogen Puncture Site pCO2 pO2 102 H HCO3 ABG pH ABG Total CO2 ABG O2 Saturation ABG Base Excess ABG Hemoglobin ABG Carboxyhemoglobin POC ABG HHb (Measured) ABG Methemoglobin Jorge Test ABG Potassium VBG pH 6.93 L* VBG pCO2 32 L VBG HCO3 5.3 VBG Total CO2 7.7 L VBG O2 Sat (Calc) 99.7 H VBG Base Excess -25.0 L VBG Potassium 5.1 A-a O2 Difference Respiratory Index Hgb O2 Saturation Sodium 133 132.0 Chloride 102 101.0 Glucose 145 H Lactate > 20.0 H* Vent Mode Mechanical Rate FiO2 100.0 Tidal Volume PEEP 5 Crit Value Called To Olamide rn Crit Value Called By Sofía cemetery manager Crit Value Read Back Y Blood Gas Notified Time 209 Potassium 5.3 H Carbon Dioxide 6 L* Anion Gap 30 H BUN 10 Creatinine 1.5 Est GFR ( Amer) > 60 Est GFR (Non-Af Amer) 52 POC Glucose (mg/dL) Random Glucose 85 Calcium 6.5 L Phosphorus Magnesium Total Bilirubin AST ALT Alkaline Phosphatase Ammonia Troponin I NT-Pro-B Natriuret Pep Total Protein Albumin Globulin Albumin/Globulin Ratio Triglycerides Cholesterol LDL Cholesterol Direct HDL Cholesterol Lipase Arterial Blood Potassium Venous Blood Potassium 5.1 Urine Color Urine Clarity Urine pH Ur Specific [place] Urine Protein Urine Glucose (UA) Urine Ketones Urine Blood Urine Nitrate Urine Bilirubin Urine Urobilinogen Ur Leukocyte Esterase Urine WBC (Auto) Urine RBC (Auto) Urine Opiates Screen Urine Methadone Screen Ur Barbiturates Screen Ur Phencyclidine Scrn Ur Amphetamines Screen U Benzodiazepines Scrn U Oth Cocaine Metabols U Cannabinoids Screen Blood Type Antibody Screen 06/19/18 06/19/18 06/19/18 05:15 05:15 05:40 WBC RBC Hgb Hct MCV MCH MCHC RDW Plt Count MPV Neut % (Auto) Lymph % (Auto) Hardy % (Auto) Eos % (Auto) Baso % (Auto) Neut # (Auto) Lymph # (Auto) Hardy # (Auto) Eos # (Auto) Baso # (Auto) Neutrophils % (Manual) Band Neutrophils % Lymphocytes % (Manual) Monocytes % (Manual) Myelocytes % Nucleated RBC % Platelet Estimate Polychromasia Hypochromasia (manual) Poikilocytosis (manual Anisocytosis (manual) Microcytosis (manual) Macrocytosis (manual) Target Cells Tear Drop Cells Ovalocytes Plush Cells Acanthocytes (Spur) PT 36.1 H D INR 3.3 H* D APTT 156 H* D Fibrinogen Puncture Site Lb/rn pCO2 31 L pO2 45 L HCO3 3.2 L* ABG pH 6.90 L* ABG Total CO2 7.1 L ABG O2 Saturation ABG Base Excess -26.1 L ABG Hemoglobin < 3.0 L ABG Carboxyhemoglobin POC ABG HHb (Measured) ABG Methemoglobin Jorge Test Na ABG Potassium VBG pH VBG pCO2 VBG HCO3 VBG Total CO2 VBG O2 Sat (Calc) VBG Base Excess VBG Potassium A-a O2 Difference 629.0 Respiratory Index 14.0 Hgb O2 Saturation Sodium 134 Chloride 100 Glucose Lactate Vent Mode Prvc Mechanical Rate 24 FiO2 100.0 Tidal Volume 550 PEEP 5 Crit Value Called To Jack montgomery/rn Crit Value Called By Candelario doran/rt Crit Value Read Back Y Blood Gas Notified Time 555 Potassium 4.9 Carbon Dioxide 6 L* Anion Gap 33 H BUN 9 Creatinine 1.6 H Est GFR ( Amer) 58 Est GFR (Non-Af Amer) 48 POC Glucose (mg/dL) Random Glucose 117 H Calcium 5.7 L* Phosphorus 10.4 H Magnesium 2.0 Total Bilirubin 5.9 H AST 410 H D ALT 75 H D Alkaline Phosphatase 21 L D Ammonia Troponin I NT-Pro-B Natriuret Pep Total Protein 3.5 L Albumin 1.4 L D Globulin 2.0 L Albumin/Globulin Ratio 0.7 L Triglycerides Cholesterol LDL Cholesterol Direct HDL Cholesterol Lipase Arterial Blood Potassium Venous Blood Potassium Urine Color Urine Clarity Urine pH Ur Specific [place] Urine Protein Urine Glucose (UA) Urine Ketones Urine Blood Urine Nitrate Urine Bilirubin Urine Urobilinogen Ur Leukocyte Esterase Urine WBC (Auto) Urine RBC (Auto) Urine Opiates Screen Urine Methadone Screen Ur Barbiturates Screen Ur Phencyclidine Scrn Ur Amphetamines Screen U Benzodiazepines Scrn U Oth Cocaine Metabols U Cannabinoids Screen Blood Type Antibody Screen EKG/Cardiology Studies: Cardiology / EKG Studies 06/18/18 18:07 ELECTROCARDIOGRAM Stat Comment: Mode Of Transportation: BED Reason For Exam: chest pain Fingerstick Blood Sugar Results: 118 Assessment/Plan - Assessment and Plan (Free Text) Assessment: Patient is a 38 y/o male,w/PMhx of liver cirrhosis,renal failure, and GI bleed, brought to ER by ambulance s/p cardiac arrest and was intubated in the field. Plan: Neuro: Status epilepticus, Hx of alcohol abuse - Midazolam drip - Phenytoin 90mg IV Q8 - Phenobarbital 100mg IV Q8 - Patient unresponsive, pupils dilated and fixed - Neurology consulted, Dr. Vance Montilla bag - EEG: f/u CV: Cardiopulmonary arrest/Hypotension/Severe acidosis - Continue Vent support - On Levophed, Dopamine, Vasopressin, and Phenylephrine drips - S/p 13 bags of Sodium Bicarbonate - ABG: PO2 45, PCO2 31, pH 6.90 - Cardiology consulted, Dr. Smith Pulm: Pneumonia, respiratory arrest - Continue Vent support - Zosyn 3.375g IV Q6 - ID consulted, Dr. Peters GI Liver disease/Coagulopathy,retroperitoneal bleed,severe anemia - Since admission patient received: 9 units of PRBC, 1 unit of platelets, 5 units of FFP, 10 units of Cryoprecipitate - Fibrinogen: < 35 - Hb: 2.6 --> 3.4 - Platelets: 44 --> 19 - INR: 8.8 --> 3.3 - ALT/AST: 75/410 Heme: DIC, acute anemia, acute thombocytopenia - Since admission patient received: 9 units of PRBC, 1 unit of platelets, 5 units of FFP, 10 units of Cryoprecipitate - Fibrinogen: < 35 - Hb: 2.6 --> 3.4 - Platelets: 44 --> 19 - INR: 8.8 --> 3.3 - Heme-onc consulted, Dr. Reyes ID: Sepsis, septic shock - Zosyn 3.375g IV Q6 - ID consulted, Dr. Peters - Continue Vent support - On Levophed, Dopamine, Vasopressin, and Phenylephrine drips - Blood cx, urine cx: f/u Palliative care consulted, Amy Case discussed with Dr. Hermilo Justice, PGY-1 <Clifton Akhtar S - Last Filed: 06/19/18 18:25> CCU Subjective - Physician Review Critical Care Time Spent (in minutes): 60 CCU Objective - Vital Signs / Intake & Output Intake and Output (Last 8hrs): Intake & Output 06/19/18 06/19/18 06/19/18 06:59 14:59 22:59 Intake Total 7747.0 7031.0 Output Total 5 Balance 7747.0 7026.0 Weight 272 lb Intake: IV 1296 1006 Intake, IV Amount 3484.0 3464.0 Left Antecubital 500 200 Left Forearm 40 320 Right Distal Port 780.0 780.0 Right Distal Port Femoral 19.2 19.2 Right Medial Port Femoral 1200 1200 Right Proximal Port 720 720 Right Proximal Port 224.8 224.8 Femoral Blood Product 2967 2521 Apheresis Plts Acda Lr 310 Irr 2nd Unit [id number] Apheresis Rbc Cp2d As3 Lr 282 1st Unit [id number] Apheresis Rbc Cp2d As3 Lr 281 1st Unit [id number] Apheresis Rbc Cp2d As3 Lr 277 2nd Unit [id number] Red Blood Cells Cpd As1 325 Lr Unit [id number] Red Blood Cells Cpd As1 325 Lr Unit [id number] Red Blood Cells Cpd As1 325 Lr Unit [id number] Other 40 Apheresis Rbc Cp2d As3 Lr 20 1st Unit [id number] Apheresis Rbc Cp2d As3 Lr 20 2nd Unit [id number] Output: Urine 5 Urethral (Garcia) 5 Other: # Bowel Movements 1 - Patient Studies Lab Studies: Microbiology Studies 06/18/18 18:00 Blood Culture - Preliminary Blood NO GROWTH AFTER 24 HOURS Lab Studies 06/19/18 06/19/18 06/19/18 Range/Units 09:32 05:40 05:15 WBC 7.2 (4.8-10.8) K/uL RBC 1.05 L (4.40-5.90) Mil/uL Hgb 3.4 L* (12.0-18.0) g/dL Hct 10.1 L (35.0-51.0) % MCV 96.7 H D (80.0-94.0) fL MCH 32.6 H (27.0-31.0) pg MCHC 33.8 (33.0-37.0) g/dL RDW 14.8 H (11.5-14.5) % Plt Count 19 L* D (130-400) K/uL MPV 7.6 (7.2-11.7) fL Neut % (Auto) 71.4 (50.0-75.0) % Lymph % (Auto) 12.9 L (20.0-40.0) % Hardy % (Auto) 14.9 H (0.0-10.0) % Eos % (Auto) 0.3 (0.0-4.0) % Baso % (Auto) 0.5 (0.0-2.0) % Neut # (Auto) 5.1 (1.8-7.0) K/uL Lymph # (Auto) 0.9 L (1.0-4.3) K/uL Hardy # (Auto) 1.1 H (0.0-0.8) K/uL Eos # (Auto) 0.0 (0.0-0.7) K/uL Baso # (Auto) 0.0 (0.0-0.2) K/uL Neutrophils % (Manual) (50-75) % Band Neutrophils % (0-2) % Lymphocytes % (Manual) (20-40) % Monocytes % (Manual) (0-10) % Myelocytes % (0-0) % Nucleated RBC % (0-0) % Differential Comment Platelet Estimate (NORMAL) Polychromasia Hypochromasia (manual) Poikilocytosis (manual Anisocytosis (manual) Microcytosis (manual) Macrocytosis (manual) Target Cells Tear Drop Cells Ovalocytes Plush Cells Acanthocytes (Spur) Smear Path Review PT 36.1 H D (9.7-12.2) SECONDS INR 3.3 H* D APTT 156 H* D (21-34) SECONDS Fibrinogen (200-400) mg/dL Puncture Site Lb/rn pCO2 31 L (35-45) mm/Hg pO2 45 L (80-100) mm/Hg HCO3 3.2 L* (21-28) mmol/L ABG pH 6.90 L* (7.35-7.45) ABG Total CO2 7.1 L (22-28) mmol/L ABG O2 Saturation (95-98) % ABG Base Excess -26.1 L (-2.0-3.0) mmol/L ABG Hemoglobin < 3.0 L (11.7-17.4) g/dL ABG Carboxyhemoglobin (0.5-1.5) % POC ABG HHb (Measured) (0.0-5.0) % ABG Methemoglobin (0.0-3.0) % Jorge Test Na ABG Potassium (3.6-5.2) mmol/L VBG pH (7.32-7.43) VBG pCO2 (40-60) mmHg VBG HCO3 mmol/L VBG Total CO2 (22-28) mmol/L VBG O2 Sat (Calc) (40-65) % VBG Base Excess (0.0-2.0) mmol/L VBG Potassium (3.6-5.2) mmol/L A-a O2 Difference 629.0 mm/Hg Respiratory Index 14.0 Hgb O2 Saturation (95.0-98.0) % Glucose (75-110) mg/dl Lactate (0.7-2.1) mmol/L Vent Mode Prvc Mechanical Rate 24 FiO2 100.0 % Tidal Volume 550 PEEP 5 Crit Value Called To Jack montgomery/rn Crit Value Called By Candelario doran/rt Crit Value Read Back Y Blood Gas Notified Time 555 Sodium (132-148) mmol/L Potassium (3.6-5.2) mmol/L Chloride (98-107) mmol/L Carbon Dioxide (22-30) mmol/L Anion Gap (10-20) BUN (9-20) mg/dL Creatinine (0.8-1.5) mg/dL Est GFR ( Amer) Est GFR (Non-Af Amer) POC Glucose (mg/dL) (65-110) mg/dL Random Glucose (75-110) mg/dL Calcium (8.6-10.4) mg/dl Phosphorus (2.5-4.5) mg/dL Magnesium (1.6-2.3) mg/dL Total Bilirubin (0.2-1.3) mg/dL AST (17-59) U/L ALT (21-72) U/L Alkaline Phosphatase (38-126) U/L Ammonia (9-33) umol/L Troponin I (0.00-0.120) ng/mL NT-Pro-B Natriuret Pep (0-450) pg/mL Total Protein (6.3-8.3) g/dL Albumin (3.5-5.0) g/dL Globulin (2.2-3.9) gm/dL Albumin/Globulin Ratio (1.0-2.1) Triglycerides (0-149) mg/dL Cholesterol (0-199) mg/dL LDL Cholesterol Direct (0-129) mg/dL HDL Cholesterol (30-70) mg/dL Lipase (23-300) U/L Arterial Blood Potassium (3.6-5.2) mmol/L Venous Blood Potassium (3.6-5.2) mmol/L Urine Color (YELLOW) Urine Clarity (Clear) Urine pH (5.0-8.0) Ur Specific [place] (1.003-1.030) Urine Protein (NEGATIVE) mg/dL Urine Glucose (UA) (Normal) mg/dL Urine Ketones (NEGATIVE) mg/dL Urine Blood (NEGATIVE) Urine Nitrate (NEGATIVE) Urine Bilirubin (NEGATIVE) Urine Urobilinogen (0.2-1.0) mg/dL Ur Leukocyte Esterase (Negative) Ru/uL Urine WBC (Auto) (0-5) /hpf Urine RBC (Auto) (0-3) /hpf Urine Opiates Screen (NEGATIVE) Urine Methadone Screen (NEGATIVE) Ur Barbiturates Screen (NEGATIVE) Ur Phencyclidine Scrn (NEGATIVE) Ur Amphetamines Screen (NEGATIVE) U Benzodiazepines Scrn (NEGATIVE) U Oth Cocaine Metabols (NEGATIVE) U Cannabinoids Screen (NEGATIVE) Blood Type Antibody Screen 06/19/18 06/19/18 06/19/18 Range/Units 05:15 05:15 02:05 WBC 9.4 (4.8-10.8) K/uL RBC 0.79 L (4.40-5.90) Mil/uL Hgb 2.6 L* (12.0-18.0) g/dL Hct 8.1 L (35.0-51.0) % MCV 101.7 H D (80.0-94.0) fL MCH 33.0 H (27.0-31.0) pg MCHC 32.5 L (33.0-37.0) g/dL RDW 17.4 H (11.5-14.5) % Plt Count 44 L D (130-400) K/uL MPV 6.9 L (7.2-11.7) fL Neut % (Auto) 75.0 (50.0-75.0) % Lymph % (Auto) 9.6 L (20.0-40.0) % Hardy % (Auto) 14.6 H (0.0-10.0) % Eos % (Auto) 0.5 (0.0-4.0) % Baso % (Auto) 0.3 (0.0-2.0) % Neut # (Auto) 7.1 H (1.8-7.0) K/uL Lymph # (Auto) 0.9 L (1.0-4.3) K/uL Hardy # (Auto) 1.4 H (0.0-0.8) K/uL Eos # (Auto) 0.0 (0.0-0.7) K/uL Baso # (Auto) 0.0 (0.0-0.2) K/uL Neutrophils % (Manual) 49 L (50-75) % Band Neutrophils % 29 H* (0-2) % Lymphocytes % (Manual) 9 L (20-40) % Monocytes % (Manual) 13 H (0-10) % Myelocytes % (0-0) % Nucleated RBC % 3 H (0-0) % Differential Comment Platelet Estimate Decreased L (NORMAL) Polychromasia Slight Hypochromasia (manual) Slight Poikilocytosis (manual Anisocytosis (manual) Slight Microcytosis (manual) Slight Macrocytosis (manual) Slight Target Cells Tear Drop Cells Ovalocytes Luis Cells Slight Acanthocytes (Spur) Smear Path Review PT (9.7-12.2) SECONDS INR APTT (21-34) SECONDS Fibrinogen (200-400) mg/dL Puncture Site pCO2 (35-45) mm/Hg pO2 102 H (80-100) mm/Hg HCO3 (21-28) mmol/L ABG pH (7.35-7.45) ABG Total CO2 (22-28) mmol/L ABG O2 Saturation (95-98) % ABG Base Excess (-2.0-3.0) mmol/L ABG Hemoglobin (11.7-17.4) g/dL ABG Carboxyhemoglobin (0.5-1.5) % POC ABG HHb (Measured) (0.0-5.0) % ABG Methemoglobin (0.0-3.0) % Jorge Test ABG Potassium (3.6-5.2) mmol/L VBG pH 6.93 L* (7.32-7.43) VBG pCO2 32 L (40-60) mmHg VBG HCO3 5.3 mmol/L VBG Total CO2 7.7 L (22-28) mmol/L VBG O2 Sat (Calc) 99.7 H (40-65) % VBG Base Excess -25.0 L (0.0-2.0) mmol/L VBG Potassium 5.1 (3.6-5.2) mmol/L A-a O2 Difference mm/Hg Respiratory Index Hgb O2 Saturation (95.0-98.0) % Glucose 145 H (75-110) mg/dl Lactate > 20.0 H* (0.7-2.1) mmol/L Vent Mode Mechanical Rate FiO2 100.0 % Tidal Volume PEEP 5 Crit Value Called To Olamide rn Crit Value Called By Sofía cemetery manager Crit Value Read Back Y Blood Gas Notified Time 209 Sodium 134 132.0 (132-148) mmol/L Potassium 4.9 (3.6-5.2) mmol/L Chloride 100 101.0 (98-107) mmol/L Carbon Dioxide 6 L* (22-30) mmol/L Anion Gap 33 H (10-20) BUN 9 (9-20) mg/dL Creatinine 1.6 H (0.8-1.5) mg/dL Est GFR ( Amer) 58 Est GFR (Non-Af Amer) 48 POC Glucose (mg/dL) (65-110) mg/dL Random Glucose 117 H (75-110) mg/dL Calcium 5.7 L* (8.6-10.4) mg/dl Phosphorus 10.4 H (2.5-4.5) mg/dL Magnesium 2.0 (1.6-2.3) mg/dL Total Bilirubin 5.9 H (0.2-1.3) mg/dL AST 410 H D (17-59) U/L ALT 75 H D (21-72) U/L Alkaline Phosphatase 21 L D (38-126) U/L Ammonia (9-33) umol/L Troponin I (0.00-0.120) ng/mL NT-Pro-B Natriuret Pep (0-450) pg/mL Total Protein 3.5 L (6.3-8.3) g/dL Albumin 1.4 L D (3.5-5.0) g/dL Globulin 2.0 L (2.2-3.9) gm/dL Albumin/Globulin Ratio 0.7 L (1.0-2.1) Triglycerides (0-149) mg/dL Cholesterol (0-199) mg/dL LDL Cholesterol Direct (0-129) mg/dL HDL Cholesterol (30-70) mg/dL Lipase (23-300) U/L Arterial Blood Potassium (3.6-5.2) mmol/L Venous Blood Potassium 5.1 (3.6-5.2) mmol/L Urine Color (YELLOW) Urine Clarity (Clear) Urine pH (5.0-8.0) Ur Specific [place] (1.003-1.030) Urine Protein (NEGATIVE) mg/dL Urine Glucose (UA) (Normal) mg/dL Urine Ketones (NEGATIVE) mg/dL Urine Blood (NEGATIVE) Urine Nitrate (NEGATIVE) Urine Bilirubin (NEGATIVE) Urine Urobilinogen (0.2-1.0) mg/dL Ur Leukocyte Esterase (Negative) Ru/uL Urine WBC (Auto) (0-5) /hpf Urine RBC (Auto) (0-3) /hpf Urine Opiates Screen (NEGATIVE) Urine Methadone Screen (NEGATIVE) Ur Barbiturates Screen (NEGATIVE) Ur Phencyclidine Scrn (NEGATIVE) Ur Amphetamines Screen (NEGATIVE) U Benzodiazepines Scrn (NEGATIVE) U Oth Cocaine Metabols (NEGATIVE) U Cannabinoids Screen (NEGATIVE) Blood Type Antibody Screen 06/19/18 06/19/18 06/18/18 Range/Units 00:30 00:21 23:25 WBC (4.8-10.8) K/uL RBC (4.40-5.90) Mil/uL Hgb (12.0-18.0) g/dL Hct (35.0-51.0) % MCV (80.0-94.0) fL MCH (27.0-31.0) pg MCHC (33.0-37.0) g/dL RDW (11.5-14.5) % Plt Count (130-400) K/uL MPV (7.2-11.7) fL Neut % (Auto) (50.0-75.0) % Lymph % (Auto) (20.0-40.0) % Hardy % (Auto) (0.0-10.0) % Eos % (Auto) (0.0-4.0) % Baso % (Auto) (0.0-2.0) % Neut # (Auto) (1.8-7.0) K/uL Lymph # (Auto) (1.0-4.3) K/uL Hardy # (Auto) (0.0-0.8) K/uL Eos # (Auto) (0.0-0.7) K/uL Baso # (Auto) (0.0-0.2) K/uL Neutrophils % (Manual) (50-75) % Band Neutrophils % (0-2) % Lymphocytes % (Manual) (20-40) % Monocytes % (Manual) (0-10) % Myelocytes % (0-0) % Nucleated RBC % (0-0) % Differential Comment Platelet Estimate (NORMAL) Polychromasia Hypochromasia (manual) Poikilocytosis (manual Anisocytosis (manual) Microcytosis (manual) Macrocytosis (manual) Target Cells Tear Drop Cells Ovalocytes Plush Cells Acanthocytes (Spur) Smear Path Review PT 97.9 H D (9.7-12.2) SECONDS INR 8.9 H* D APTT 184 H* D (21-34) SECONDS Fibrinogen (200-400) mg/dL Puncture Site Lb pCO2 31 L (35-45) mm/Hg pO2 99 (80-100) mm/Hg HCO3 3.6 L* (21-28) mmol/L ABG pH 6.87 L* (7.35-7.45) ABG Total CO2 6.7 L (22-28) mmol/L ABG O2 Saturation 99.5 H (95-98) % ABG Base Excess -27.1 L (-2.0-3.0) mmol/L ABG Hemoglobin (11.7-17.4) g/dL ABG Carboxyhemoglobin (0.5-1.5) % POC ABG HHb (Measured) (0.0-5.0) % ABG Methemoglobin (0.0-3.0) % Jorge Test Na ABG Potassium 5.2 (3.6-5.2) mmol/L VBG pH (7.32-7.43) VBG pCO2 (40-60) mmHg VBG HCO3 mmol/L VBG Total CO2 (22-28) mmol/L VBG O2 Sat (Calc) (40-65) % VBG Base Excess (0.0-2.0) mmol/L VBG Potassium (3.6-5.2) mmol/L A-a O2 Difference 575.0 mm/Hg Respiratory Index 5.8 Hgb O2 Saturation (95.0-98.0) % Glucose 87 (75-110) mg/dl Lactate > 20.0 H* (0.7-2.1) mmol/L Vent Mode Prvc Mechanical Rate 20 FiO2 100.0 % Tidal Volume 550 PEEP 5 Crit Value Called To Dr. reyna Crit Value Called By Sofía cemetery manager Crit Value Read Back Y Blood Gas Notified Time 26 Sodium 133 132.0 (132-148) mmol/L Potassium 5.3 H (3.6-5.2) mmol/L Chloride 102 102.0 (98-107) mmol/L Carbon Dioxide 6 L* (22-30) mmol/L Anion Gap 30 H (10-20) BUN 10 (9-20) mg/dL Creatinine 1.5 (0.8-1.5) mg/dL Est GFR ( Amer) > 60 Est GFR (Non-Af Amer) 52 POC Glucose (mg/dL) (65-110) mg/dL Random Glucose 85 (75-110) mg/dL Calcium 6.5 L (8.6-10.4) mg/dl Phosphorus (2.5-4.5) mg/dL Magnesium (1.6-2.3) mg/dL Total Bilirubin (0.2-1.3) mg/dL AST (17-59) U/L ALT (21-72) U/L Alkaline Phosphatase (38-126) U/L Ammonia (9-33) umol/L Troponin I (0.00-0.120) ng/mL NT-Pro-B Natriuret Pep (0-450) pg/mL Total Protein (6.3-8.3) g/dL Albumin (3.5-5.0) g/dL Globulin (2.2-3.9) gm/dL Albumin/Globulin Ratio (1.0-2.1) Triglycerides (0-149) mg/dL Cholesterol (0-199) mg/dL LDL Cholesterol Direct (0-129) mg/dL HDL Cholesterol (30-70) mg/dL Lipase (23-300) U/L Arterial Blood Potassium 5.2 (3.6-5.2) mmol/L Venous Blood Potassium (3.6-5.2) mmol/L Urine Color (YELLOW) Urine Clarity (Clear) Urine pH (5.0-8.0) Ur Specific [place] (1.003-1.030) Urine Protein (NEGATIVE) mg/dL Urine Glucose (UA) (Normal) mg/dL Urine Ketones (NEGATIVE) mg/dL Urine Blood (NEGATIVE) Urine Nitrate (NEGATIVE) Urine Bilirubin (NEGATIVE) Urine Urobilinogen (0.2-1.0) mg/dL Ur Leukocyte Esterase (Negative) Ru/uL Urine WBC (Auto) (0-5) /hpf Urine RBC (Auto) (0-3) /hpf Urine Opiates Screen (NEGATIVE) Urine Methadone Screen (NEGATIVE) Ur Barbiturates Screen (NEGATIVE) Ur Phencyclidine Scrn (NEGATIVE) Ur Amphetamines Screen (NEGATIVE) U Benzodiazepines Scrn (NEGATIVE) U Oth Cocaine Metabols (NEGATIVE) U Cannabinoids Screen (NEGATIVE) Blood Type Antibody Screen 06/18/18 06/18/18 06/18/18 Range/Units 23:25 21:44 19:02 WBC 15.9 H (4.8-10.8) K/uL RBC 1.12 L (4.40-5.90) Mil/uL Hgb 3.9 L* (12.0-18.0) g/dL Hct 12.3 L (35.0-51.0) % MCV 109.4 H D (80.0-94.0) fL MCH 34.5 H (27.0-31.0) pg MCHC 31.6 L (33.0-37.0) g/dL RDW 25.5 H (11.5-14.5) % Plt Count 13 L* D (130-400) K/uL MPV 11.1 (7.2-11.7) fL Neut % (Auto) 73.6 (50.0-75.0) % Lymph % (Auto) 13.1 L (20.0-40.0) % Hardy % (Auto) 12.2 H (0.0-10.0) % Eos % (Auto) 0.6 (0.0-4.0) % Baso % (Auto) 0.5 (0.0-2.0) % Neut # (Auto) 11.7 H (1.8-7.0) K/uL Lymph # (Auto) 2.1 (1.0-4.3) K/uL Hardy # (Auto) 1.9 H (0.0-0.8) K/uL Eos # (Auto) 0.1 (0.0-0.7) K/uL Baso # (Auto) 0.1 (0.0-0.2) K/uL Neutrophils % (Manual) (50-75) % Band Neutrophils % (0-2) % Lymphocytes % (Manual) (20-40) % Monocytes % (Manual) (0-10) % Myelocytes % (0-0) % Nucleated RBC % (0-0) % Differential Comment Platelet Estimate (NORMAL) Polychromasia Hypochromasia (manual) Poikilocytosis (manual Anisocytosis (manual) Microcytosis (manual) Macrocytosis (manual) Target Cells Tear Drop Cells Ovalocytes Plush Cells Acanthocytes (Spur) Smear Path Review PT (9.7-12.2) SECONDS INR APTT (21-34) SECONDS Fibrinogen < 35 L (200-400) mg/dL Puncture Site pCO2 (35-45) mm/Hg pO2 (80-100) mm/Hg HCO3 (21-28) mmol/L ABG pH (7.35-7.45) ABG Total CO2 (22-28) mmol/L ABG O2 Saturation (95-98) % ABG Base Excess (-2.0-3.0) mmol/L ABG Hemoglobin (11.7-17.4) g/dL ABG Carboxyhemoglobin (0.5-1.5) % POC ABG HHb (Measured) (0.0-5.0) % ABG Methemoglobin (0.0-3.0) % Jorge Test ABG Potassium (3.6-5.2) mmol/L VBG pH (7.32-7.43) VBG pCO2 (40-60) mmHg VBG HCO3 mmol/L VBG Total CO2 (22-28) mmol/L VBG O2 Sat (Calc) (40-65) % VBG Base Excess (0.0-2.0) mmol/L VBG Potassium (3.6-5.2) mmol/L A-a O2 Difference mm/Hg Respiratory Index Hgb O2 Saturation (95.0-98.0) % Glucose (75-110) mg/dl Lactate (0.7-2.1) mmol/L Vent Mode Mechanical Rate FiO2 % Tidal Volume PEEP Crit Value Called To Crit Value Called By Crit Value Read Back Blood Gas Notified Time Sodium (132-148) mmol/L Potassium (3.6-5.2) mmol/L Chloride (98-107) mmol/L Carbon Dioxide (22-30) mmol/L Anion Gap (10-20) BUN (9-20) mg/dL Creatinine (0.8-1.5) mg/dL Est GFR ( Amer) Est GFR (Non-Af Amer) POC Glucose (mg/dL) (65-110) mg/dL Random Glucose (75-110) mg/dL Calcium (8.6-10.4) mg/dl Phosphorus 8.8 H (2.5-4.5) mg/dL Magnesium 2.0 (1.6-2.3) mg/dL Total Bilirubin (0.2-1.3) mg/dL AST (17-59) U/L ALT (21-72) U/L Alkaline Phosphatase (38-126) U/L Ammonia (9-33) umol/L Troponin I (0.00-0.120) ng/mL NT-Pro-B Natriuret Pep (0-450) pg/mL Total Protein (6.3-8.3) g/dL Albumin (3.5-5.0) g/dL Globulin (2.2-3.9) gm/dL Albumin/Globulin Ratio (1.0-2.1) Triglycerides (0-149) mg/dL Cholesterol (0-199) mg/dL LDL Cholesterol Direct (0-129) mg/dL HDL Cholesterol (30-70) mg/dL Lipase (23-300) U/L Arterial Blood Potassium (3.6-5.2) mmol/L Venous Blood Potassium (3.6-5.2) mmol/L Urine Color (YELLOW) Urine Clarity (Clear) Urine pH (5.0-8.0) Ur Specific [place] (1.003-1.030) Urine Protein (NEGATIVE) mg/dL Urine Glucose (UA) (Normal) mg/dL Urine Ketones (NEGATIVE) mg/dL Urine Blood (NEGATIVE) Urine Nitrate (NEGATIVE) Urine Bilirubin (NEGATIVE) Urine Urobilinogen (0.2-1.0) mg/dL Ur Leukocyte Esterase (Negative) Ru/uL Urine WBC (Auto) (0-5) /hpf Urine RBC (Auto) (0-3) /hpf Urine Opiates Screen (NEGATIVE) Urine Methadone Screen (NEGATIVE) Ur Barbiturates Screen (NEGATIVE) Ur Phencyclidine Scrn (NEGATIVE) Ur Amphetamines Screen (NEGATIVE) U Benzodiazepines Scrn (NEGATIVE) U Oth Cocaine Metabols (NEGATIVE) U Cannabinoids Screen (NEGATIVE) Blood Type Antibody Screen 06/18/18 06/18/18 06/18/18 Range/Units 19:00 18:30 18:30 WBC (4.8-10.8) K/uL RBC (4.40-5.90) Mil/uL Hgb (12.0-18.0) g/dL Hct (35.0-51.0) % MCV (80.0-94.0) fL MCH (27.0-31.0) pg MCHC (33.0-37.0) g/dL RDW (11.5-14.5) % Plt Count (130-400) K/uL MPV (7.2-11.7) fL Neut % (Auto) (50.0-75.0) % Lymph % (Auto) (20.0-40.0) % Hardy % (Auto) (0.0-10.0) % Eos % (Auto) (0.0-4.0) % Baso % (Auto) (0.0-2.0) % Neut # (Auto) (1.8-7.0) K/uL Lymph # (Auto) (1.0-4.3) K/uL Hardy # (Auto) (0.0-0.8) K/uL Eos # (Auto) (0.0-0.7) K/uL Baso # (Auto) (0.0-0.2) K/uL Neutrophils % (Manual) (50-75) % Band Neutrophils % (0-2) % Lymphocytes % (Manual) (20-40) % Monocytes % (Manual) (0-10) % Myelocytes % (0-0) % Nucleated RBC % (0-0) % Differential Comment Platelet Estimate (NORMAL) Polychromasia Hypochromasia (manual) Poikilocytosis (manual Anisocytosis (manual) Microcytosis (manual) Macrocytosis (manual) Target Cells Tear Drop Cells Ovalocytes Plush Cells Acanthocytes (Spur) Smear Path Review PT (9.7-12.2) SECONDS INR APTT (21-34) SECONDS Fibrinogen (200-400) mg/dL Puncture Site Rba pCO2 30 L (35-45) mm/Hg pO2 233 H (80-100) mm/Hg HCO3 6.9 L* (21-28) mmol/L ABG pH 6.93 L* (7.35-7.45) ABG Total CO2 7.2 L (22-28) mmol/L ABG O2 Saturation 101.9 H (95-98) % ABG Base Excess -23.2 L (-2.0-3.0) mmol/L ABG Hemoglobin 3.3 L (11.7-17.4) g/dL ABG Carboxyhemoglobin 5.2 H (0.5-1.5) % POC ABG HHb (Measured) -1.8 L (0.0-5.0) % ABG Methemoglobin 2.4 (0.0-3.0) % Jorge Test Na ABG Potassium (3.6-5.2) mmol/L VBG pH (7.32-7.43) VBG pCO2 (40-60) mmHg VBG HCO3 mmol/L VBG Total CO2 (22-28) mmol/L VBG O2 Sat (Calc) (40-65) % VBG Base Excess (0.0-2.0) mmol/L VBG Potassium (3.6-5.2) mmol/L A-a O2 Difference 443.0 mm/Hg Respiratory Index 1.9 Hgb O2 Saturation 94.3 L (95.0-98.0) % Glucose (75-110) mg/dl Lactate (0.7-2.1) mmol/L Vent Mode Prvc Mechanical Rate 18 FiO2 100.0 % Tidal Volume 550 PEEP 6 Crit Value Called To Er nurse vance Crit Value Called By Edie hood Crit Value Read Back Y Blood Gas Notified Time 1905 Sodium (132-148) mmol/L Potassium (3.6-5.2) mmol/L Chloride (98-107) mmol/L Carbon Dioxide (22-30) mmol/L Anion Gap (10-20) BUN (9-20) mg/dL Creatinine (0.8-1.5) mg/dL Est GFR ( Amer) Est GFR (Non-Af Amer) POC Glucose (mg/dL) (65-110) mg/dL Random Glucose (75-110) mg/dL Calcium (8.6-10.4) mg/dl Phosphorus (2.5-4.5) mg/dL Magnesium (1.6-2.3) mg/dL Total Bilirubin (0.2-1.3) mg/dL AST (17-59) U/L ALT (21-72) U/L Alkaline Phosphatase (38-126) U/L Ammonia (9-33) umol/L Troponin I (0.00-0.120) ng/mL NT-Pro-B Natriuret Pep (0-450) pg/mL Total Protein (6.3-8.3) g/dL Albumin (3.5-5.0) g/dL Globulin (2.2-3.9) gm/dL Albumin/Globulin Ratio (1.0-2.1) Triglycerides (0-149) mg/dL Cholesterol (0-199) mg/dL LDL Cholesterol Direct (0-129) mg/dL HDL Cholesterol (30-70) mg/dL Lipase (23-300) U/L Arterial Blood Potassium (3.6-5.2) mmol/L Venous Blood Potassium (3.6-5.2) mmol/L Urine Color Shahana (YELLOW) Urine Clarity Hazy (Clear) Urine pH 5.0 (5.0-8.0) Ur Specific [place] 1.015 (1.003-1.030) Urine Protein 1+ H (NEGATIVE) mg/dL Urine Glucose (UA) Normal (Normal) mg/dL Urine Ketones Negative (NEGATIVE) mg/dL Urine Blood 1+ H (NEGATIVE) Urine Nitrate Negative (NEGATIVE) Urine Bilirubin 1+ H (NEGATIVE) Urine Urobilinogen 4.0 (0.2-1.0) mg/dL Ur Leukocyte Esterase Neg (Negative) Ru/uL Urine WBC (Auto) < 1 (0-5) /hpf Urine RBC (Auto) < 1 (0-3) /hpf Urine Opiates Screen Negative (NEGATIVE) Urine Methadone Screen Negative (NEGATIVE) Ur Barbiturates Screen Negative (NEGATIVE) Ur Phencyclidine Scrn Negative (NEGATIVE) Ur Amphetamines Screen Negative (NEGATIVE) U Benzodiazepines Scrn Negative (NEGATIVE) U Oth Cocaine Metabols Negative (NEGATIVE) U Cannabinoids Screen Negative (NEGATIVE) Blood Type Antibody Screen 06/18/18 06/18/18 06/18/18 Range/Units 18:29 18:15 18:15 WBC (4.8-10.8) K/uL RBC (4.40-5.90) Mil/uL Hgb (12.0-18.0) g/dL Hct (35.0-51.0) % MCV (80.0-94.0) fL MCH (27.0-31.0) pg MCHC (33.0-37.0) g/dL RDW (11.5-14.5) % Plt Count (130-400) K/uL MPV (7.2-11.7) fL Neut % (Auto) (50.0-75.0) % Lymph % (Auto) (20.0-40.0) % Hardy % (Auto) (0.0-10.0) % Eos % (Auto) (0.0-4.0) % Baso % (Auto) (0.0-2.0) % Neut # (Auto) (1.8-7.0) K/uL Lymph # (Auto) (1.0-4.3) K/uL Hardy # (Auto) (0.0-0.8) K/uL Eos # (Auto) (0.0-0.7) K/uL Baso # (Auto) (0.0-0.2) K/uL Neutrophils % (Manual) (50-75) % Band Neutrophils % (0-2) % Lymphocytes % (Manual) (20-40) % Monocytes % (Manual) (0-10) % Myelocytes % (0-0) % Nucleated RBC % (0-0) % Differential Comment Platelet Estimate (NORMAL) Polychromasia Hypochromasia (manual) Poikilocytosis (manual Anisocytosis (manual) Microcytosis (manual) Macrocytosis (manual) Target Cells Tear Drop Cells Ovalocytes Luis Cells Acanthocytes (Spur) Smear Path Review PT (9.7-12.2) SECONDS INR APTT (21-34) SECONDS Fibrinogen (200-400) mg/dL Puncture Site pCO2 (35-45) mm/Hg pO2 (80-100) mm/Hg HCO3 (21-28) mmol/L ABG pH (7.35-7.45) ABG Total CO2 (22-28) mmol/L ABG O2 Saturation (95-98) % ABG Base Excess (-2.0-3.0) mmol/L ABG Hemoglobin (11.7-17.4) g/dL ABG Carboxyhemoglobin (0.5-1.5) % POC ABG HHb (Measured) (0.0-5.0) % ABG Methemoglobin (0.0-3.0) % Jorge Test ABG Potassium (3.6-5.2) mmol/L VBG pH (7.32-7.43) VBG pCO2 (40-60) mmHg VBG HCO3 mmol/L VBG Total CO2 (22-28) mmol/L VBG O2 Sat (Calc) (40-65) % VBG Base Excess (0.0-2.0) mmol/L VBG Potassium (3.6-5.2) mmol/L A-a O2 Difference mm/Hg Respiratory Index Hgb O2 Saturation (95.0-98.0) % Glucose (75-110) mg/dl Lactate (0.7-2.1) mmol/L Vent Mode Mechanical Rate FiO2 % Tidal Volume PEEP Crit Value Called To Crit Value Called By Crit Value Read Back Blood Gas Notified Time Sodium (132-148) mmol/L Potassium (3.6-5.2) mmol/L Chloride (98-107) mmol/L Carbon Dioxide (22-30) mmol/L Anion Gap (10-20) BUN (9-20) mg/dL Creatinine (0.8-1.5) mg/dL Est GFR ( Amer) Est GFR (Non-Af Amer) POC Glucose (mg/dL) 118 H (65-110) mg/dL Random Glucose (75-110) mg/dL Calcium (8.6-10.4) mg/dl Phosphorus (2.5-4.5) mg/dL Magnesium (1.6-2.3) mg/dL Total Bilirubin (0.2-1.3) mg/dL AST (17-59) U/L ALT (21-72) U/L Alkaline Phosphatase (38-126) U/L Ammonia 235 H D (9-33) umol/L Troponin I (0.00-0.120) ng/mL NT-Pro-B Natriuret Pep (0-450) pg/mL Total Protein (6.3-8.3) g/dL Albumin (3.5-5.0) g/dL Globulin (2.2-3.9) gm/dL Albumin/Globulin Ratio (1.0-2.1) Triglycerides (0-149) mg/dL Cholesterol (0-199) mg/dL LDL Cholesterol Direct (0-129) mg/dL HDL Cholesterol (30-70) mg/dL Lipase (23-300) U/L Arterial Blood Potassium (3.6-5.2) mmol/L Venous Blood Potassium (3.6-5.2) mmol/L Urine Color (YELLOW) Urine Clarity (Clear) Urine pH (5.0-8.0) Ur Specific [place] (1.003-1.030) Urine Protein (NEGATIVE) mg/dL Urine Glucose (UA) (Normal) mg/dL Urine Ketones (NEGATIVE) mg/dL Urine Blood (NEGATIVE) Urine Nitrate (NEGATIVE) Urine Bilirubin (NEGATIVE) Urine Urobilinogen (0.2-1.0) mg/dL Ur Leukocyte Esterase (Negative) Ru/uL Urine WBC (Auto) (0-5) /hpf Urine RBC (Auto) (0-3) /hpf Urine Opiates Screen (NEGATIVE) Urine Methadone Screen (NEGATIVE) Ur Barbiturates Screen (NEGATIVE) Ur Phencyclidine Scrn (NEGATIVE) Ur Amphetamines Screen (NEGATIVE) U Benzodiazepines Scrn (NEGATIVE) U Oth Cocaine Metabols (NEGATIVE) U Cannabinoids Screen (NEGATIVE) Blood Type B NEGATIVE Antibody Screen Negative 06/18/18 06/18/18 06/18/18 Range/Units 18:15 18:15 18:15 WBC 12.2 H (4.8-10.8) K/uL RBC 0.88 L (4.40-5.90) Mil/uL Hgb 3.4 L* D (12.0-18.0) g/dL Hct 11.5 L (35.0-51.0) % MCV 130.3 H D (80.0-94.0) fL MCH 38.7 H (27.0-31.0) pg MCHC 29.7 L (33.0-37.0) g/dL RDW 19.2 H (11.5-14.5) % Plt Count 57 L (130-400) K/uL MPV 8.3 (7.2-11.7) fL Neut % (Auto) 73.1 (50.0-75.0) % Lymph % (Auto) 10.0 L (20.0-40.0) % Hardy % (Auto) 15.8 H (0.0-10.0) % Eos % (Auto) 0.2 (0.0-4.0) % Baso % (Auto) 0.9 (0.0-2.0) % Neut # (Auto) 8.9 H (1.8-7.0) K/uL Lymph # (Auto) 1.2 (1.0-4.3) K/uL Hardy # (Auto) 1.9 H (0.0-0.8) K/uL Eos # (Auto) 0.0 (0.0-0.7) K/uL Baso # (Auto) 0.1 (0.0-0.2) K/uL Neutrophils % (Manual) 63 (50-75) % Band Neutrophils % 9 H (0-2) % Lymphocytes % (Manual) 14 L (20-40) % Monocytes % (Manual) 9 (0-10) % Myelocytes % 5 H (0-0) % Nucleated RBC % 6 H (0-0) % Differential Comment Platelet Estimate Decreased L (NORMAL) Polychromasia Slight Hypochromasia (manual) Marked Poikilocytosis (manual Moderate Anisocytosis (manual) Moderate Microcytosis (manual) Moderate Macrocytosis (manual) Moderate Target Cells Slight Tear Drop Cells Slight Ovalocytes Slight Plush Cells Moderate Acanthocytes (Spur) Moderate Smear Path Review PT 64.3 H (9.7-12.2) SECONDS INR 5.8 H* APTT 97 H (21-34) SECONDS Fibrinogen (200-400) mg/dL Puncture Site pCO2 (35-45) mm/Hg pO2 (80-100) mm/Hg HCO3 (21-28) mmol/L ABG pH (7.35-7.45) ABG Total CO2 (22-28) mmol/L ABG O2 Saturation (95-98) % ABG Base Excess (-2.0-3.0) mmol/L ABG Hemoglobin (11.7-17.4) g/dL ABG Carboxyhemoglobin (0.5-1.5) % POC ABG HHb (Measured) (0.0-5.0) % ABG Methemoglobin (0.0-3.0) % Jorge Test ABG Potassium (3.6-5.2) mmol/L VBG pH (7.32-7.43) VBG pCO2 (40-60) mmHg VBG HCO3 mmol/L VBG Total CO2 (22-28) mmol/L VBG O2 Sat (Calc) (40-65) % VBG Base Excess (0.0-2.0) mmol/L VBG Potassium (3.6-5.2) mmol/L A-a O2 Difference mm/Hg Respiratory Index Hgb O2 Saturation (95.0-98.0) % Glucose (75-110) mg/dl Lactate (0.7-2.1) mmol/L Vent Mode Mechanical Rate FiO2 % Tidal Volume PEEP Crit Value Called To Crit Value Called By Crit Value Read Back Blood Gas Notified Time Sodium 132 (132-148) mmol/L Potassium 4.5 (3.6-5.2) mmol/L Chloride 101 (98-107) mmol/L Carbon Dioxide 7 L* D (22-30) mmol/L Anion Gap 28 H (10-20) BUN 9 (9-20) mg/dL Creatinine 1.2 (0.8-1.5) mg/dL Est GFR ( Amer) > 60 Est GFR (Non-Af Amer) > 60 POC Glucose (mg/dL) (65-110) mg/dL Random Glucose 63 L (75-110) mg/dL Calcium 7.4 L (8.6-10.4) mg/dl Phosphorus (2.5-4.5) mg/dL Magnesium (1.6-2.3) mg/dL Total Bilirubin 11.8 H (0.2-1.3) mg/dL AST 129 H (17-59) U/L ALT 24 (21-72) U/L Alkaline Phosphatase 76 (38-126) U/L Ammonia (9-33) umol/L Troponin I 0.0860 (0.00-0.120) ng/mL NT-Pro-B Natriuret Pep 1730 H (0-450) pg/mL Total Protein 6.3 (6.3-8.3) g/dL Albumin 2.4 L D (3.5-5.0) g/dL Globulin 3.9 (2.2-3.9) gm/dL Albumin/Globulin Ratio 0.6 L (1.0-2.1) Triglycerides 92 (0-149) mg/dL Cholesterol 127 (0-199) mg/dL LDL Cholesterol Direct < 30 (0-129) mg/dL HDL Cholesterol 41 (30-70) mg/dL Lipase 160 (23-300) U/L Arterial Blood Potassium (3.6-5.2) mmol/L Venous Blood Potassium (3.6-5.2) mmol/L Urine Color (YELLOW) Urine Clarity (Clear) Urine pH (5.0-8.0) Ur Specific [place] (1.003-1.030) Urine Protein (NEGATIVE) mg/dL Urine Glucose (UA) (Normal) mg/dL Urine Ketones (NEGATIVE) mg/dL Urine Blood (NEGATIVE) Urine Nitrate (NEGATIVE) Urine Bilirubin (NEGATIVE) Urine Urobilinogen (0.2-1.0) mg/dL Ur Leukocyte Esterase (Negative) Ru/uL Urine WBC (Auto) (0-5) /hpf Urine RBC (Auto) (0-3) /hpf Urine Opiates Screen (NEGATIVE) Urine Methadone Screen (NEGATIVE) Ur Barbiturates Screen (NEGATIVE) Ur Phencyclidine Scrn (NEGATIVE) Ur Amphetamines Screen (NEGATIVE) U Benzodiazepines Scrn (NEGATIVE) U Oth Cocaine Metabols (NEGATIVE) U Cannabinoids Screen (NEGATIVE) Blood Type Antibody Screen 06/18/18 Range/Units 18:05 WBC (4.8-10.8) K/uL RBC (4.40-5.90) Mil/uL Hgb (12.0-18.0) g/dL Hct (35.0-51.0) % MCV (80.0-94.0) fL MCH (27.0-31.0) pg MCHC (33.0-37.0) g/dL RDW (11.5-14.5) % Plt Count (130-400) K/uL MPV (7.2-11.7) fL Neut % (Auto) (50.0-75.0) % Lymph % (Auto) (20.0-40.0) % Hardy % (Auto) (0.0-10.0) % Eos % (Auto) (0.0-4.0) % Baso % (Auto) (0.0-2.0) % Neut # (Auto) (1.8-7.0) K/uL Lymph # (Auto) (1.0-4.3) K/uL Hardy # (Auto) (0.0-0.8) K/uL Eos # (Auto) (0.0-0.7) K/uL Baso # (Auto) (0.0-0.2) K/uL Neutrophils % (Manual) (50-75) % Band Neutrophils % (0-2) % Lymphocytes % (Manual) (20-40) % Monocytes % (Manual) (0-10) % Myelocytes % (0-0) % Nucleated RBC % (0-0) % Differential Comment Platelet Estimate (NORMAL) Polychromasia Hypochromasia (manual) Poikilocytosis (manual Anisocytosis (manual) Microcytosis (manual) Macrocytosis (manual) Target Cells Tear Drop Cells Ovalocytes Luis Cells Acanthocytes (Spur) Smear Path Review PT (9.7-12.2) SECONDS INR APTT (21-34) SECONDS Fibrinogen (200-400) mg/dL Puncture Site pCO2 (35-45) mm/Hg pO2 (80-100) mm/Hg HCO3 (21-28) mmol/L ABG pH (7.35-7.45) ABG Total CO2 (22-28) mmol/L ABG O2 Saturation (95-98) % ABG Base Excess (-2.0-3.0) mmol/L ABG Hemoglobin (11.7-17.4) g/dL ABG Carboxyhemoglobin (0.5-1.5) % POC ABG HHb (Measured) (0.0-5.0) % ABG Methemoglobin (0.0-3.0) % Jorge Test ABG Potassium (3.6-5.2) mmol/L VBG pH (7.32-7.43) VBG pCO2 (40-60) mmHg VBG HCO3 mmol/L VBG Total CO2 (22-28) mmol/L VBG O2 Sat (Calc) (40-65) % VBG Base Excess (0.0-2.0) mmol/L VBG Potassium (3.6-5.2) mmol/L A-a O2 Difference mm/Hg Respiratory Index Hgb O2 Saturation (95.0-98.0) % Glucose (75-110) mg/dl Lactate (0.7-2.1) mmol/L Vent Mode Mechanical Rate FiO2 % Tidal Volume PEEP Crit Value Called To Crit Value Called By Crit Value Read Back Blood Gas Notified Time Sodium (132-148) mmol/L Potassium (3.6-5.2) mmol/L Chloride (98-107) mmol/L Carbon Dioxide (22-30) mmol/L Anion Gap (10-20) BUN (9-20) mg/dL Creatinine (0.8-1.5) mg/dL Est GFR ( Amer) Est GFR (Non-Af Amer) POC Glucose (mg/dL) 65 (65-110) mg/dL Random Glucose (75-110) mg/dL Calcium (8.6-10.4) mg/dl Phosphorus (2.5-4.5) mg/dL Magnesium (1.6-2.3) mg/dL Total Bilirubin (0.2-1.3) mg/dL AST (17-59) U/L ALT (21-72) U/L Alkaline Phosphatase (38-126) U/L Ammonia (9-33) umol/L Troponin I (0.00-0.120) ng/mL NT-Pro-B Natriuret Pep (0-450) pg/mL Total Protein (6.3-8.3) g/dL Albumin (3.5-5.0) g/dL Globulin (2.2-3.9) gm/dL Albumin/Globulin Ratio (1.0-2.1) Triglycerides (0-149) mg/dL Cholesterol (0-199) mg/dL LDL Cholesterol Direct (0-129) mg/dL HDL Cholesterol (30-70) mg/dL Lipase (23-300) U/L Arterial Blood Potassium (3.6-5.2) mmol/L Venous Blood Potassium (3.6-5.2) mmol/L Urine Color (YELLOW) Urine Clarity (Clear) Urine pH (5.0-8.0) Ur Specific [place] (1.003-1.030) Urine Protein (NEGATIVE) mg/dL Urine Glucose (UA) (Normal) mg/dL Urine Ketones (NEGATIVE) mg/dL Urine Blood (NEGATIVE) Urine Nitrate (NEGATIVE) Urine Bilirubin (NEGATIVE) Urine Urobilinogen (0.2-1.0) mg/dL Ur Leukocyte Esterase (Negative) Ru/uL Urine WBC (Auto) (0-5) /hpf Urine RBC (Auto) (0-3) /hpf Urine Opiates Screen (NEGATIVE) Urine Methadone Screen (NEGATIVE) Ur Barbiturates Screen (NEGATIVE) Ur Phencyclidine Scrn (NEGATIVE) Ur Amphetamines Screen (NEGATIVE) U Benzodiazepines Scrn (NEGATIVE) U Oth Cocaine Metabols (NEGATIVE) U Cannabinoids Screen (NEGATIVE) Blood Type Antibody Screen Laboratory Results - last 24 hr 06/18/18 06/18/18 06/18/18 18:05 18:15 18:15 WBC 12.2 H RBC 0.88 L Hgb 3.4 L* D Hct 11.5 L MCV 130.3 H D MCH 38.7 H MCHC 29.7 L RDW 19.2 H Plt Count 57 L MPV 8.3 Neut % (Auto) 73.1 Lymph % (Auto) 10.0 L Hardy % (Auto) 15.8 H Eos % (Auto) 0.2 Baso % (Auto) 0.9 Neut # (Auto) 8.9 H Lymph # (Auto) 1.2 Hardy # (Auto) 1.9 H Eos # (Auto) 0.0 Baso # (Auto) 0.1 Neutrophils % (Manual) 63 Band Neutrophils % 9 H Lymphocytes % (Manual) 14 L Monocytes % (Manual) 9 Myelocytes % 5 H Nucleated RBC % 6 H Differential Comment Platelet Estimate Decreased L Polychromasia Slight Hypochromasia (manual) Marked Poikilocytosis (manual Moderate Anisocytosis (manual) Moderate Microcytosis (manual) Moderate Macrocytosis (manual) Moderate Target Cells Slight Tear Drop Cells Slight Ovalocytes Slight Luis Cells Moderate Acanthocytes (Spur) Moderate Smear Path Review PT 64.3 H INR 5.8 H* APTT 97 H Fibrinogen Puncture Site pCO2 pO2 HCO3 ABG pH ABG Total CO2 ABG O2 Saturation ABG Base Excess ABG Hemoglobin ABG Carboxyhemoglobin POC ABG HHb (Measured) ABG Methemoglobin Jorge Test ABG Potassium VBG pH VBG pCO2 VBG HCO3 VBG Total CO2 VBG O2 Sat (Calc) VBG Base Excess VBG Potassium A-a O2 Difference Respiratory Index Hgb O2 Saturation Glucose Lactate Vent Mode Mechanical Rate FiO2 Tidal Volume PEEP Crit Value Called To Crit Value Called By Crit Value Read Back Blood Gas Notified Time Sodium Potassium Chloride Carbon Dioxide Anion Gap BUN Creatinine Est GFR ( Amer) Est GFR (Non-Af Amer) POC Glucose (mg/dL) 65 Random Glucose Calcium Phosphorus Magnesium Total Bilirubin AST ALT Alkaline Phosphatase Ammonia Troponin I NT-Pro-B Natriuret Pep Total Protein Albumin Globulin Albumin/Globulin Ratio Triglycerides Cholesterol LDL Cholesterol Direct HDL Cholesterol Lipase Arterial Blood Potassium Venous Blood Potassium Urine Color Urine Clarity Urine pH Ur Specific [place] Urine Protein Urine Glucose (UA) Urine Ketones Urine Blood Urine Nitrate Urine Bilirubin Urine Urobilinogen Ur Leukocyte Esterase Urine WBC (Auto) Urine RBC (Auto) Urine Opiates Screen Urine Methadone Screen Ur Barbiturates Screen Ur Phencyclidine Scrn Ur Amphetamines Screen U Benzodiazepines Scrn U Oth Cocaine Metabols U Cannabinoids Screen Blood Type Antibody Screen 06/18/18 06/18/18 06/18/18 18:15 18:15 18:15 WBC RBC Hgb Hct MCV MCH MCHC RDW Plt Count MPV Neut % (Auto) Lymph % (Auto) Hardy % (Auto) Eos % (Auto) Baso % (Auto) Neut # (Auto) Lymph # (Auto) Hardy # (Auto) Eos # (Auto) Baso # (Auto) Neutrophils % (Manual) Band Neutrophils % Lymphocytes % (Manual) Monocytes % (Manual) Myelocytes % Nucleated RBC % Differential Comment Platelet Estimate Polychromasia Hypochromasia (manual) Poikilocytosis (manual Anisocytosis (manual) Microcytosis (manual) Macrocytosis (manual) Target Cells Tear Drop Cells Ovalocytes Luis Cells Acanthocytes (Spur) Smear Path Review PT INR APTT Fibrinogen Puncture Site pCO2 pO2 HCO3 ABG pH ABG Total CO2 ABG O2 Saturation ABG Base Excess ABG Hemoglobin ABG Carboxyhemoglobin POC ABG HHb (Measured) ABG Methemoglobin Jorge Test ABG Potassium VBG pH VBG pCO2 VBG HCO3 VBG Total CO2 VBG O2 Sat (Calc) VBG Base Excess VBG Potassium A-a O2 Difference Respiratory Index Hgb O2 Saturation Glucose Lactate Vent Mode Mechanical Rate FiO2 Tidal Volume PEEP Crit Value Called To Crit Value Called By Crit Value Read Back Blood Gas Notified Time Sodium 132 Potassium 4.5 Chloride 101 Carbon Dioxide 7 L* D Anion Gap 28 H BUN 9 Creatinine 1.2 Est GFR ( Amer) > 60 Est GFR (Non-Af Amer) > 60 POC Glucose (mg/dL) Random Glucose 63 L Calcium 7.4 L Phosphorus Magnesium Total Bilirubin 11.8 H AST 129 H ALT 24 Alkaline Phosphatase 76 Ammonia 235 H D Troponin I 0.0860 NT-Pro-B Natriuret Pep 1730 H Total Protein 6.3 Albumin 2.4 L D Globulin 3.9 Albumin/Globulin Ratio 0.6 L Triglycerides 92 Cholesterol 127 LDL Cholesterol Direct < 30 HDL Cholesterol 41 Lipase 160 Arterial Blood Potassium Venous Blood Potassium Urine Color Urine Clarity Urine pH Ur Specific [place] Urine Protein Urine Glucose (UA) Urine Ketones Urine Blood Urine Nitrate Urine Bilirubin Urine Urobilinogen Ur Leukocyte Esterase Urine WBC (Auto) Urine RBC (Auto) Urine Opiates Screen Urine Methadone Screen Ur Barbiturates Screen Ur Phencyclidine Scrn Ur Amphetamines Screen U Benzodiazepines Scrn U Oth Cocaine Metabols U Cannabinoids Screen Blood Type B NEGATIVE Antibody Screen Negative 06/18/18 06/18/18 06/18/18 18:29 18:30 18:30 WBC RBC Hgb Hct MCV MCH MCHC RDW Plt Count MPV Neut % (Auto) Lymph % (Auto) Hardy % (Auto) Eos % (Auto) Baso % (Auto) Neut # (Auto) Lymph # (Auto) Hardy # (Auto) Eos # (Auto) Baso # (Auto) Neutrophils % (Manual) Band Neutrophils % Lymphocytes % (Manual) Monocytes % (Manual) Myelocytes % Nucleated RBC % Differential Comment Platelet Estimate Polychromasia Hypochromasia (manual) Poikilocytosis (manual Anisocytosis (manual) Microcytosis (manual) Macrocytosis (manual) Target Cells Tear Drop Cells Ovalocytes Luis Cells Acanthocytes (Spur) Smear Path Review PT INR APTT Fibrinogen Puncture Site pCO2 pO2 HCO3 ABG pH ABG Total CO2 ABG O2 Saturation ABG Base Excess ABG Hemoglobin ABG Carboxyhemoglobin POC ABG HHb (Measured) ABG Methemoglobin Jorge Test ABG Potassium VBG pH VBG pCO2 VBG HCO3 VBG Total CO2 VBG O2 Sat (Calc) VBG Base Excess VBG Potassium A-a O2 Difference Respiratory Index Hgb O2 Saturation Glucose Lactate Vent Mode Mechanical Rate FiO2 Tidal Volume PEEP Crit Value Called To Crit Value Called By Crit Value Read Back Blood Gas Notified Time Sodium Potassium Chloride Carbon Dioxide Anion Gap BUN Creatinine Est GFR ( Amer) Est GFR (Non-Af Amer) POC Glucose (mg/dL) 118 H Random Glucose Calcium Phosphorus Magnesium Total Bilirubin AST ALT Alkaline Phosphatase Ammonia Troponin I NT-Pro-B Natriuret Pep Total Protein Albumin Globulin Albumin/Globulin Ratio Triglycerides Cholesterol LDL Cholesterol Direct HDL Cholesterol Lipase Arterial Blood Potassium Venous Blood Potassium Urine Color Shahana Urine Clarity Hazy Urine pH 5.0 Ur Specific [place] 1.015 Urine Protein 1+ H Urine Glucose (UA) Normal Urine Ketones Negative Urine Blood 1+ H Urine Nitrate Negative Urine Bilirubin 1+ H Urine Urobilinogen 4.0 Ur Leukocyte Esterase Neg Urine WBC (Auto) < 1 Urine RBC (Auto) < 1 Urine Opiates Screen Negative Urine Methadone Screen Negative Ur Barbiturates Screen Negative Ur Phencyclidine Scrn Negative Ur Amphetamines Screen Negative U Benzodiazepines Scrn Negative U Oth Cocaine Metabols Negative U Cannabinoids Screen Negative Blood Type Antibody Screen 06/18/18 06/18/18 06/18/18 19:00 19:02 21:44 WBC RBC Hgb Hct MCV MCH MCHC RDW Plt Count MPV Neut % (Auto) Lymph % (Auto) Hardy % (Auto) Eos % (Auto) Baso % (Auto) Neut # (Auto) Lymph # (Auto) Hardy # (Auto) Eos # (Auto) Baso # (Auto) Neutrophils % (Manual) Band Neutrophils % Lymphocytes % (Manual) Monocytes % (Manual) Myelocytes % Nucleated RBC % Differential Comment Platelet Estimate Polychromasia Hypochromasia (manual) Poikilocytosis (manual Anisocytosis (manual) Microcytosis (manual) Macrocytosis (manual) Target Cells Tear Drop Cells Ovalocytes Plush Cells Acanthocytes (Spur) Smear Path Review PT INR APTT Fibrinogen < 35 L Puncture Site Rba pCO2 30 L pO2 233 H HCO3 6.9 L* ABG pH 6.93 L* ABG Total CO2 7.2 L ABG O2 Saturation 101.9 H ABG Base Excess -23.2 L ABG Hemoglobin 3.3 L ABG Carboxyhemoglobin 5.2 H POC ABG HHb (Measured) -1.8 L ABG Methemoglobin 2.4 Jorge Test Na ABG Potassium VBG pH VBG pCO2 VBG HCO3 VBG Total CO2 VBG O2 Sat (Calc) VBG Base Excess VBG Potassium A-a O2 Difference 443.0 Respiratory Index 1.9 Hgb O2 Saturation 94.3 L Glucose Lactate Vent Mode Prvc Mechanical Rate 18 FiO2 100.0 Tidal Volume 550 PEEP 6 Crit Value Called To Er nurse vance Crit Value Called By Edie rt Crit Value Read Back Y Blood Gas Notified Time 1905 Sodium Potassium Chloride Carbon Dioxide Anion Gap BUN Creatinine Est GFR ( Amer) Est GFR (Non-Af Amer) POC Glucose (mg/dL) Random Glucose Calcium Phosphorus 8.8 H Magnesium 2.0 Total Bilirubin AST ALT Alkaline Phosphatase Ammonia Troponin I NT-Pro-B Natriuret Pep Total Protein Albumin Globulin Albumin/Globulin Ratio Triglycerides Cholesterol LDL Cholesterol Direct HDL Cholesterol Lipase Arterial Blood Potassium Venous Blood Potassium Urine Color Urine Clarity Urine pH Ur Specific [place] Urine Protein Urine Glucose (UA) Urine Ketones Urine Blood Urine Nitrate Urine Bilirubin Urine Urobilinogen Ur Leukocyte Esterase Urine WBC (Auto) Urine RBC (Auto) Urine Opiates Screen Urine Methadone Screen Ur Barbiturates Screen Ur Phencyclidine Scrn Ur Amphetamines Screen U Benzodiazepines Scrn U Oth Cocaine Metabols U Cannabinoids Screen Blood Type Antibody Screen 06/18/18 06/18/18 06/19/18 23:25 23:25 00:21 WBC 15.9 H RBC 1.12 L Hgb 3.9 L* Hct 12.3 L MCV 109.4 H D MCH 34.5 H MCHC 31.6 L RDW 25.5 H Plt Count 13 L* D MPV 11.1 Neut % (Auto) 73.6 Lymph % (Auto) 13.1 L Hardy % (Auto) 12.2 H Eos % (Auto) 0.6 Baso % (Auto) 0.5 Neut # (Auto) 11.7 H Lymph # (Auto) 2.1 Hardy # (Auto) 1.9 H Eos # (Auto) 0.1 Baso # (Auto) 0.1 Neutrophils % (Manual) Band Neutrophils % Lymphocytes % (Manual) Monocytes % (Manual) Myelocytes % Nucleated RBC % Differential Comment Platelet Estimate Polychromasia Hypochromasia (manual) Poikilocytosis (manual Anisocytosis (manual) Microcytosis (manual) Macrocytosis (manual) Target Cells Tear Drop Cells Ovalocytes Luis Cells Acanthocytes (Spur) Smear Path Review PT 97.9 H D INR 8.9 H* D APTT 184 H* D Fibrinogen Puncture Site Lb pCO2 31 L pO2 99 HCO3 3.6 L* ABG pH 6.87 L* ABG Total CO2 6.7 L ABG O2 Saturation 99.5 H ABG Base Excess -27.1 L ABG Hemoglobin ABG Carboxyhemoglobin POC ABG HHb (Measured) ABG Methemoglobin Jorge Test Na ABG Potassium 5.2 VBG pH VBG pCO2 VBG HCO3 VBG Total CO2 VBG O2 Sat (Calc) VBG Base Excess VBG Potassium A-a O2 Difference 575.0 Respiratory Index 5.8 Hgb O2 Saturation Glucose 87 Lactate > 20.0 H* Vent Mode Prvc Mechanical Rate 20 FiO2 100.0 Tidal Volume 550 PEEP 5 Crit Value Called To Dr. reyna Crit Value Called By Sofía cemetery manager Crit Value Read Back Y Blood Gas Notified Time 26 Sodium 132.0 Potassium Chloride 102.0 Carbon Dioxide Anion Gap BUN Creatinine Est GFR ( Amer) Est GFR (Non-Af Amer) POC Glucose (mg/dL) Random Glucose Calcium Phosphorus Magnesium Total Bilirubin AST ALT Alkaline Phosphatase Ammonia Troponin I NT-Pro-B Natriuret Pep Total Protein Albumin Globulin Albumin/Globulin Ratio Triglycerides Cholesterol LDL Cholesterol Direct HDL Cholesterol Lipase Arterial Blood Potassium 5.2 Venous Blood Potassium Urine Color Urine Clarity Urine pH Ur Specific [place] Urine Protein Urine Glucose (UA) Urine Ketones Urine Blood Urine Nitrate Urine Bilirubin Urine Urobilinogen Ur Leukocyte Esterase Urine WBC (Auto) Urine RBC (Auto) Urine Opiates Screen Urine Methadone Screen Ur Barbiturates Screen Ur Phencyclidine Scrn Ur Amphetamines Screen U Benzodiazepines Scrn U Oth Cocaine Metabols U Cannabinoids Screen Blood Type Antibody Screen 06/19/18 06/19/18 06/19/18 00:30 02:05 05:15 WBC 9.4 RBC 0.79 L Hgb 2.6 L* Hct 8.1 L MCV 101.7 H D MCH 33.0 H MCHC 32.5 L RDW 17.4 H Plt Count 44 L D MPV 6.9 L Neut % (Auto) 75.0 Lymph % (Auto) 9.6 L Hardy % (Auto) 14.6 H Eos % (Auto) 0.5 Baso % (Auto) 0.3 Neut # (Auto) 7.1 H Lymph # (Auto) 0.9 L Hardy # (Auto) 1.4 H Eos # (Auto) 0.0 Baso # (Auto) 0.0 Neutrophils % (Manual) 49 L Band Neutrophils % 29 H* Lymphocytes % (Manual) 9 L Monocytes % (Manual) 13 H Myelocytes % Nucleated RBC % 3 H Differential Comment Platelet Estimate Decreased L Polychromasia Slight Hypochromasia (manual) Slight Poikilocytosis (manual Anisocytosis (manual) Slight Microcytosis (manual) Slight Macrocytosis (manual) Slight Target Cells Tear Drop Cells Ovalocytes Luis Cells Slight Acanthocytes (Spur) Smear Path Review PT INR APTT Fibrinogen Puncture Site pCO2 pO2 102 H HCO3 ABG pH ABG Total CO2 ABG O2 Saturation ABG Base Excess ABG Hemoglobin ABG Carboxyhemoglobin POC ABG HHb (Measured) ABG Methemoglobin Jorge Test ABG Potassium VBG pH 6.93 L* VBG pCO2 32 L VBG HCO3 5.3 VBG Total CO2 7.7 L VBG O2 Sat (Calc) 99.7 H VBG Base Excess -25.0 L VBG Potassium 5.1 A-a O2 Difference Respiratory Index Hgb O2 Saturation Glucose 145 H Lactate > 20.0 H* Vent Mode Mechanical Rate FiO2 100.0 Tidal Volume PEEP 5 Crit Value Called To Olamide rn Crit Value Called By Sofía cemetery manager Crit Value Read Back Y Blood Gas Notified Time 209 Sodium 133 132.0 Potassium 5.3 H Chloride 102 101.0 Carbon Dioxide 6 L* Anion Gap 30 H BUN 10 Creatinine 1.5 Est GFR ( Amer) > 60 Est GFR (Non-Af Amer) 52 POC Glucose (mg/dL) Random Glucose 85 Calcium 6.5 L Phosphorus Magnesium Total Bilirubin AST ALT Alkaline Phosphatase Ammonia Troponin I NT-Pro-B Natriuret Pep Total Protein Albumin Globulin Albumin/Globulin Ratio Triglycerides Cholesterol LDL Cholesterol Direct HDL Cholesterol Lipase Arterial Blood Potassium Venous Blood Potassium 5.1 Urine Color Urine Clarity Urine pH Ur Specific [place] Urine Protein Urine Glucose (UA) Urine Ketones Urine Blood Urine Nitrate Urine Bilirubin Urine Urobilinogen Ur Leukocyte Esterase Urine WBC (Auto) Urine RBC (Auto) Urine Opiates Screen Urine Methadone Screen Ur Barbiturates Screen Ur Phencyclidine Scrn Ur Amphetamines Screen U Benzodiazepines Scrn U Oth Cocaine Metabols U Cannabinoids Screen Blood Type Antibody Screen 06/19/18 06/19/18 06/19/18 05:15 05:15 05:40 WBC RBC Hgb Hct MCV MCH MCHC RDW Plt Count MPV Neut % (Auto) Lymph % (Auto) Hardy % (Auto) Eos % (Auto) Baso % (Auto) Neut # (Auto) Lymph # (Auto) Hardy # (Auto) Eos # (Auto) Baso # (Auto) Neutrophils % (Manual) Band Neutrophils % Lymphocytes % (Manual) Monocytes % (Manual) Myelocytes % Nucleated RBC % Differential Comment Platelet Estimate Polychromasia Hypochromasia (manual) Poikilocytosis (manual Anisocytosis (manual) Microcytosis (manual) Macrocytosis (manual) Target Cells Tear Drop Cells Ovalocytes Luis Cells Acanthocytes (Spur) Smear Path Review PT 36.1 H D INR 3.3 H* D APTT 156 H* D Fibrinogen Puncture Site Lb/rn pCO2 31 L pO2 45 L HCO3 3.2 L* ABG pH 6.90 L* ABG Total CO2 7.1 L ABG O2 Saturation ABG Base Excess -26.1 L ABG Hemoglobin < 3.0 L ABG Carboxyhemoglobin POC ABG HHb (Measured) ABG Methemoglobin Jorge Test Na ABG Potassium VBG pH VBG pCO2 VBG HCO3 VBG Total CO2 VBG O2 Sat (Calc) VBG Base Excess VBG Potassium A-a O2 Difference 629.0 Respiratory Index 14.0 Hgb O2 Saturation Glucose Lactate Vent Mode Prvc Mechanical Rate 24 FiO2 100.0 Tidal Volume 550 PEEP 5 Crit Value Called To Jack montgomery/rn Crit Value Called By Candelario doran/rt Crit Value Read Back Y Blood Gas Notified Time 555 Sodium 134 Potassium 4.9 Chloride 100 Carbon Dioxide 6 L* Anion Gap 33 H BUN 9 Creatinine 1.6 H Est GFR ( Amer) 58 Est GFR (Non-Af Amer) 48 POC Glucose (mg/dL) Random Glucose 117 H Calcium 5.7 L* Phosphorus 10.4 H Magnesium 2.0 Total Bilirubin 5.9 H AST 410 H D ALT 75 H D Alkaline Phosphatase 21 L D Ammonia Troponin I NT-Pro-B Natriuret Pep Total Protein 3.5 L Albumin 1.4 L D Globulin 2.0 L Albumin/Globulin Ratio 0.7 L Triglycerides Cholesterol LDL Cholesterol Direct HDL Cholesterol Lipase Arterial Blood Potassium Venous Blood Potassium Urine Color Urine Clarity Urine pH Ur Specific [place] Urine Protein Urine Glucose (UA) Urine Ketones Urine Blood Urine Nitrate Urine Bilirubin Urine Urobilinogen Ur Leukocyte Esterase Urine WBC (Auto) Urine RBC (Auto) Urine Opiates Screen Urine Methadone Screen Ur Barbiturates Screen Ur Phencyclidine Scrn Ur Amphetamines Screen U Benzodiazepines Scrn U Oth Cocaine Metabols U Cannabinoids Screen Blood Type Antibody Screen 06/19/18 09:32 WBC 7.2 RBC 1.05 L Hgb 3.4 L* Hct 10.1 L MCV 96.7 H D MCH 32.6 H MCHC 33.8 RDW 14.8 H Plt Count 19 L* D MPV 7.6 Neut % (Auto) 71.4 Lymph % (Auto) 12.9 L Hardy % (Auto) 14.9 H Eos % (Auto) 0.3 Baso % (Auto) 0.5 Neut # (Auto) 5.1 Lymph # (Auto) 0.9 L Hardy # (Auto) 1.1 H Eos # (Auto) 0.0 Baso # (Auto) 0.0 Neutrophils % (Manual) Band Neutrophils % Lymphocytes % (Manual) Monocytes % (Manual) Myelocytes % Nucleated RBC % Differential Comment Platelet Estimate Polychromasia Hypochromasia (manual) Poikilocytosis (manual Anisocytosis (manual) Microcytosis (manual) Macrocytosis (manual) Target Cells Tear Drop Cells Ovalocytes Luis Cells Acanthocytes (Spur) Smear Path Review PT INR APTT Fibrinogen Puncture Site pCO2 pO2 HCO3 ABG pH ABG Total CO2 ABG O2 Saturation ABG Base Excess ABG Hemoglobin ABG Carboxyhemoglobin POC ABG HHb (Measured) ABG Methemoglobin Jorge Test ABG Potassium VBG pH VBG pCO2 VBG HCO3 VBG Total CO2 VBG O2 Sat (Calc) VBG Base Excess VBG Potassium A-a O2 Difference Respiratory Index Hgb O2 Saturation Glucose Lactate Vent Mode Mechanical Rate FiO2 Tidal Volume PEEP Crit Value Called To Crit Value Called By Crit Value Read Back Blood Gas Notified Time Sodium Potassium Chloride Carbon Dioxide Anion Gap BUN Creatinine Est GFR ( Amer) Est GFR (Non-Af Amer) POC Glucose (mg/dL) Random Glucose Calcium Phosphorus Magnesium Total Bilirubin AST ALT Alkaline Phosphatase Ammonia Troponin I NT-Pro-B Natriuret Pep Total Protein Albumin Globulin Albumin/Globulin Ratio Triglycerides Cholesterol LDL Cholesterol Direct HDL Cholesterol Lipase Arterial Blood Potassium Venous Blood Potassium Urine Color Urine Clarity Urine pH Ur Specific [place] Urine Protein Urine Glucose (UA) Urine Ketones Urine Blood Urine Nitrate Urine Bilirubin Urine Urobilinogen Ur Leukocyte Esterase Urine WBC (Auto) Urine RBC (Auto) Urine Opiates Screen Urine Methadone Screen Ur Barbiturates Screen Ur Phencyclidine Scrn Ur Amphetamines Screen U Benzodiazepines Scrn U Oth Cocaine Metabols U Cannabinoids Screen Blood Type Antibody Screen EKG/Cardiology Studies: Cardiology / EKG Studies 06/18/18 18:07 ELECTROCARDIOGRAM Stat Comment: Mode Of Transportation: BED Reason For Exam: chest pain Attending/Attestation - Attestation I have personally seen and examined this patient.: Yes I have fully participated in the care of the patient.: Yes I have reviewed all pertinent clinical information: Yes Notes (Text): 06/19/18 18:22 Patient seen and examined in the intensive care unit. Previous events noted. 38-year-old male with history of alcohol abuse was admitted intensive care unit status post cardiac arrest/resuscitation and severe anemia Patient' was transfused 9 units of packed RBCs, 5 units of FFP, cryoprecipitate and platelets with no change in hemoglobinon Patient on 4 pressors fixed and dilated pupils No response to any painful stimuli Case discussed with family at length
--- NOTE | 2018-06-19 08:29 | CT ---
Date of service: 06/18/2018 PROCEDURE: CT HEAD WITHOUT CONTRAST. HISTORY: post cardiac arrest COMPARISON: None available. TECHNIQUE: Axial computed tomography images were obtained through the head/brain without intravenous contrast. Radiation dose: Total exam DLP = 996.54 mGy-cm. This CT exam was performed using one or more of the following dose reduction techniques: Automated exposure control, adjustment of the mA and/or kV according to patient size, and/or use of iterative reconstruction technique. FINDINGS: HEMORRHAGE: No intracranial hemorrhage. BRAIN: No mass effect or edema. No atrophy or chronic microvascular ischemic changes. VENTRICLES: Unremarkable. No hydrocephalus. CALVARIUM: Unremarkable. PARANASAL SINUSES: Mild mucosal thickening of the paranasal bilateral maxillary sinuses. MASTOID AIR CELLS: Unremarkable as visualized. No inflammatory changes. OTHER FINDINGS: Limited study secondary to motion and streak artifact. IMPRESSION: Limited study secondary to motion and streak artifact. Limited evaluation of the posterior fossa given motion and streak artifact. No acute intracranial abnormality. If there is concern for acute ischemic change, correlation with MRI is recommended. These findings were preliminarily reported at 7:53 p.m. on 06/18/[address] Howie Robles from [facility].
[2018-06-19 08:48] LABS: ANISOCYTOSIS SLIGHT; BANDS 29 % (0-2); LYMPHOCYTE 9 % (20-40); MONOCYTE 13 % (0-10); NEUTROPHIL 49 % (50-75); NUCLEATED RED BLOOD CELL 3 % (0-0); PLATELET ESTIMATE DECREASED (NORMAL); TOTAL CELLS COUNTED 100
[2018-06-19 08:49] LABS: BURR CELLS SLIGHT; HYPOCHROMIC SLIGHT; MICROCYTOSIS SLIGHT; POLYCHROMIC SLIGHT
[2018-06-19 09:38] LABS: BASO % 0.5 % (0.0-2.0); EOS % 0.3 % (0.0-4.0); LYMPH # 0.9 K/uL (1.0-4.3); LYMPH % 12.9 % (20.0-40.0); MEAN CELL VOLUME 96.7 fL (80.0-94.0); MEAN CORPUSCULAR HEMOGLOBIN 32.6 pg (27.0-31.0); MEAN CORPUSCULAR HGB CONC 33.8 g/dL (33.0-37.0); MEAN PLATELET VOLUME 7.6 fL (7.2-11.7); MONO # 1.1 K/uL (0.0-0.8); MONO % 14.9 % (0.0-10.0); NEUT # 5.1 K/uL (1.8-7.0); NEUT % 71.4 % (50.0-75.0); NRBC % 4.5 % (0.0-2.0); RBC 1.05 Mil/uL (4.40-5.90); RED CELL DISTRIBUTION WIDTH 14.8 % (11.5-14.5); WHITE BLOOD COUNT 7.2 K/uL (4.8-10.8)
[2018-06-19 09:41] LABS: HEMOGLOBIN 3.4 g/dL (12.0-18.0)
--- NOTE | 2018-06-19 11:54 | RAD ---
Date of service: 06/19/2018 HISTORY: intubated COMPARISON: None available. FINDINGS: In situ ETT, tip of which lies approximately 2.3 cm above jl. LUNGS: Hazy opacity throughout the right hemithorax consistent with large layering effusion and atelectasis and/or infiltrate. Minor left basilar atelectasis. Tiny left-sided effusion not excluded. PLEURA: No significant pleural effusion identified, no pneumothorax apparent. CARDIOVASCULAR: No aortic atherosclerotic calcification present. Heart is mildly enlarged. No pulmonary vascular congestion. OSSEOUS STRUCTURES: No significant abnormalities. VISUALIZED UPPER ABDOMEN: Normal. OTHER FINDINGS: None. IMPRESSION: In situ ETT as above.. Hazy opacity throughout the right hemithorax consistent with large layering effusion and atelectasis and/or infiltrate. Minor left basilar atelectasis. Tiny left-sided effusion not excluded.
--- NOTE | 2018-06-19 13:16 | CP.PCM.CON ---
History of Present Illness - History of Present Illness History of Present Illness: Palliative consult requested by Shun AKHTAR for goals of care discussion, re cardiac arrest Patient is a 38 yo male admitted from home via EMS where was found in respiratory distress. Patient was placed on BiPaP . While leaving home with EMS patient sustained cardiac arrest, was given epi and Bicarbs, intubated on field and brought to ED. In ED patient found with Hb 3.4 and was activelly bleeding. Until now patient received 9 units of PRBCs in addition to FFP and Platelets. Hb remains low at 3.4 as patient is still bleeding from moth, nose and penis. Neuro consult was called and EEG recommended. Patient is on max life support of Vsopresin, Levophed, Dopamine, Dilantin, Phenobarb. prognosis is grave. Mother on her way from [place]. Father at bed side. PMH: Liver cirrhosis, renal failure, Gi bleed Soc. Hx: Lives alone, alcohol abuse, unemployed Fam. Hx: Alcohol abuse from grandfather's side Review of Systems - Review of Systems All systems: reviewed and no additional remarkable complaints except Review of Systems: ROS unobtainable from the patient due to state of coma. ROS obtained from nursing. Per nursing, patient was unresponsive since admission and is still actively bleeding from nose, mouth and penis Past Patient History - Past Medical History & Family History Past Medical History?: Yes - Past Social History Smoking Status: Former Smoker Alcohol: > 2 Drinks/Day - HEMATOLOGICAL/ONCOLOGICAL Hx Blood Disorders: Yes Hx Cirrhosis: Yes Other/Comment: liver problems - INTEGUMENTARY Hx Dermatological Problems: No - MUSCULOSKELETAL/RHEUMATOLOGICAL Hx Musculoskeletal Disorders: Yes Hx Falls: Yes - GASTROINTESTINAL Hx Liver Failure: Yes - GENITOURINARY/GYNECOLOGICAL Hx Genitourinary Disorders: No - PSYCHIATRIC Hx Substance Use: No - SURGICAL HISTORY Hx Surgeries: No - ANESTHESIA Hx Anesthesia: No Meds Allergies/Adverse Reactions: Allergies Allergy/AdvReac Type Severity Reaction Status Date / Time No Known Allergies Allergy Verified 06/18/18 18:00 - Medications Medications: Current Medications Vasopressin 40 units/ Dextrose 40 mls @ 0.6 mls/hr IV .Q24H [facility]; Protocol Last Admin: 06/19/18 05:06 Dose: 0.04 units/min, 2.4 mls/hr Sodium Bicarbonate 150 meq/ (Dextrose) 1,150 mls @ 150 mls/hr IV .Q7H40M [facility] Last Admin: 06/19/18 05:10 Dose: 150 mls/hr Piperacillin Sod/Tazobactam (Sod 3.375 gm/ Sodium Chloride) 100 mls @ 200 mls/hr IVPB Q6H [facility]; Protocol Last Admin: 06/19/18 04:49 Dose: 200 mls/hr Norepinephrine Bitartrate 16 (mg/ Sodium Chloride) 516 mls @ 7.74 mls/hr IV .Q24H PRN; Protocol PRN Reason: TITRATE PER MD ORDER Last Admin: 06/18/18 22:07 Dose: 30 mcg/min, 58.05 mls/hr Phenytoin 100 mg/ Sodium (Chloride) 52 mls @ 240 mls/hr IVPB Q8H [facility] Last Admin: 06/19/18 04:51 Dose: 240 mls/hr Phenobarbital 90 mg/ Sodium (Chloride) 101.3846 mls @ 200 mls/hr IM Q8H [facility] Last Admin: 06/19/18 05:09 Dose: 200 mls/hr Folic Acid 1 mg/ Thiamine HCl 100 mg/ Multivitamins/Vitamin C 10 ml/ Dextrose 1,011.2 mls @ 40 mls/hr IV .Q24H [facility] Last Admin: 06/19/18 04:51 Dose: 40 mls/hr Dopamine HCl/Dextrose (Dopamine 400mg/250ml D5w) 400 mg in 250 mls @ 8.233 mls/hr IV .Q24H PRN; Protocol PRN Reason: TITRATE PER MD ORDER Last Admin: 06/19/18 11:25 Dose: 20 mcg/kg/min, 82.327 mls/hr Phenylephrine HCl 30 mg/ (Sodium Chloride) 253 mls @ 10.12 mls/hr IV .Q24H PRN; Protocol PRN Reason: TITRATE PER MD ORDER Last Admin: 06/19/18 11:28 Dose: 180 mcg/min, 91.08 mls/hr Midazolam HCl 100 mg/ Dextrose 100 mls @ 4.39 mls/hr IV .[id number] [facility]; Protocol Last Admin: 06/18/18 23:12 Dose: 0.04 mg/kg/hr, 4.39 mls/hr Physical Exam - Constitutional Appears: In Acute Distress, Chronically Ill - Head Exam Head Exam: ATRAUMATIC, NORMAL INSPECTION, NORMOCEPHALIC - Eye Exam Pupil Exam: Fixed - ENT Exam Additional comments: nose bleed - Neck Exam Neck exam: Positive for: Normal Inspection - Respiratory Exam Additional comments: Intubated - Cardiovascular Exam Cardiovascular Exam: Bradycardia, Irregular Rhythm - GI/Abdominal Exam GI & Abdominal Exam: Distended, Firm - Rectal Exam Rectal Exam: Deferred - Exam Additional comments: bleeding via penis - Extremities Exam Extremities exam: Positive for: pedal edema - Back Exam Back exam: NORMAL INSPECTION - Neurological Exam Neurological exam: Motor Sensory Deficit - Psychiatric Exam Psychiatric exam: Flat Affect - Skin Skin Exam: Pallor Results - Vital Signs Recent Vital Signs: Last Vital Signs Temp 96.0 F L 06/19/18 08:42 Pulse 61 06/19/18 11:28 Resp 24 06/19/18 11:28 BP 49/20 L 06/19/18 11:28 Pulse Ox 91 L 06/19/18 11:28 - Labs Result Diagrams: 06/19/18 09:32 06/19/18 05:15 Labs: Laboratory Results - last 24 hr 06/18/18 06/18/18 06/18/18 18:05 18:10 18:15 WBC 12.2 H RBC 0.88 L Hgb 3.4 L* D Hct 11.5 L MCV 130.3 H D MCH 38.7 H MCHC 29.7 L RDW 19.2 H Plt Count 57 L MPV 8.3 Neut % (Auto) 73.1 Lymph % (Auto) 10.0 L Meigs % (Auto) 15.8 H Eos % (Auto) 0.2 Baso % (Auto) 0.9 Neut # (Auto) 8.9 H Lymph # (Auto) 1.2 Meigs # (Auto) 1.9 H Eos # (Auto) 0.0 Baso # (Auto) 0.1 Neutrophils % (Manual) 63 Band Neutrophils % 9 H Lymphocytes % (Manual) 14 L Monocytes % (Manual) 9 Myelocytes % 5 H Nucleated RBC % 6 H Differential Comment Platelet Estimate Decreased L Polychromasia Slight Hypochromasia (manual) Marked Poikilocytosis (manual Moderate Anisocytosis (manual) Moderate Microcytosis (manual) Moderate Macrocytosis (manual) Moderate Target Cells Slight Tear Drop Cells Slight Ovalocytes Slight Luis Cells Moderate Acanthocytes (Spur) Moderate Smear Path Review PT INR APTT Fibrinogen Puncture Site pCO2 pO2 41 HCO3 ABG pH ABG Total CO2 ABG O2 Saturation ABG Base Excess ABG Hemoglobin ABG Carboxyhemoglobin POC ABG HHb (Measured) ABG Methemoglobin Jorge Test ABG Potassium VBG pH < 6.80 L* VBG pCO2 53 VBG HCO3 VBG Total CO2 VBG O2 Sat (Calc) 52.9 VBG Base Excess VBG Potassium 4.2 A-a O2 Difference Respiratory Index Hgb O2 Saturation Sodium 134.0 Chloride 104.0 Glucose 64 L Lactate 18.7 H* Vent Mode Mechanical Rate FiO2 Tidal Volume PEEP Crit Value Called To Dr carrasco Crit Value Called By Edie rt Crit Value Read Back Y Blood Gas Notified Time 1815 Potassium Carbon Dioxide Anion Gap BUN Creatinine Est GFR ( Amer) Est GFR (Non-Af Amer) POC Glucose (mg/dL) 65 Random Glucose Calcium Phosphorus Magnesium Total Bilirubin AST ALT Alkaline Phosphatase Ammonia Troponin I NT-Pro-B Natriuret Pep Total Protein Albumin Globulin Albumin/Globulin Ratio Triglycerides Cholesterol LDL Cholesterol Direct HDL Cholesterol Lipase Arterial Blood Potassium Venous Blood Potassium 4.2 Urine Color Urine Clarity Urine pH Ur Specific [place] Urine Protein Urine Glucose (UA) Urine Ketones Urine Blood Urine Nitrate Urine Bilirubin Urine Urobilinogen Ur Leukocyte Esterase Urine WBC (Auto) Urine RBC (Auto) Urine Opiates Screen Urine Methadone Screen Ur Barbiturates Screen Ur Phencyclidine Scrn Ur Amphetamines Screen U Benzodiazepines Scrn U Oth Cocaine Metabols U Cannabinoids Screen Blood Type Antibody Screen 06/18/18 06/18/18 06/18/18 18:15 18:15 18:15 WBC RBC Hgb Hct MCV MCH MCHC RDW Plt Count MPV Neut % (Auto) Lymph % (Auto) Meigs % (Auto) Eos % (Auto) Baso % (Auto) Neut # (Auto) Lymph # (Auto) Me[place] # (Auto) Eos # (Auto) Baso # (Auto) Neutrophils % (Manual) Band Neutrophils % Lymphocytes % (Manual) Monocytes % (Manual) Myelocytes % Nucleated RBC % Differential Comment Platelet Estimate Polychromasia Hypochromasia (manual) Poikilocytosis (manual Anisocytosis (manual) Microcytosis (manual) Macrocytosis (manual) Target Cells Tear Drop Cells Ovalocytes [place] Cells Acanthocytes (Spur) Smear Path Review PT 64.3 H INR 5.8 H* APTT 97 H Fibrinogen Puncture Site pCO2 pO2 HCO3 ABG pH ABG Total CO2 ABG O2 Saturation ABG Base Excess ABG Hemoglobin ABG Carboxyhemoglobin POC ABG HHb (Measured) ABG Methemoglobin Jorge Test ABG Potassium VBG pH VBG pCO2 VBG HCO3 VBG Total CO2 VBG O2 Sat (Calc) VBG Base Excess VBG Potassium A-a O2 Difference Respiratory Index Hgb O2 Saturation Sodium 132 Chloride 101 Glucose Lactate Vent Mode Mechanical Rate FiO2 Tidal Volume PEEP Crit Value Called To Crit Value Called By Crit Value Read Back Blood Gas Notified Time Potassium 4.5 Carbon Dioxide 7 L* D Anion Gap 28 H BUN 9 Creatinine 1.2 Est GFR ( Amer) > 60 Est GFR (Non-Af Amer) > 60 POC Glucose (mg/dL) Random Glucose 63 L Calcium 7.4 L Phosphorus Magnesium Total Bilirubin 11.8 H AST 129 H ALT 24 Alkaline Phosphatase 76 Ammonia Troponin I 0.0860 NT-Pro-B Natriuret Pep 1730 H Total Protein 6.3 Albumin 2.4 L D Globulin 3.9 Albumin/Globulin Ratio 0.6 L Triglycerides 92 Cholesterol 127 LDL Cholesterol Direct < 30 HDL Cholesterol 41 Lipase 160 Arterial Blood Potassium Venous Blood Potassium Urine Color Urine Clarity Urine pH Ur Specific [place] Urine Protein Urine Glucose (UA) Urine Ketones Urine Blood Urine Nitrate Urine Bilirubin Urine Urobilinogen Ur Leukocyte Esterase Urine WBC (Auto) Urine RBC (Auto) Urine Opiates Screen Urine Methadone Screen Ur Barbiturates Screen Ur Phencyclidine Scrn Ur Amphetamines Screen U Benzodiazepines Scrn U Oth Cocaine Metabols U Cannabinoids Screen Blood Type B NEGATIVE Antibody Screen Negative 06/18/18 06/18/18 06/18/18 18:15 18:29 18:30 WBC RBC Hgb Hct MCV MCH MCHC RDW Plt Count MPV Neut % (Auto) Lymph % (Auto) Me[place] % (Auto) Eos % (Auto) Baso % (Auto) Neut # (Auto) Lymph # (Auto) [place] # (Auto) Eos # (Auto) Baso # (Auto) Neutrophils % (Manual) Band Neutrophils % Lymphocytes % (Manual) Monocytes % (Manual) Myelocytes % Nucleated RBC % Differential Comment Platelet Estimate Polychromasia Hypochromasia (manual) Poikilocytosis (manual Anisocytosis (manual) Microcytosis (manual) Macrocytosis (manual) Target Cells Tear Drop Cells Ovalocytes [place] Cells Acanthocytes (Spur) Smear Path Review PT INR APTT Fibrinogen Puncture Site pCO2 pO2 HCO3 ABG pH ABG Total CO2 ABG O2 Saturation ABG Base Excess ABG Hemoglobin ABG Carboxyhemoglobin POC ABG HHb (Measured) ABG Methemoglobin Jorge Test ABG Potassium VBG pH VBG pCO2 VBG HCO3 VBG Total CO2 VBG O2 Sat (Calc) VBG Base Excess VBG Potassium A-a O2 Difference Respiratory Index Hgb O2 Saturation Sodium Chloride Glucose Lactate Vent Mode Mechanical Rate FiO2 Tidal Volume PEEP Crit Value Called To Crit Value Called By Crit Value Read Back Blood Gas Notified Time Potassium Carbon Dioxide Anion Gap BUN Creatinine Est GFR ( Amer) Est GFR (Non-Af Amer) POC Glucose (mg/dL) 118 H Random Glucose Calcium Phosphorus Magnesium Total Bilirubin AST ALT Alkaline Phosphatase Ammonia 235 H D Troponin I NT-Pro-B Natriuret Pep Total Protein Albumin Globulin Albumin/Globulin Ratio Triglycerides Cholesterol LDL Cholesterol Direct HDL Cholesterol Lipase Arterial Blood Potassium Venous Blood Potassium Urine Color Shahana Urine Clarity Hazy Urine pH 5.0 Ur Specific [place] 1.015 Urine Protein 1+ H Urine Glucose (UA) Normal Urine Ketones Negative Urine Blood 1+ H Urine Nitrate Negative Urine Bilirubin 1+ H Urine Urobilinogen 4.0 Ur Leukocyte Esterase Neg Urine WBC (Auto) < 1 Urine RBC (Auto) < 1 Urine Opiates Screen Urine Methadone Screen Ur Barbiturates Screen Ur Phencyclidine Scrn Ur Amphetamines Screen U Benzodiazepines Scrn U Oth Cocaine Metabols U Cannabinoids Screen Blood Type Antibody Screen 06/18/18 06/18/18 06/18/18 18:30 19:00 19:02 WBC RBC Hgb Hct MCV MCH MCHC RDW Plt Count MPV Neut % (Auto) Lymph % (Auto) [place] % (Auto) Eos % (Auto) Baso % (Auto) Neut # (Auto) Lymph # (Auto) [place] # (Auto) Eos # (Auto) Baso # (Auto) Neutrophils % (Manual) Band Neutrophils % Lymphocytes % (Manual) Monocytes % (Manual) Myelocytes % Nucleated RBC % Differential Comment Platelet Estimate Polychromasia Hypochromasia (manual) Poikilocytosis (manual Anisocytosis (manual) Microcytosis (manual) Macrocytosis (manual) Target Cells Tear Drop Cells Ovalocytes Luis Cells Acanthocytes (Spur) Smear Path Review PT INR APTT Fibrinogen Puncture Site Rba pCO2 30 L pO2 233 H HCO3 6.9 L* ABG pH 6.93 L* ABG Total CO2 7.2 L ABG O2 Saturation 101.9 H ABG Base Excess -23.2 L ABG Hemoglobin 3.3 L ABG Carboxyhemoglobin 5.2 H POC ABG HHb (Measured) -1.8 L ABG Methemoglobin 2.4 Jorge Test Na ABG Potassium VBG pH VBG pCO2 VBG HCO3 VBG Total CO2 VBG O2 Sat (Calc) VBG Base Excess VBG Potassium A-a O2 Difference 443.0 Respiratory Index 1.9 Hgb O2 Saturation 94.3 L Sodium Chloride Glucose Lactate Vent Mode Prvc Mechanical Rate 18 FiO2 100.0 Tidal Volume 550 PEEP 6 Crit Value Called To Er nurse vance Crit Value Called By Edie rt Crit Value Read Back Y Blood Gas Notified Time 1905 Potassium Carbon Dioxide Anion Gap BUN Creatinine Est GFR ( Amer) Est GFR (Non-Af Amer) POC Glucose (mg/dL) Random Glucose Calcium Phosphorus 8.8 H Magnesium 2.0 Total Bilirubin AST ALT Alkaline Phosphatase Ammonia Troponin I NT-Pro-B Natriuret Pep Total Protein Albumin Globulin Albumin/Globulin Ratio Triglycerides Cholesterol LDL Cholesterol Direct HDL Cholesterol Lipase Arterial Blood Potassium Venous Blood Potassium Urine Color Urine Clarity Urine pH Ur Specific [place] Urine Protein Urine Glucose (UA) Urine Ketones Urine Blood Urine Nitrate Urine Bilirubin Urine Urobilinogen Ur Leukocyte Esterase Urine WBC (Auto) Urine RBC (Auto) Urine Opiates Screen Negative Urine Methadone Screen Negative Ur Barbiturates Screen Negative Ur Phencyclidine Scrn Negative Ur Amphetamines Screen Negative U Benzodiazepines Scrn Negative U Oth Cocaine Metabols Negative U Cannabinoids Screen Negative Blood Type Antibody Screen 06/18/18 06/18/18 06/18/18 21:44 23:25 23:25 WBC 15.9 H RBC 1.12 L Hgb 3.9 L* Hct 12.3 L MCV 109.4 H D MCH 34.5 H MCHC 31.6 L RDW 25.5 H Plt Count 13 L* D MPV 11.1 Neut % (Auto) 73.6 Lymph % (Auto) 13.1 L [place] % (Auto) 12.2 H Eos % (Auto) 0.6 Baso % (Auto) 0.5 Neut # (Auto) 11.7 H Lymph # (Auto) 2.1 Me[place] # (Auto) 1.9 H Eos # (Auto) 0.1 Baso # (Auto) 0.1 Neutrophils % (Manual) Band Neutrophils % Lymphocytes % (Manual) Monocytes % (Manual) Myelocytes % Nucleated RBC % Differential Comment Platelet Estimate Polychromasia Hypochromasia (manual) Poikilocytosis (manual Anisocytosis (manual) Microcytosis (manual) Macrocytosis (manual) Target Cells Tear Drop Cells Ovalocytes Luis Cells Acanthocytes (Spur) Smear Path Review PT 97.9 H D INR 8.9 H* D APTT 184 H* D Fibrinogen < 35 L Puncture Site pCO2 pO2 HCO3 ABG pH ABG Total CO2 ABG O2 Saturation ABG Base Excess ABG Hemoglobin ABG Carboxyhemoglobin POC ABG HHb (Measured) ABG Methemoglobin Jorge Test ABG Potassium VBG pH VBG pCO2 VBG HCO3 VBG Total CO2 VBG O2 Sat (Calc) VBG Base Excess VBG Potassium A-a O2 Difference Respiratory Index Hgb O2 Saturation Sodium Chloride Glucose Lactate Vent Mode Mechanical Rate FiO2 Tidal Volume PEEP Crit Value Called To Crit Value Called By Crit Value Read Back Blood Gas Notified Time Potassium Carbon Dioxide Anion Gap BUN Creatinine Est GFR ( Amer) Est GFR (Non-Af Amer) POC Glucose (mg/dL) Random Glucose Calcium Phosphorus Magnesium Total Bilirubin AST ALT Alkaline Phosphatase Ammonia Troponin I NT-Pro-B Natriuret Pep Total Protein Albumin Globulin Albumin/Globulin Ratio Triglycerides Cholesterol LDL Cholesterol Direct HDL Cholesterol Lipase Arterial Blood Potassium Venous Blood Potassium Urine Color Urine Clarity Urine pH Ur Specific [place] Urine Protein Urine Glucose (UA) Urine Ketones Urine Blood Urine Nitrate Urine Bilirubin Urine Urobilinogen Ur Leukocyte Esterase Urine WBC (Auto) Urine RBC (Auto) Urine Opiates Screen Urine Methadone Screen Ur Barbiturates Screen Ur Phencyclidine Scrn Ur Amphetamines Screen U Benzodiazepines Scrn U Oth Cocaine Metabols U Cannabinoids Screen Blood Type Antibody Screen 06/19/18 06/19/18 06/19/18 00:21 00:30 02:05 WBC RBC Hgb Hct MCV MCH MCHC RDW Plt Count MPV Neut % (Auto) Lymph % (Auto) [place] % (Auto) Eos % (Auto) Baso % (Auto) Neut # (Auto) Lymph # (Auto) [place] # (Auto) Eos # (Auto) Baso # (Auto) Neutrophils % (Manual) Band Neutrophils % Lymphocytes % (Manual) Monocytes % (Manual) Myelocytes % Nucleated RBC % Differential Comment Platelet Estimate Polychromasia Hypochromasia (manual) Poikilocytosis (manual Anisocytosis (manual) Microcytosis (manual) Macrocytosis (manual) Target Cells Tear Drop Cells Ovalocytes [place] Cells Acanthocytes (Spur) Smear Path Review PT INR APTT Fibrinogen Puncture Site Lb pCO2 31 L pO2 99 102 H HCO3 3.6 L* ABG pH 6.87 L* ABG Total CO2 6.7 L ABG O2 Saturation 99.5 H ABG Base Excess -27.1 L ABG Hemoglobin ABG Carboxyhemoglobin POC ABG HHb (Measured) ABG Methemoglobin Jorge Test Na ABG Potassium 5.2 VBG pH 6.93 L* VBG pCO2 32 L VBG HCO3 5.3 VBG Total CO2 7.7 L VBG O2 Sat (Calc) 99.7 H VBG Base Excess -25.0 L VBG Potassium 5.1 A-a O2 Difference 575.0 Respiratory Index 5.8 Hgb O2 Saturation Sodium 132.0 133 132.0 Chloride 102.0 102 101.0 Glucose 87 145 H Lactate > 20.0 H* > 20.0 H* Vent Mode Prvc Mechanical Rate 20 FiO2 100.0 100.0 Tidal Volume 550 PEEP 5 5 Crit Value Called To Dr. maribell Quiñonez rn Crit Value Called By Sofía dealer sales manager Sofía dealer sales manager Crit Value Read Back Y Y Blood Gas Notified Time 26 209 Potassium 5.3 H Carbon Dioxide 6 L* Anion Gap 30 H BUN 10 Creatinine 1.5 Est GFR ( Amer) > 60 Est GFR (Non-Af Amer) 52 POC Glucose (mg/dL) Random Glucose 85 Calcium 6.5 L Phosphorus Magnesium Total Bilirubin AST ALT Alkaline Phosphatase Ammonia Troponin I NT-Pro-B Natriuret Pep Total Protein Albumin Globulin Albumin/Globulin Ratio Triglycerides Cholesterol LDL Cholesterol Direct HDL Cholesterol Lipase Arterial Blood Potassium 5.2 Venous Blood Potassium 5.1 Urine Color Urine Clarity Urine pH Ur Specific [place] Urine Protein Urine Glucose (UA) Urine Ketones Urine Blood Urine Nitrate Urine Bilirubin Urine Urobilinogen Ur Leukocyte Esterase Urine WBC (Auto) Urine RBC (Auto) Urine Opiates Screen Urine Methadone Screen Ur Barbiturates Screen Ur Phencyclidine Scrn Ur Amphetamines Screen U Benzodiazepines Scrn U Oth Cocaine Metabols U Cannabinoids Screen Blood Type Antibody Screen 06/19/18 06/19/18 06/19/18 05:15 05:15 05:15 WBC 9.4 RBC 0.79 L Hgb 2.6 L* Hct 8.1 L MCV 101.7 H D MCH 33.0 H MCHC 32.5 L RDW 17.4 H Plt Count 44 L D MPV 6.9 L Neut % (Auto) 75.0 Lymph % (Auto) 9.6 L [place] % (Auto) 14.6 H Eos % (Auto) 0.5 Baso % (Auto) 0.3 Neut # (Auto) 7.1 H Lymph # (Auto) 0.9 L [place] # (Auto) 1.4 H Eos # (Auto) 0.0 Baso # (Auto) 0.0 Neutrophils % (Manual) 49 L Band Neutrophils % 29 H* Lymphocytes % (Manual) 9 L Monocytes % (Manual) 13 H Myelocytes % Nucleated RBC % 3 H Differential Comment Platelet Estimate Decreased L Polychromasia Slight Hypochromasia (manual) Slight Poikilocytosis (manual Anisocytosis (manual) Slight Microcytosis (manual) Slight Macrocytosis (manual) Slight Target Cells Tear Drop Cells Ovalocytes Luis Cells Slight Acanthocytes (Spur) Smear Path Review PT 36.1 H D INR 3.3 H* D APTT 156 H* D Fibrinogen Puncture Site pCO2 pO2 HCO3 ABG pH ABG Total CO2 ABG O2 Saturation ABG Base Excess ABG Hemoglobin ABG Carboxyhemoglobin POC ABG HHb (Measured) ABG Methemoglobin Jorge Test ABG Potassium VBG pH VBG pCO2 VBG HCO3 VBG Total CO2 VBG O2 Sat (Calc) VBG Base Excess VBG Potassium A-a O2 Difference Respiratory Index Hgb O2 Saturation Sodium 134 Chloride 100 Glucose Lactate Vent Mode Mechanical Rate FiO2 Tidal Volume PEEP Crit Value Called To Crit Value Called By Crit Value Read Back Blood Gas Notified Time Potassium 4.9 Carbon Dioxide 6 L* Anion Gap 33 H BUN 9 Creatinine 1.6 H Est GFR ( Amer) 58 Est GFR (Non-Af Amer) 48 POC Glucose (mg/dL) Random Glucose 117 H Calcium 5.7 L* Phosphorus 10.4 H Magnesium 2.0 Total Bilirubin 5.9 H AST 410 H D ALT 75 H D Alkaline Phosphatase 21 L D Ammonia Troponin I NT-Pro-B Natriuret Pep Total Protein 3.5 L Albumin 1.4 L D Globulin 2.0 L Albumin/Globulin Ratio 0.7 L Triglycerides Cholesterol LDL Cholesterol Direct HDL Cholesterol Lipase Arterial Blood Potassium Venous Blood Potassium Urine Color Urine Clarity Urine pH Ur Specific [place] Urine Protein Urine Glucose (UA) Urine Ketones Urine Blood Urine Nitrate Urine Bilirubin Urine Urobilinogen Ur Leukocyte Esterase Urine WBC (Auto) Urine RBC (Auto) Urine Opiates Screen Urine Methadone Screen Ur Barbiturates Screen Ur Phencyclidine Scrn Ur Amphetamines Screen U Benzodiazepines Scrn U Oth Cocaine Metabols U Cannabinoids Screen Blood Type Antibody Screen 06/19/18 06/19/18 05:40 09:32 WBC 7.2 RBC 1.05 L Hgb 3.4 L* Hct 10.1 L MCV 96.7 H D MCH 32.6 H MCHC 33.8 RDW 14.8 H Plt Count 19 L* D MPV 7.6 Neut % (Auto) 71.4 Lymph % (Auto) 12.9 L [place] % (Auto) 14.9 H Eos % (Auto) 0.3 Baso % (Auto) 0.5 Neut # (Auto) 5.1 Lymph # (Auto) 0.9 L [place] # (Auto) 1.1 H Eos # (Auto) 0.0 Baso # (Auto) 0.0 Neutrophils % (Manual) Band Neutrophils % Lymphocytes % (Manual) Monocytes % (Manual) Myelocytes % Nucleated RBC % Differential Comment Platelet Estimate Polychromasia Hypochromasia (manual) Poikilocytosis (manual Anisocytosis (manual) Microcytosis (manual) Macrocytosis (manual) Target Cells Tear Drop Cells Ovalocytes Luis Cells Acanthocytes (Spur) Smear Path Review PT INR APTT Fibrinogen Puncture Site Lb/rn pCO2 31 L pO2 45 L HCO3 3.2 L* ABG pH 6.90 L* ABG Total CO2 7.1 L ABG O2 Saturation ABG Base Excess -26.1 L ABG Hemoglobin < 3.0 L ABG Carboxyhemoglobin POC ABG HHb (Measured) ABG Methemoglobin Jorge Test Na ABG Potassium VBG pH VBG pCO2 VBG HCO3 VBG Total CO2 VBG O2 Sat (Calc) VBG Base Excess VBG Potassium A-a O2 Difference 629.0 Respiratory Index 14.0 Hgb O2 Saturation Sodium Chloride Glucose Lactate Vent Mode Prvc Mechanical Rate 24 FiO2 100.0 Tidal Volume 550 PEEP 5 Crit Value Called To Jack montgomery/rn Crit Value Called By Candelario doran/rt Crit Value Read Back Y Blood Gas Notified Time 555 Potassium Carbon Dioxide Anion Gap BUN Creatinine Est GFR ( Amer) Est GFR (Non-Af Amer) POC Glucose (mg/dL) Random Glucose Calcium Phosphorus Magnesium Total Bilirubin AST ALT Alkaline Phosphatase Ammonia Troponin I NT-Pro-B Natriuret Pep Total Protein Albumin Globulin Albumin/Globulin Ratio Triglycerides Cholesterol LDL Cholesterol Direct HDL Cholesterol Lipase Arterial Blood Potassium Venous Blood Potassium Urine Color Urine Clarity Urine pH Ur Specific [place] Urine Protein Urine Glucose (UA) Urine Ketones Urine Blood Urine Nitrate Urine Bilirubin Urine Urobilinogen Ur Leukocyte Esterase Urine WBC (Auto) Urine RBC (Auto) Urine Opiates Screen Urine Methadone Screen Ur Barbiturates Screen Ur Phencyclidine Scrn Ur Amphetamines Screen U Benzodiazepines Scrn U Oth Cocaine Metabols U Cannabinoids Screen Blood Type Antibody Screen Assessment & Plan - Assessment and Plan (Free Text) Assessment: Palliative consult Full Code, there is no advance directive on chart, PPS 10% I reviewed medical records, all diagnostic studies, examined patient in the bed and discussed his condition with his father Mr. Mendoza Patient is unresponsive to stimuli, no corneal reflex, no gag reflex, looking pale. Pupils are fixed. Intubated and on pressors for BP support. Sclera pale. Significant edema to upper and lower extremities. Abdomen is hardly distended. Patient is bleeding via NGT, OT tube abd penis. H 3.4 after 9 units of PRBCs. BP 49/20, HR 61. Neuro consult called, prognosis grave. Patient's condition discussed with patient's father, Mr. Mendoza. The mother was still to arrive from [place]. The parents are . The father stated understanding about his son's condition and is fearing the worse. He said , he was police liaison officer in [place] and had seen many people in cardiac arrest. He understands meaning of it. Shortly after our discussion the patient Coded and CODE BLUE was called. CPR initiated. Patient was not responding . I asked the father if he wanted us to stop chest compressions. He said YES and the rest of large family supported his decision. Patient's brother nd sister arrived that moment and agreed with cessation of CPR as well. Patient was pronounced . I called Revenue Manager Elaine to offer prayers as family requested. The bereavement cart was ordered as well. Impression * Anoxic brain injury, S/P cardiac arrest * Terminal prognosis * Father, Mr. Mendoza agreed with allowing of natural after CPR was not bringing patient back * Patient Suggestions * Continue Spiritual support to immediate family, especially to Mother when she arrives Advance care planing 60 min
--- NOTE | 2018-06-19 13:28 | CP.PCM.PRO ---
Pronouncement of Note - Clinical Findings Physical Exam: No Response Verbal/Painful Stimuli, Absent Peripheral Puls es{Carotid & Femoral}, Absent Heart & Breath Sounds, No Pupillary Light Reflex, No Corneal Reflex, Pupils Fixed & Dilated, Absence of Vital Signs - Pronouncement Time Time of Pronouncement of : 13:25 - Notifications Pronouncement Notifications: Family Notified, Atending Notified Tariff Inspector Notified: Yes - Autopsy Autopsy Requested: No (Case released 13:54 by [place] Maricel Stewart) - [place] [id number] Additional Comments: Notified patient's father and family who are at bedside. Dr. Jonny Ballard notified.
--- NOTE | 2018-06-19 13:40 | CT ---
Date of service:06/18/2018 CT chest, abdomen, and pelvis without IV contrast Indication: s/p cardiac arrest Technique: Contiguous axial images of the chest, abdomen, and pelvis without oral or IV contrast. Coronal and Sagittal reformats generated and reviewed. This CT exam was performed using 1 or more of the following dose reduction techniques: Automated exposure control, adjustment of the MAA and/or kV according to patient size, and/or use of iterative reconstruction technique. Radiation dose: Total exam DLP = 1985.84 MGy-cm. Comparison: Chest x-ray performed 06/19/18 and 06/18/18, abdominal ultrasound performed 09/24/17, CT of the abdomen pelvis with IV contrast performed 09/23/17 Findings: Examination limited by paucity of intra-abdominal and intrapelvic fat as well as lack of oral or IV contrast. Endotracheal tube terminates approximately 1.5 cm above the jl. Visualized portions of the inferior thyroid gland appear unremarkable. Cardiomegaly. Dense coronary artery calcifications. Bilateral small pleural effusions and associated compressive consolidations. Scattered regions of bilateral consolidation, possibly aspiration/pneumonia. Right upper lobe scarring or atelectasis. Diffuse abdominal and pelvic ascites. Upper abdominal varices. Diffuse anasarca. Nodular diminutive liver consistent with cirrhosis. Cholelithiasis. 19 mm probable splenule. Splenomegaly. The noncontrast kidneys and pancreas appear grossly unremarkable. No evidence of adrenal mass. 16.2 x 6.6 x 11.5 cm (AP by transverse by CC dimensions) collection which appears in the extraperitoneal space favored to represent blood products. Posterior to the right kidney nonspecific stranding/prominent retroperitoneal densities; hemoperitoneum versus infection or phlegmon/collection suspected. Asymmetric enlargement of the right iliopsoas. Correlate clinically. The stomach is nondistended. Lack of oral contrast limits evaluation for bowel pathology. The bowel loops appear within normal limits of caliber without evidence of intestinal obstruction. There is no definite free air. Enlarged prostate gland containing calcifications. Thick-walled under distended urinary bladder. Rectal tube. Incidental note is made of small foci of air at the level the right clavicle, unclear significance. Left 5th and 6th rib fracture deformities. Right 5th and 6th rib fracture deformities. Impression: 16.2 x 6.6 x 11.5 cm collection which appears in the extraperitoneal space favored to represent blood products. Posterior to the right kidney nonspecific stranding/prominent retroperitoneal densities; hemoperitoneum versus infection or phlegmon/collection suspected. Asymmetric enlargement of the right iliopsoas. Hemorrhage is favored. Correlate clinically. Upper abdominal varices. Cirrhotic appearance of the liver. Splenomegaly. Diffuse abdominal pelvic ascites. Diffuse anasarca. Cardiomegaly. Dense coronary artery calcifications. Bilateral small pleural effusions and associated compressive consolidations. Scattered regions of bilateral consolidation, possibly aspiration/pneumonia. Right upper lobe scarring or atelectasis. Endotracheal tube terminates approximately 1.5 cm above the jl. Bilateral 5th and 6th rib fractures. Additional findings as above. Preliminary impression was provided by [facility]. Dr. Castro discussed emergent findings with Dr. Phoenix on 06/18/18 at 858pm. Patient at the time of final dictation.
[2018-06-19 14:24] VITALS: BP 102/18; PULSE 84; RESP 0; O2SAT 96
--- NOTE | 2018-06-19 16:05 | PCM.RRT ---
PRODUCT SAFETY OFFICER Nurses Assessment - Situation Date: 06/19/18 Time PRODUCT SAFETY OFFICER was called: 13:07 PRODUCT SAFETY OFFICER Responder Arrival Time:: 13:07 PRODUCT SAFETY OFFICER Location:: 9I ICU Room Number: 4 PRODUCT SAFETY OFFICER Reason for Call: Respiratory Distress (Code blue), Not Responding to Urgent Treatment PRODUCT SAFETY OFFICER Called By: RN - Ventilator Settings FIO2 (% Oxygen): 100 - Neurological Status Other (Please specify): Unresponsive - Respiratory Oxygen Delivery Method: Intubated - Constitutional Additional Comments: Unresponsive - Head Head Exam: ATRAUMATIC, NORMAL INSPECTION - Eyes Additional Comments: Pupils fixed and dilated - Respiratory Exam Additional comments: Intubated on PRVC - Cardiovascular Exam Cardiovascular Exam: Bradycardia, +S1, +S2 - GI/Abdominal Exam GI & Abdominal Exam: Distended - Neurological Exam Neurological Exam: absent: Alert, Awake - Extremities Exam Additional comments: Bilateral LE +1 pitting edema Plan - Assessment of Findings&Treatment Plan Code ernesto was called at 13:07 - Patient unresponsive, pupils were fixed and dilated - Chest compressions and manual bagging initiated - Patient received Epi X 4, ROSC was not achieved - Patient was pronounced at 13:25 - Patient's father and family members present in the ICU - PMD, Dr. James Ballard notified See pronouncement note.
--- NOTE | 2018-06-19 16:21 | CP.PCM.PN ---
Subjective - Date & Time of Evaluation Date of Evaluation: 06/19/18 Time of Evaluation: 10:00 - Subjective Subjective: clinically same Objective - Vital Signs/Intake and Output Vital Signs (last 24 hours): Temp Pulse Resp BP Pulse Ox 96.0 F L 84 0 L 102/18 L 96 06/19/18 08:42 06/19/18 13:15 06/19/18 14:00 06/19/18 13:12 06/19/18 13:15 Intake and Output: 06/19/18 06/19/18 06:59 18:59 Intake Total 51464.0 7031.0 Output Total 5 5 Balance 20550.0 7026.0 - Labs Labs: 06/19/18 09:32 06/19/18 05:15 PT 36.1 SECONDS (9.7-12.2) H D 06/19/18 05:15 INR 3.3 H* D 06/19/18 05:15 APTT 156 SECONDS (21-34) H* D 06/19/18 05:15 - Constitutional Appears: Well - Head Exam Head Exam: ATRAUMATIC, NORMAL INSPECTION, NORMOCEPHALIC - Eye Exam Eye Exam: EOMI, Normal appearance, PERRL Pupil Exam: NORMAL ACCOMODATION, PERRL - ENT Exam ENT Exam: Mucous Membranes Moist, Normal Exam - Neck Exam Neck Exam: Full ROM, Normal Inspection. absent: Lymphadenopathy - Respiratory Exam Respiratory Exam: Decreased Breath Sounds - Cardiovascular Exam Cardiovascular Exam: REGULAR RHYTHM, +S1, +S2 - GI/Abdominal Exam GI & Abdominal Exam: Soft, Diminished Bowel Sounds - Rectal Exam Rectal Exam: Deferred
--- NOTE | 2018-06-19 18:13 | CP.PCM.CON ---
History of Present Illness - History of Present Illness History of Present Illness: 38 year old male with a history of alcoholic liver cirrhosis, presenting with respiratory failure, GI bleeding, severe anemia, thrombocytopenia, and coagulopathy. The patient is currently vented and I am unable to obtain a history. His hgb was found to be 3.4 on admission and required massive transfusion support. He is receiving PRBC's, platelets, FFP, cryopercipitate and vitamin K with continued bleeding and low blood counts. Past medical, surgical, family, social history cannot be obtained from the patient. Allergies: NKA per documentation Review of systems cannot be obtained. Past Patient History - Past Medical History & Family History Past Medical History?: Yes - Past Social History Smoking Status: Former Smoker Alcohol: > 2 Drinks/Day - HEMATOLOGICAL/ONCOLOGICAL Hx Blood Disorders: Yes Hx Cirrhosis: Yes Other/Comment: liver problems - INTEGUMENTARY Hx Dermatological Problems: No - MUSCULOSKELETAL/RHEUMATOLOGICAL Hx Musculoskeletal Disorders: Yes Hx Falls: Yes - GASTROINTESTINAL Hx Liver Failure: Yes - GENITOURINARY/GYNECOLOGICAL Hx Genitourinary Disorders: No - PSYCHIATRIC Hx Substance Use: No - SURGICAL HISTORY Hx Surgeries: No - ANESTHESIA Hx Anesthesia: No Meds Allergies/Adverse Reactions: Allergies Allergy/AdvReac Type Severity Reaction Status Date / Time No Known Allergies Allergy Verified 06/18/18 18:00 Physical Exam - Head Exam Head Exam: ATRAUMATIC - Eye Exam Eye Exam: Scleral icterus - ENT Exam ENT Exam: Mucous Membranes Dry - Respiratory Exam Respiratory Exam: Decreased Breath Sounds - Cardiovascular Exam Cardiovascular Exam: +S1, +S2 - GI/Abdominal Exam GI & Abdominal Exam: Normal Bowel Sounds - Extremities Exam Extremities exam: Positive for: pedal edema Results - Vital Signs Recent Vital Signs: Last Vital Signs Temp 96.0 F L 06/19/18 08:42 Pulse 84 06/19/18 13:15 Resp 0 L 06/19/18 14:00 BP 102/18 L 06/19/18 13:12 Pulse Ox 96 06/19/18 13:15 - Labs Result Diagrams: 06/19/18 09:32 06/19/18 05:15 Labs: Laboratory Results - last 24 hr 06/18/18 06/18/18 06/18/18 18:05 18:10 18:15 WBC 12.2 H RBC 0.88 L Hgb 3.4 L* D Hct 11.5 L MCV 130.3 H D MCH 38.7 H MCHC 29.7 L RDW 19.2 H Plt Count 57 L MPV 8.3 Neut % (Auto) 73.1 Lymph % (Auto) 10.0 L [place] % (Auto) 15.8 H Eos % (Auto) 0.2 Baso % (Auto) 0.9 Neut # (Auto) 8.9 H Lymph # (Auto) 1.2 [place] # (Auto) 1.9 H Eos # (Auto) 0.0 Baso # (Auto) 0.1 Neutrophils % (Manual) 63 Band Neutrophils % 9 H Lymphocytes % (Manual) 14 L Monocytes % (Manual) 9 Myelocytes % 5 H Nucleated RBC % 6 H Differential Comment Platelet Estimate Decreased L Polychromasia Slight Hypochromasia (manual) Marked Poikilocytosis (manual Moderate Anisocytosis (manual) Moderate Microcytosis (manual) Moderate Macrocytosis (manual) Moderate Target Cells Slight Tear Drop Cells Slight Ovalocytes Slight Luis Cells Moderate Acanthocytes (Spur) Moderate Smear Path Review PT INR APTT Fibrinogen Puncture Site pCO2 pO2 41 HCO3 ABG pH ABG Total CO2 ABG O2 Saturation ABG Base Excess ABG Hemoglobin ABG Carboxyhemoglobin POC ABG HHb (Measured) ABG Methemoglobin Jorge Test ABG Potassium VBG pH < 6.80 L* VBG pCO2 53 VBG HCO3 VBG Total CO2 VBG O2 Sat (Calc) 52.9 VBG Base Excess VBG Potassium 4.2 A-a O2 Difference Respiratory Index Hgb O2 Saturation Sodium 134.0 Chloride 104.0 Glucose 64 L Lactate 18.7 H* Vent Mode Mechanical Rate FiO2 Tidal Volume PEEP Crit Value Called To Dr carrasco Crit Value Called By Edie rt Crit Value Read Back Y Blood Gas Notified Time 1815 Potassium Carbon Dioxide Anion Gap BUN Creatinine Est GFR ( Amer) Est GFR (Non-Af Amer) POC Glucose (mg/dL) 65 Random Glucose Calcium Phosphorus Magnesium Total Bilirubin AST ALT Alkaline Phosphatase Ammonia Troponin I NT-Pro-B Natriuret Pep Total Protein Albumin Globulin Albumin/Globulin Ratio Triglycerides Cholesterol LDL Cholesterol Direct HDL Cholesterol Lipase Arterial Blood Potassium Venous Blood Potassium 4.2 Urine Color Urine Clarity Urine pH Ur Specific [place] Urine Protein Urine Glucose (UA) Urine Ketones Urine Blood Urine Nitrate Urine Bilirubin Urine Urobilinogen Ur Leukocyte Esterase Urine WBC (Auto) Urine RBC (Auto) Urine Opiates Screen Urine Methadone Screen Ur Barbiturates Screen Ur Phencyclidine Scrn Ur Amphetamines Screen U Benzodiazepines Scrn U Oth Cocaine Metabols U Cannabinoids Screen Blood Type Antibody Screen 06/18/18 06/18/18 06/18/18 18:15 18:15 18:15 WBC RBC Hgb Hct MCV MCH MCHC RDW Plt Count MPV Neut % (Auto) Lymph % (Auto) [place] % (Auto) Eos % (Auto) Baso % (Auto) Neut # (Auto) Lymph # (Auto) [place] # (Auto) Eos # (Auto) Baso # (Auto) Neutrophils % (Manual) Band Neutrophils % Lymphocytes % (Manual) Monocytes % (Manual) Myelocytes % Nucleated RBC % Differential Comment Platelet Estimate Polychromasia Hypochromasia (manual) Poikilocytosis (manual Anisocytosis (manual) Microcytosis (manual) Macrocytosis (manual) Target Cells Tear Drop Cells Ovalocytes [place] Cells Acanthocytes (Spur) Smear Path Review PT 64.3 H INR 5.8 H* APTT 97 H Fibrinogen Puncture Site pCO2 pO2 HCO3 ABG pH ABG Total CO2 ABG O2 Saturation ABG Base Excess ABG Hemoglobin ABG Carboxyhemoglobin POC ABG HHb (Measured) ABG Methemoglobin Jorge Test ABG Potassium VBG pH VBG pCO2 VBG HCO3 VBG Total CO2 VBG O2 Sat (Calc) VBG Base Excess VBG Potassium A-a O2 Difference Respiratory Index Hgb O2 Saturation Sodium 132 Chloride 101 Glucose Lactate Vent Mode Mechanical Rate FiO2 Tidal Volume PEEP Crit Value Called To Crit Value Called By Crit Value Read Back Blood Gas Notified Time Potassium 4.5 Carbon Dioxide 7 L* D Anion Gap 28 H BUN 9 Creatinine 1.2 Est GFR ( Amer) > 60 Est GFR (Non-Af Amer) > 60 POC Glucose (mg/dL) Random Glucose 63 L Calcium 7.4 L Phosphorus Magnesium Total Bilirubin 11.8 H AST 129 H ALT 24 Alkaline Phosphatase 76 Ammonia Troponin I 0.0860 NT-Pro-B Natriuret Pep 1730 H Total Protein 6.3 Albumin 2.4 L D Globulin 3.9 Albumin/Globulin Ratio 0.6 L Triglycerides 92 Cholesterol 127 LDL Cholesterol Direct < 30 HDL Cholesterol 41 Lipase 160 Arterial Blood Potassium Venous Blood Potassium Urine Color Urine Clarity Urine pH Ur Specific [place] Urine Protein Urine Glucose (UA) Urine Ketones Urine Blood Urine Nitrate Urine Bilirubin Urine Urobilinogen Ur Leukocyte Esterase Urine WBC (Auto) Urine RBC (Auto) Urine Opiates Screen Urine Methadone Screen Ur Barbiturates Screen Ur Phencyclidine Scrn Ur Amphetamines Screen U Benzodiazepines Scrn U Oth Cocaine Metabols U Cannabinoids Screen Blood Type B NEGATIVE Antibody Screen Negative 06/18/18 06/18/18 06/18/18 18:15 18:29 18:30 WBC RBC Hgb Hct MCV MCH MCHC RDW Plt Count MPV Neut % (Auto) Lymph % (Auto) [place] % (Auto) Eos % (Auto) Baso % (Auto) Neut # (Auto) Lymph # (Auto) [place] # (Auto) Eos # (Auto) Baso # (Auto) Neutrophils % (Manual) Band Neutrophils % Lymphocytes % (Manual) Monocytes % (Manual) Myelocytes % Nucleated RBC % Differential Comment Platelet Estimate Polychromasia Hypochromasia (manual) Poikilocytosis (manual Anisocytosis (manual) Microcytosis (manual) Macrocytosis (manual) Target Cells Tear Drop Cells Ovalocytes Luis Cells Acanthocytes (Spur) Smear Path Review PT INR APTT Fibrinogen Puncture Site pCO2 pO2 HCO3 ABG pH ABG Total CO2 ABG O2 Saturation ABG Base Excess ABG Hemoglobin ABG Carboxyhemoglobin POC ABG HHb (Measured) ABG Methemoglobin Jorge Test ABG Potassium VBG pH VBG pCO2 VBG HCO3 VBG Total CO2 VBG O2 Sat (Calc) VBG Base Excess VBG Potassium A-a O2 Difference Respiratory Index Hgb O2 Saturation Sodium Chloride Glucose Lactate Vent Mode Mechanical Rate FiO2 Tidal Volume PEEP Crit Value Called To Crit Value Called By Crit Value Read Back Blood Gas Notified Time Potassium Carbon Dioxide Anion Gap BUN Creatinine Est GFR ( Amer) Est GFR (Non-Af Amer) POC Glucose (mg/dL) 118 H Random Glucose Calcium Phosphorus Magnesium Total Bilirubin AST ALT Alkaline Phosphatase Ammonia 235 H D Troponin I NT-Pro-B Natriuret Pep Total Protein Albumin Globulin Albumin/Globulin Ratio Triglycerides Cholesterol LDL Cholesterol Direct HDL Cholesterol Lipase Arterial Blood Potassium Venous Blood Potassium Urine Color [place] Urine Clarity Hazy Urine pH 5.0 Ur Specific [place] 1.015 Urine Protein 1+ H Urine Glucose (UA) Normal Urine Ketones Negative Urine Blood 1+ H Urine Nitrate Negative Urine Bilirubin 1+ H Urine Urobilinogen 4.0 Ur Leukocyte Esterase Neg Urine WBC (Auto) < 1 Urine RBC (Auto) < 1 Urine Opiates Screen Urine Methadone Screen Ur Barbiturates Screen Ur Phencyclidine Scrn Ur Amphetamines Screen U Benzodiazepines Scrn U Oth Cocaine Metabols U Cannabinoids Screen Blood Type Antibody Screen 06/18/18 06/18/18 06/18/18 18:30 19:00 19:02 WBC RBC Hgb Hct MCV MCH MCHC RDW Plt Count MPV Neut % (Auto) Lymph % (Auto) [place] % (Auto) Eos % (Auto) Baso % (Auto) Neut # (Auto) Lymph # (Auto) [place] # (Auto) Eos # (Auto) Baso # (Auto) Neutrophils % (Manual) Band Neutrophils % Lymphocytes % (Manual) Monocytes % (Manual) Myelocytes % Nucleated RBC % Differential Comment Platelet Estimate Polychromasia Hypochromasia (manual) Poikilocytosis (manual Anisocytosis (manual) Microcytosis (manual) Macrocytosis (manual) Target Cells Tear Drop Cells Ovalocytes Luis Cells Acanthocytes (Spur) Smear Path Review PT INR APTT Fibrinogen Puncture Site Rba pCO2 30 L pO2 233 H HCO3 6.9 L* ABG pH 6.93 L* ABG Total CO2 7.2 L ABG O2 Saturation 101.9 H ABG Base Excess -23.2 L ABG Hemoglobin 3.3 L ABG Carboxyhemoglobin 5.2 H POC ABG HHb (Measured) -1.8 L ABG Methemoglobin 2.4 Jorge Test Na ABG Potassium VBG pH VBG pCO2 VBG HCO3 VBG Total CO2 VBG O2 Sat (Calc) VBG Base Excess VBG Potassium A-a O2 Difference 443.0 Respiratory Index 1.9 Hgb O2 Saturation 94.3 L Sodium Chloride Glucose Lactate Vent Mode Prvc Mechanical Rate 18 FiO2 100.0 Tidal Volume 550 PEEP 6 Crit Value Called To Er nurse vance Crit Value Called By Edie rt Crit Value Read Back Y Blood Gas Notified Time 1905 Potassium Carbon Dioxide Anion Gap BUN Creatinine Est GFR ( Amer) Est GFR (Non-Af Amer) POC Glucose (mg/dL) Random Glucose Calcium Phosphorus 8.8 H Magnesium 2.0 Total Bilirubin AST ALT Alkaline Phosphatase Ammonia Troponin I NT-Pro-B Natriuret Pep Total Protein Albumin Globulin Albumin/Globulin Ratio Triglycerides Cholesterol LDL Cholesterol Direct HDL Cholesterol Lipase Arterial Blood Potassium Venous Blood Potassium Urine Color Urine Clarity Urine pH Ur Specific [place] Urine Protein Urine Glucose (UA) Urine Ketones Urine Blood Urine Nitrate Urine Bilirubin Urine Urobilinogen Ur Leukocyte Esterase Urine WBC (Auto) Urine RBC (Auto) Urine Opiates Screen Negative Urine Methadone Screen Negative Ur Barbiturates Screen Negative Ur Phencyclidine Scrn Negative Ur Amphetamines Screen Negative U Benzodiazepines Scrn Negative U Oth Cocaine Metabols Negative U Cannabinoids Screen Negative Blood Type Antibody Screen 06/18/18 06/18/18 06/18/18 21:44 23:25 23:25 WBC 15.9 H RBC 1.12 L Hgb 3.9 L* Hct 12.3 L MCV 109.4 H D MCH 34.5 H MCHC 31.6 L RDW 25.5 H Plt Count 13 L* D MPV 11.1 Neut % (Auto) 73.6 Lymph % (Auto) 13.1 L [place] % (Auto) 12.2 H Eos % (Auto) 0.6 Baso % (Auto) 0.5 Neut # (Auto) 11.7 H Lymph # (Auto) 2.1 [place] # (Auto) 1.9 H Eos # (Auto) 0.1 Baso # (Auto) 0.1 Neutrophils % (Manual) Band Neutrophils % Lymphocytes % (Manual) Monocytes % (Manual) Myelocytes % Nucleated RBC % Differential Comment Platelet Estimate Polychromasia Hypochromasia (manual) Poikilocytosis (manual Anisocytosis (manual) Microcytosis (manual) Macrocytosis (manual) Target Cells Tear Drop Cells Ovalocytes [place] Cells Acanthocytes (Spur) Smear Path Review PT 97.9 H D INR 8.9 H* D APTT 184 H* D Fibrinogen < 35 L Puncture Site pCO2 pO2 HCO3 ABG pH ABG Total CO2 ABG O2 Saturation ABG Base Excess ABG Hemoglobin ABG Carboxyhemoglobin POC ABG HHb (Measured) ABG Methemoglobin Jorge Test ABG Potassium VBG pH VBG pCO2 VBG HCO3 VBG Total CO2 VBG O2 Sat (Calc) VBG Base Excess VBG Potassium A-a O2 Difference Respiratory Index Hgb O2 Saturation Sodium Chloride Glucose Lactate Vent Mode Mechanical Rate FiO2 Tidal Volume PEEP Crit Value Called To Crit Value Called By Crit Value Read Back Blood Gas Notified Time Potassium Carbon Dioxide Anion Gap BUN Creatinine Est GFR ( Amer) Est GFR (Non-Af Amer) POC Glucose (mg/dL) Random Glucose Calcium Phosphorus Magnesium Total Bilirubin AST ALT Alkaline Phosphatase Ammonia Troponin I NT-Pro-B Natriuret Pep Total Protein Albumin Globulin Albumin/Globulin Ratio Triglycerides Cholesterol LDL Cholesterol Direct HDL Cholesterol Lipase Arterial Blood Potassium Venous Blood Potassium Urine Color Urine Clarity Urine pH Ur Specific [place] Urine Protein Urine Glucose (UA) Urine Ketones Urine Blood Urine Nitrate Urine Bilirubin Urine Urobilinogen Ur Leukocyte Esterase Urine WBC (Auto) Urine RBC (Auto) Urine Opiates Screen Urine Methadone Screen Ur Barbiturates Screen Ur Phencyclidine Scrn Ur Amphetamines Screen U Benzodiazepines Scrn U Oth Cocaine Metabols U Cannabinoids Screen Blood Type Antibody Screen 06/19/18 06/19/18 06/19/18 00:21 00:30 02:05 WBC RBC Hgb Hct MCV MCH MCHC RDW Plt Count MPV Neut % (Auto) Lymph % (Auto) [place] % (Auto) Eos % (Auto) Baso % (Auto) Neut # (Auto) Lymph # (Auto) [place] # (Auto) Eos # (Auto) Baso # (Auto) Neutrophils % (Manual) Band Neutrophils % Lymphocytes % (Manual) Monocytes % (Manual) Myelocytes % Nucleated RBC % Differential Comment Platelet Estimate Polychromasia Hypochromasia (manual) Poikilocytosis (manual Anisocytosis (manual) Microcytosis (manual) Macrocytosis (manual) Target Cells Tear Drop Cells Ovalocytes [place] Cells Acanthocytes (Spur) Smear Path Review PT INR APTT Fibrinogen Puncture Site Lb pCO2 31 L pO2 99 102 H HCO3 3.6 L* ABG pH 6.87 L* ABG Total CO2 6.7 L ABG O2 Saturation 99.5 H ABG Base Excess -27.1 L ABG Hemoglobin ABG Carboxyhemoglobin POC ABG HHb (Measured) ABG Methemoglobin Jorge Test Na ABG Potassium 5.2 VBG pH 6.93 L* VBG pCO2 32 L VBG HCO3 5.3 VBG Total CO2 7.7 L VBG O2 Sat (Calc) 99.7 H VBG Base Excess -25.0 L VBG Potassium 5.1 A-a O2 Difference 575.0 Respiratory Index 5.8 Hgb O2 Saturation Sodium 132.0 133 132.0 Chloride 102.0 102 101.0 Glucose 87 145 H Lactate > 20.0 H* > 20.0 H* Vent Mode Prvc Mechanical Rate 20 FiO2 100.0 100.0 Tidal Volume 550 PEEP 5 5 Crit Value Called To Dr. maribell Quiñonez rn Crit Value Called By Sofía rotary furnace operator Sofía rotary furnace operator Crit Value Read Back Y Y Blood Gas Notified Time 26 209 Potassium 5.3 H Carbon Dioxide 6 L* Anion Gap 30 H BUN 10 Creatinine 1.5 Est GFR ( Amer) > 60 Est GFR (Non-Af Amer) 52 POC Glucose (mg/dL) Random Glucose 85 Calcium 6.5 L Phosphorus Magnesium Total Bilirubin AST ALT Alkaline Phosphatase Ammonia Troponin I NT-Pro-B Natriuret Pep Total Protein Albumin Globulin Albumin/Globulin Ratio Triglycerides Cholesterol LDL Cholesterol Direct HDL Cholesterol Lipase Arterial Blood Potassium 5.2 Venous Blood Potassium 5.1 Urine Color Urine Clarity Urine pH Ur Specific [place] Urine Protein Urine Glucose (UA) Urine Ketones Urine Blood Urine Nitrate Urine Bilirubin Urine Urobilinogen Ur Leukocyte Esterase Urine WBC (Auto) Urine RBC (Auto) Urine Opiates Screen Urine Methadone Screen Ur Barbiturates Screen Ur Phencyclidine Scrn Ur Amphetamines Screen U Benzodiazepines Scrn U Oth Cocaine Metabols U Cannabinoids Screen Blood Type Antibody Screen 06/19/18 06/19/18 06/19/18 05:15 05:15 05:15 WBC 9.4 RBC 0.79 L Hgb 2.6 L* Hct 8.1 L MCV 101.7 H D MCH 33.0 H MCHC 32.5 L RDW 17.4 H Plt Count 44 L D MPV 6.9 L Neut % (Auto) 75.0 Lymph % (Auto) 9.6 L [place] % (Auto) 14.6 H Eos % (Auto) 0.5 Baso % (Auto) 0.3 Neut # (Auto) 7.1 H Lymph # (Auto) 0.9 L [place] # (Auto) 1.4 H Eos # (Auto) 0.0 Baso # (Auto) 0.0 Neutrophils % (Manual) 49 L Band Neutrophils % 29 H* Lymphocytes % (Manual) 9 L Monocytes % (Manual) 13 H Myelocytes % Nucleated RBC % 3 H Differential Comment Platelet Estimate Decreased L Polychromasia Slight Hypochromasia (manual) Slight Poikilocytosis (manual Anisocytosis (manual) Slight Microcytosis (manual) Slight Macrocytosis (manual) Slight Target Cells Tear Drop Cells Ovalocytes Luis Cells Slight Acanthocytes (Spur) Smear Path Review PT 36.1 H D INR 3.3 H* D APTT 156 H* D Fibrinogen Puncture Site pCO2 pO2 HCO3 ABG pH ABG Total CO2 ABG O2 Saturation ABG Base Excess ABG Hemoglobin ABG Carboxyhemoglobin POC ABG HHb (Measured) ABG Methemoglobin Jorge Test ABG Potassium VBG pH VBG pCO2 VBG HCO3 VBG Total CO2 VBG O2 Sat (Calc) VBG Base Excess VBG Potassium A-a O2 Difference Respiratory Index Hgb O2 Saturation Sodium 134 Chloride 100 Glucose Lactate Vent Mode Mechanical Rate FiO2 Tidal Volume PEEP Crit Value Called To Crit Value Called By Crit Value Read Back Blood Gas Notified Time Potassium 4.9 Carbon Dioxide 6 L* Anion Gap 33 H BUN 9 Creatinine 1.6 H Est GFR ( Amer) 58 Est GFR (Non-Af Amer) 48 POC Glucose (mg/dL) Random Glucose 117 H Calcium 5.7 L* Phosphorus 10.4 H Magnesium 2.0 Total Bilirubin 5.9 H AST 410 H D ALT 75 H D Alkaline Phosphatase 21 L D Ammonia Troponin I NT-Pro-B Natriuret Pep Total Protein 3.5 L Albumin 1.4 L D Globulin 2.0 L Albumin/Globulin Ratio 0.7 L Triglycerides Cholesterol LDL Cholesterol Direct HDL Cholesterol Lipase Arterial Blood Potassium Venous Blood Potassium Urine Color Urine Clarity Urine pH Ur Specific [place] Urine Protein Urine Glucose (UA) Urine Ketones Urine Blood Urine Nitrate Urine Bilirubin Urine Urobilinogen Ur Leukocyte Esterase Urine WBC (Auto) Urine RBC (Auto) Urine Opiates Screen Urine Methadone Screen Ur Barbiturates Screen Ur Phencyclidine Scrn Ur Amphetamines Screen U Benzodiazepines Scrn U Oth Cocaine Metabols U Cannabinoids Screen Blood Type Antibody Screen 06/19/18 06/19/18 05:40 09:32 WBC 7.2 RBC 1.05 L Hgb 3.4 L* Hct 10.1 L MCV 96.7 H D MCH 32.6 H MCHC 33.8 RDW 14.8 H Plt Count 19 L* D MPV 7.6 Neut % (Auto) 71.4 Lymph % (Auto) 12.9 L [place] % (Auto) 14.9 H Eos % (Auto) 0.3 Baso % (Auto) 0.5 Neut # (Auto) 5.1 Lymph # (Auto) 0.9 L [place] # (Auto) 1.1 H Eos # (Auto) 0.0 Baso # (Auto) 0.0 Neutrophils % (Manual) Band Neutrophils % Lymphocytes % (Manual) Monocytes % (Manual) Myelocytes % Nucleated RBC % Differential Comment Platelet Estimate Polychromasia Hypochromasia (manual) Poikilocytosis (manual Anisocytosis (manual) Microcytosis (manual) Macrocytosis (manual) Target Cells Tear Drop Cells Ovalocytes Luis Cells Acanthocytes (Spur) Smear Path Review PT INR APTT Fibrinogen Puncture Site Lb/rn pCO2 31 L pO2 45 L HCO3 3.2 L* ABG pH 6.90 L* ABG Total CO2 7.1 L ABG O2 Saturation ABG Base Excess -26.1 L ABG Hemoglobin < 3.0 L ABG Carboxyhemoglobin POC ABG HHb (Measured) ABG Methemoglobin Jorge Test Na ABG Potassium VBG pH VBG pCO2 VBG HCO3 VBG Total CO2 VBG O2 Sat (Calc) VBG Base Excess VBG Potassium A-a O2 Difference 629.0 Respiratory Index 14.0 Hgb O2 Saturation Sodium Chloride Glucose Lactate Vent Mode Prvc Mechanical Rate 24 FiO2 100.0 Tidal Volume 550 PEEP 5 Crit Value Called To Jack montgomery/rn Crit Value Called By Candelario doran/rt Crit Value Read Back Y Blood Gas Notified Time 555 Potassium Carbon Dioxide Anion Gap BUN Creatinine Est GFR ( Amer) Est GFR (Non-Af Amer) POC Glucose (mg/dL) Random Glucose Calcium Phosphorus Magnesium Total Bilirubin AST ALT Alkaline Phosphatase Ammonia Troponin I NT-Pro-B Natriuret Pep Total Protein Albumin Globulin Albumin/Globulin Ratio Triglycerides Cholesterol LDL Cholesterol Direct HDL Cholesterol Lipase Arterial Blood Potassium Venous Blood Potassium Urine Color Urine Clarity Urine pH Ur Specific [place] Urine Protein Urine Glucose (UA) Urine Ketones Urine Blood Urine Nitrate Urine Bilirubin Urine Urobilinogen Ur Leukocyte Esterase Urine WBC (Auto) Urine RBC (Auto) Urine Opiates Screen Urine Methadone Screen Ur Barbiturates Screen Ur Phencyclidine Scrn Ur Amphetamines Screen U Benzodiazepines Scrn U Oth Cocaine Metabols U Cannabinoids Screen Blood Type Antibody Screen Assessment & Plan (1) Anemia Assessment and Plan: GI blood loss transfusion support Status: Acute (2) Thrombocytopenia Assessment and Plan: liver cirrhosis, splenic sequestration, dilutional effect from massive transfusion platelet transfusion Status: Acute (3) Coagulopathy Assessment and Plan: liver disease, dilutional FFP and cryopercipitate transfusion s/p vit k Thank you for this interesting consult. Status: Acute
--- NOTE | 2018-06-19 21:53 | CARD ---
APPROVED REPORT Date of service: 06/18/2018 EKG Measurement Heart [id number] <Conclusion> Normal sinus rhythm Inferior infarct, age undetermined Abnormal ECG
--- NOTE | 2018-06-20 03:36 | EEG ---
DATE: 06/19/2018 This is an electroencephalogram done at the bedside. The patient was intubated and comatose. The resting electroencephalogram shows burst suppression noted diffusely in bilateral cortical leads. Intermittent some loose lead artifacts noted over the left frontal lead. This is continuously noted from the beginning. Later this EKG artifact also contaminated the background rhythm. There is continuous burst suppression noted without any paroxysmal activities. CONCLUSION: This is an abnormal electroencephalogram because of persistent slowing with burst suppression consistent with global cerebral dysfunction. Some low delta activities noted suggestive of some brain activities in the beginning. IMPRESSION: This is global cerebral dysfunction manifesting with burst suppression. Some electrical activities noted which may disqualify the bilateral cerebral silence. However, overall prognosis is grave for this reading. Please correlate the finding with the neurological and the radiological studies. Maykel Woodard MD
== END 2018-06-19 14:30 | DRG 296 ==
LOC: C.ER 17:57 → C.9I 18:23
PROVIDERS: ADMIT Internal Medicine Nephrology; ATTEND Internal Medicine Nephrology
PROC: 5A1935Z Respiratory Ventilation, Less than 24 Consecutive Hours (ICD-10-PCS; principal; 2018-06-18)
PROC: 30233K1 Transfusion of Nonautologous Frozen Plasma into Peripheral Vein, Percutaneous Approach (ICD-10-PCS; 2018-06-18)
PROC: 30233N1 Transfusion of Nonautologous Red Blood Cells into Peripheral Vein, Percutaneous Approach (ICD-10-PCS; 2018-06-18)
PROC: 30233R1 Transfusion of Nonautologous Platelets into Peripheral Vein, Percutaneous Approach (ICD-10-PCS; 2018-06-18)
PROC: 30233M1 Transfusion of Nonautologous Plasma Cryoprecipitate into Peripheral Vein, Percutaneous Approach (ICD-10-PCS; 2018-06-18)
PROC: 0D9670Z Drainage of Stomach with Drainage Device, Via Natural or Artificial Opening (ICD-10-PCS; 2018-06-18)
PROC: 06HM33Z Insertion of Infusion Device into Right Femoral Vein, Percutaneous Approach (ICD-10-PCS; 2018-06-18)
PROC: 5A12012 Performance of Cardiac Output, Single, Manual (ICD-10-PCS; 2018-06-19)
DX: I46.9 Cardiac arrest, cause unspecified (principal); J96.91 Respiratory failure, unspecified with hypoxia; J69.0 Pneumonitis due to inhalation of food and vomit; G93.1 Anoxic brain damage, not elsewhere classified; K92.2 Gastrointestinal hemorrhage, unspecified; D68.9 Coagulation defect, unspecified; E87.2 Acidosis; G40.501 Epileptic seizures related to external causes, not intractable, with status epilepticus; K70.30 Alcoholic cirrhosis of liver without ascites; N19 Unspecified kidney failure; D64.9 Anemia, unspecified; D69.6 Thrombocytopenia, unspecified; F10.10 Alcohol abuse, uncomplicated; E66.01 Morbid (severe) obesity due to excess calories; Z87.891 Personal history of nicotine dependence